=== PATIENT | male | born 1970 | race Two or more races ===

== ENCOUNTER 2021-06-06 09:06 | Outpatient (REF) | payer MEDICARE, MEDICAID, SELFPAY ==
--- NOTE | 2021-06-06 | PFT_ITS ---
Forced vital capacity 78%, FEV1 81%, VYN24-92 81%, and MVV is 90%. Post bronchodilator therapy, there is slight improvement in QUL18-04. Total lung capacity 88%. Residual volume 108%. Diffusion capacity 84%. CONCLUSION: This study is normal and there is no evidence of any restrictive or obstructive airway disorder. Clinical correlation is recommended. Ze Cruz MD MSB/MODL / [id number]
--- NOTE | 2021-06-06 09:01 | CA_ITS ---
Transthoracic Echocardiogram Patient (Last, First, Middle): Jeremy Haynes, Gender: Male Date of : 1970 Age: 50 Procedure Date: 06/06/2021 Procedure Type: Transthoracic Echocardiogram Location: OP Height: 182.88 cm Weight: 113.4 kg BSA: 2.34 m2 Heart Rate: bpm BP: 120 / 78 mmHg Hyperbaric Technician: YR/TO Referring MD: Erika Harding MD Homicide Squad Sergeant: Nolan Morley MD Symptoms: I10 HTN J45.20 MILD INTERMITTENT ASTHMA Study Quality: Fair ECG Rhythm: Sinus Conclusions: - 1. Normal LV systolic function with grade 1 diastolic dysfunction 2. Normal cardiac valvular Doppler 3. Normal RV systolic pressure 4. No pericardial effusion Findings Procedure Information The patient declines contrast. Left Ventricle Normal left ventricular size, thickness, and systolic function. The visually estimated ejection fraction is between 55-60%. Spectral Doppler is indicative of an impaired relaxation filling pattern. E/E prime ratio is <8, consistent with normal filling pressures. Right Ventricle Normal right ventricular cavity size and systolic function. Atria The left atrium is normal in size. There is no evidence of interatrial shunt. The right atrium is normal in size. Aortic Valve Normal aortic valve structure and function. There is no aortic valve stenosis. There is no aortic valve regurgitation. Mitral Valve Normal mitral valve structure and function. There is trace mitral valve regurgitation. There is no mitral valve stenosis. Pulmonic Valve The pulmonic valve was not well visualized. Tricuspid Valve Likely normal tricuspid valve structure and function. There is trace tricuspid valve regurgitation. The right ventricular systolic pressure is normal. The right ventricular systolic pressure is 33 mmHg. Normal right atrial pressure. There is no evidence of pulmonary hypertension. Great Vessels All visible segments of the aorta are normal in size. The pulmonary artery was not well visualized. Venous The inferior vena cava is normal in size and collapses greater than 50% with inspiration. Pericardium/Pleural There is no evidence of pericardial effusion. Prior Study Comparison No prior study available for comparison. Measurements 2D Linear Measurements IVSd: 0.94 0.6-0.9/0.6-1.0 cm LVIDd: 4.64 3.9-5.3/4.2-5.9 cm LVIDd Index: 1.98 2.4-3.2/2.2-3.1 cm/m2 LVIDs: 2.89 2.0-3.6 cm LVPWd: 0.92 0.7-1.1 cm LA Diam: 4.10 2.7-3.8/3.0-4.0 cm LAIDs Index: 1.75 1.5-2.3 cm/m2 LV Mass: 181.32 67-162/88-224 g LV Mass Index: 77.49 43-95/49-115 g/m2 LVOT Diam: 2.20 3.0+(-)1.3 cm 2D Systolic Function EF 4C: 57.80 >55% EF 2C: 57.70 >55% EF BiP: 57.80 >55% Mitral Valve MV Pk E: 0.67 MV PK A: 0.74 MV Decel Time: 280.00 E/A: 0.90 E'Lateral: 10.90 E'Medial: 10.10 E/E' Med: 6.60 E/E' Lat: 6.10 PHT: 82.00 MVA PHT: 2.68 Decel Kaufman: 2.39 Aortic Valve AoV Pk Olman: 1.48 AoV Mn Olman: 0.98 AoV VTI: 0.31 AoV Pk Grad: 9.00 Aov Mn Grad: 4.00 DEMARCUS Cont.VTI: 2.63 LVOT LVOT Pk Olman: 0.98 LVOT Mn Olman: 0.72 LVOT VTI: 0.21 LVOT Pk Grad: 4.00 LVOT Mn Grad: 2.00 LVOT Diam: 2.20 LVOT Area: 3.80 Diastolic Function MV Pk E: 0.67 MV Pk A: 0.74 E/A: 0.90 E'Medial: 10.10 E/E' Med: 6.60 E' Laterial: 10.90 E/E' Lat: 6.10 Right Ventricle TAPSE (mm): 20.70 TVS' Olman: 13.70 Tricuspid Valve TR Pk Olman: 2.48 TR Pk Grad: 25.00 RA Press: 8.00 RVSP: 33.00 Great Vessels Aorta Sinus of Valsalva: 3.11 2.0-3.[address] Ridge: 2.71 1.7-3.4 cm Ao Asc: 3.60 2.1-3.4 cm Updated in Other Vendor System with Status of Final Nolan Morley MD electronically signed on 06/07/2021 3:31:26 PM with status of Final
== END 2021-06-06 09:07 | disposition home or self-care (01) ==
LOC: HO.RESP 09:06
PROVIDERS: PCP Internal Medicine; Visit Provider Internal Medicine
DX: J45.20 Mild intermittent asthma, uncomplicated (principal); I10 Essential (primary) hypertension
CPT/HCPCS: 93306; 94060; 94727; 94729

== ENCOUNTER 2023-06-22 16:21 | Outpatient (REF) | payer MEDICAID, SELFPAY ==
--- NOTE | ~2023-06-22 | US_ITS ---
EXAMINATION: US RETROPERITONEAL LIMITED (RENAL ONLY) CLINICAL INFORMATION: Right-sided low back pain, hematuria, rule out kidney stone. COMPARISON: None available. TECHNIQUE: Ultrasound images of the bilateral kidneys. Limited visualization due to bowel gas. FINDINGS: RIGHT KIDNEY: 1.7 x 5.4 x 6.5 cm (SAG x AP x TRV). No hydronephrosis. No renal calculi. Renal cortical thickness is normal. Limited visualization. 1.0 cm upper pole and 0.9 cm lower pole cysts with benign features. There is no indication for follow-up imaging. LEFT KIDNEY: 11.4 x 6.5 x 5.7 cm (SAG x AP x TRV). No hydronephrosis. No renal calculi. Renal cortical thickness is normal. Limited visualization. 1.1 cm lower pole and 1.1 cm midpole cysts with benign features. There is no indication for follow-up imaging. US/US renal BI IMPRESSION: No hydronephrosis. No renal calculi. Limited visualization. CT scan could be considered for better visualization based on the clinical assessment.
== END 2023-06-22 16:22 | disposition home or self-care (01) ==
LOC: HO.US 16:21
PROVIDERS: PCP Internal Medicine; Visit Provider Internal Medicine
DX: M54.50 Low back pain, unspecified (principal); R31.29 Other microscopic hematuria; G89.29 Other chronic pain
CPT/HCPCS: 76775

== ENCOUNTER 2023-10-26 15:43 | Outpatient (REF) | payer MEDICAID, SELFPAY ==
--- NOTE | ~2023-10-26 | US_ITS ---
EXAMINATION: US SOFT TISSUE HEAD/NECK CLINICAL INFORMATION: Left parotid gland swelling. COMPARISON: Renal ultrasound 06/22/2023. TECHNIQUE: Linear transducer grayscale and color Doppler examination of the left parotid gland with right parotid gland for comparison. FINDINGS: Within the midportion of the left parotid gland are multiple complex hypoechoic foci the largest measuring 2.4 x 1.4 x 1.8 cm potentially representing parotid masses versus abnormal-appearing lymph nodes abutting the left parotid gland. The right parotid gland appears within normal limits. US/US soft tiss head and/or neck IMPRESSION: Within the midportion of the left parotid gland are multiple complex hypoechoic foci the largest measuring 2.4 x 1.4 x 1.8 cm potentially representing parotid masses versus abnormal-appearing lymph nodes abutting the left parotid gland. Further evaluation with contrast-enhanced CT or MRI of the neck can be considered. Electronically signed by: Yue Mccracken MD 10/31/2023 07:13 PM EDT
== END 2023-10-26 15:44 | disposition home or self-care (01) ==
LOC: HO.US 15:43
PROVIDERS: PCP Internal Medicine; Visit Provider Nurse Practitioner
DX: R22.9 Localized swelling, mass and lump, unspecified (principal)
CPT/HCPCS: 76536

== ENCOUNTER 2024-04-08 09:39 | Outpatient (REF) | payer MEDICAID, SELFPAY ==
--- OUTSIDE RECORDS SUMMARY | 2024-04-08 10:13 | XMS_ITS | Encounter Summary ---
Author Organization [employer] Address [address] [facility] [address] [place] [address] Care Team Providers Care Vocal Music Teacher Name Role Phone Erika Harding MD Primary Care Provider + Reason for Visit * Reason Comments Med Refill Encounter Details Date Type Department Care Team (Late st Contact Info) Description 01/04/2024 Refill [facility] [address] [place], [place] [phone] Erika Harding MD [address] [place], [place] [phone] Social History Tobacco Use Types Packs/Day Years Used Date Smoking Tobacco: Every Day Cigarettes 0.5 40 Cigars Passive Smoke Exposure: Current Smokeless Tobacco: Never Comments:Smokes a few cigars a day Alcohol Use Standard Drinks/Week Comments Never 0 (1 standard drink = 0.6 oz pur e alcohol) Housing Stability Answer Date Recorded What is your housing situation today? I have geno corey 04/17/[address] you li ve. Do you have problems with any of the following? None of the above 04/17/2023 Food Insecurity Answer Date Recorded Within the past 12 months, y ou worried that your food would run out before you got money to buy more: Never True 04/17/2023 Within the past 12 months,th e food you bought just didn't last and you didn't have enough money to get more: Never True 02/2023 Transportation Answer Date Recorded In the past 12 months, has l ack of transportation kept you from medical appts, meetings, work or from getting things needed for daily living? No 04/17/2023 Utilities Answer Date Recorded In the past 12 months, has t he electric, gas, oil or water company threatened to shut off services in your home? No 04/17/2023 Depression Answer Date Recorded Patient Health Questionnaire-2 Score 0 04/17/2023 Sex and Gender Information Value Date Recorded Sex Assigned at Male 12/16/2021 10:19 AM EDT Legal Sex Male 10:19 AM EDT Gender Identity Male 12/16/2021 10:19 AM EDT Sexual Orientation Choose not to disclose 2021 10:19 AM EDT documented as of this encounter Plan of Treatment Upcoming Encounters Date Type Department Care Team (Late st Contact Info) Description 04/14/2024 10:15 AM EST Office Visit [address] [address] Erika Harding MD [address] [place] [phone] 04/20/2024 2:00 PM EST Clinical Support [address] [address] Padma Mujica, REMBERTO documented as of this encounter Visit Diagnoses Not on filedocumented in this encounter Care Teams Vocal Music Teacher Relationship Specialty Start Date End Date Erika Harding MD [address] [place] [phone] PCP - General Family Medicine 11/28/15 documented as of this encounter
--- OUTSIDE RECORDS SUMMARY | 2024-04-08 10:13 | XMS_ITS | Encounter Summary ---
Author Organization [employer] Address [address] [facility] [address]t [place] [address] Care Team Providers Care Fish Straightener Name Role Phone Erika Harding MD Primary Care Provider + Reason for Visit * Reason Comments Med Change Request Encounter Details Date Type Department Care Team ([facility] st Contact Info) Description 03/02/2024 Refill [facility] [address] [place], [place] [phone] Erika Harding MD [address] [place], [place] [phone] Social History Tobacco Use Types Packs/Day Years [...] Description 04/14/2024 10:15 AM EST Office Visit [address] [address] Erika Harding MD [address] [place] [address] 04/20/2024 2:00 PM EST Clinical Support [address] [address] Padma Mujica, REMBERTO documented as of this encounter Visit Diagnoses Not on filedocumented in this encounter Care Teams Fish Straightener Relationship Specialty Start Date End Date Erika Harding MD [address] [place] [phone] PCP - General Family Medicine 11/28/15 documented as of this encounter
--- OUTSIDE RECORDS SUMMARY | 2024-04-08 10:13 | XMS_ITS | Encounter Summary ---
Author Organization [employer] Address [address] [facility] [address] [place] [address] Care Team Providers Care Skiving Machine Operator Name Role Phone Erika Harding MD Primary Care Provider + Reason for Visit * Reason Onset Date Comments Med Refill 03/29/2024 Encounter Details Date Type Department Care Team ([facility] st Contact Info) Description 03/29/2024 Refill [facility] [address] [place], [place] [phone] rEika Harding MD [address] [place] [address] Chronic bilateral low back pain with right-sided sciatica Social History Tobacco Use Types Packs/Day Years Used Date Smoking Tobacco: Every Day Cigarettes 0.5 40 Cigars Passive Smoke Exposure: Current Smokeless Tobacco: Never Comments:Smokes a few cigars a day Alcohol Use Standard Drinks/Week Comments Never 0 (1 standard drink = 0.6 oz pur e alcohol) Housing Stability Answer Date Recorded What is your housing situation today? I have geno nicole 04/17/[address] you li [...] AM EDT documented as of this encounter Miscellaneous Notes * Telephone Encounter - Tonia Tobin - 03/29/2024 8:34 AM EST TC from pt requesting medication refill. Medications needing refill : oxyCODONE (Roxicodone) 5 MG immediate release tablet To be sent to: [facility]/pharmacy #[id number] [place], [place] - [address] documented in this encounter Plan of Treatment Upcoming Encounters Date Type Department Care Team (Late st Contact Info) Description 04/14/2024 10:15 AM EST Office Visit [address] [address] Erika Harding MD [address] [place] [phone] 04/20/2024 2:00 PM EST Clinical Support [facility] [address] [place] [phone] Padma Mujica, REMBERTO documented as of this encounter Visit Diagnoses Diagnosis Chronic bilateral low back pain with right-sided sciatica documented in this encounter Care Teams Skiving Machine Operator Relationship Specialty Start Date End Date Erika Harding MD [address] [place] [phone] PCP - General Family Medicine 11/28/15 documented as of this encounter
--- OUTSIDE RECORDS SUMMARY | 2024-04-08 10:13 | XMS_ITS | Encounter Summary ---
Author Organization [employer] Address [address] [facility] [address] [place] [address] Care Team Providers Care Plant Clerk Name Role Phone Erika Harding MD Primary Care Provider + Reason for Visit * Reason Comments Pre-visit Planning SDOH screening negat omid and tobacco screening negative Encounter Details Date Type Department Care Team ([facility] st Contact Info) Description 03/31/2024 Patient Outreach [facility] [address] [place], [place] [phone] Erika Harding MD [address] [place] [address] Pre-visit Planning (SDOH screening negative and tobacco screening negative) Social History Tobacco Use Types Packs/Day Years [...] Recorded Patient Health Questionnaire-2 Score 0 04/17/2023 Internet Access Answer Date Recorded Internet Access Q1 Yes 03/31/2024 Internet Access Q2 Not on file 03/31/2024 Sex and Gender Information Value Date Recorded Sex Assigned at Male 12/16/2021 10:19 AM EDT Legal Sex Male 10:19 AM EDT Gender Identity Male 12/16/2021 10:19 AM EDT Sexual Orientation Choose not to disclose 2021 10:19 AM EDT documented as of this encounter Progress Notes * Karla Wade - 03/31/2024 10:43 AM EST CC Karla placed successful outbound call to patient for pre-visit planning. Patient name and confirmed. Patient confirms appointment date and time, and has transportation arrangements. Biggest concern for appointment at this time is none Appropriate screenings completed in anticipation of appointment. documented in this encounter Plan of Treatment Upcoming Encounters Date Type Department Care Team (Late st Contact Info) Description 04/14/2024 10:15 AM EST Office Visit [address] [address] Erika Harding MD [address] [place] [address] 04/20/2024 2:00 PM EST Clinical Support [address] [address] Padma Mujica RN documented as of this encounter Visit Diagnoses Not on filedocumented in this encounter Care Teams Plant Clerk Relationship Specialty Start Date End Date Erika Harding MD [address] [place] [phone] PCP - General Family Medicine 11/28/15 documented as of this encounter
--- OUTSIDE RECORDS SUMMARY | 2024-04-08 10:13 | XMS_ITS | Encounter Summary ---
Author Organization [employer] Address [address] [facility] 7t [place] [address] Care Team Providers Care Brass Sorter Name Role Phone Erika Harding MD Primary Care Provider + Reason for Visit * Reason Onset Date Comments Med Refill 02/26/2022 Encounter Details Date Type Department Care Team ([facility] st Contact Info) Description 02/26/2022 Telephone [facility] [address] [place], [place] [phone] Erika Harding MD [address] [place], [place] [phone] Med Refill Social History Tobacco Use Types Packs/Day Years Used Date Smoking Tobacco: Every Day Cigarettes 0.3 40 Smokeless Tobacco: Never Alcohol Use Standard Drinks/Week Comments Never 0 (1 standard drink = 0.6 oz pur e alcohol) Sex and Gender Information Value Date Recorded Sex Assigned at Male 12/16/2021 10:19 AM EDT Legal Sex Male 10:19 AM EDT Gender Identity Male 12/16/2021 10:19 AM EDT Sexual Orientation Choose not to disclose 2021 10:19 AM EDT COVID-19 Exposure Response Date Recorded In the last 10 days, have yo u been in contact with someone who was confirmed or suspected to have Coronavirus/COVID-19? No / Unsure 02/19/2022 10:40 AM EST documented as of this encounter Miscellaneous Notes * Telephone Encounter - Yessi Wayne LPN - 02/26/2022 1:56 PM EST Both medications were sent to [facility] # [id number] * Telephone Encounter - Lew Dawn - 02/26/2022 1:44 PM EST Tc from pt requesting med refill Lisinopril 10 mg ) ( metoprolol xl 100 mg ) documented in this encounter Plan of Treatment Upcoming Encounters Date Type Department Care Team (Late st Contact Info) Description 04/14/2024 10:15 AM EST Office Visit [address] [address] Erika Harding MD [address] [place] [phone] 04/20/2024 2:00 PM EST Clinical Support [address] [address] Padma Mujica RN documented as of this encounter Visit Diagnoses Not on filedocumented in this encounter Care Teams Brass Sorter Relationship Specialty Start Date End Date Erika Harding MD [address] [place] [phone] PCP - General Family Medicine 11/28/15 documented as of this encounter
--- OUTSIDE RECORDS SUMMARY | 2024-04-08 10:14 | XMS_ITS | Encounter Summary ---
Author Organization [facility] Address [address] [place] [address] Care Team Providers Care Record Librarian Name Role Phone Giovani Tinoco MD Primary Care Provider [phone] Reason for Visit * Reason Comments Obesity Encounter Details Date Type Department Care Team (Late st Contact Info) Description 03/25/2024 9:00 AM EST Nutrition Bariatric Surgery - [place] [address] [phone] Judy Garner [address] [phone] Class 2 obesity with body mass index (BMI) of 37.0 to 37.9 in adult, unspecified obesity type, unspecified whether serious comorbidity present (Primary Dx) Social History Tobacco Use Types Packs/Day Years Used Date Smoking Tobacco: Every Day Cigarettes Smokeless Tobacco: Never Alcohol Use Standard Drinks/Week Comments No 0 (1 standard drink = 0.6 oz pur e alcohol) Sex and Gender Information Value Date Recorded Sex Assigned at Not on file Legal Sex Male 4:33 AM EST Gender Identity Not on file Sexual Orientation Not on file documented as of this encounter Last Filed Vital Signs Vital Sign Reading Time Taken Comments Blood Pressure - - Pulse - - Temperature - - Respiratory Rate - - Oxygen Saturation - - Inhaled Oxygen Concentration - - Weight 123 kg (271 lb) 03/25/2024 8:59 AM EST Height - - Body Mass Index 37.8 02/19/2024 8:26 AM EST documented in this encounter Progress Notes * Judy Garner RD - 03/25/2024 9:00 AM EST ??Fue un placer conocerte! Estos son los requisitos del programa en los que puede trabajar a ybarra propio ritmo: Laboratorios: Ybarra trabajo de laboratorio bee sido ordenado y est?? en la computadora. Puede ir a [facility] en [address], [address], cuando est?? listo. Abren a las 7:30 am. Tambi??n puede ir a otro laboratorio de [facility] que puede estar m??s convenientemente ubicado. No se permite comida/bebida despu??s de la medianoche, por favor, estos son laboratorios en ayunas. ??NADA DE CHICLES, CARAMELOS, MENTA, TUMS O AGUA PURVI ZO HORA ANTES! Evaluaci??n psicol??gica: Tienes dos opciones para tu evaluaci??n psicol??delaney Pino. Shania Cameron [phone] [facility], [facility] [phone] Ambos est??n haciendo visitas remotas. Llame a cualquiera de ellos y h??orion saber que est?? en elPrograma [facility]??[facility]rico de [facility] y necesita zo evaluaci??n psicol??gica. Aseg??rese de proporcionar ybarra nombre, n??bud y fecha de nacimiento. Examen f??sico: debe realizarse un examen f??sico con ybarra m??dico de atenci??n primaria en el ??ltimo a??o. Si no bee tenido sony, llame para programar un examen f??sico. Si no est?? seguro, llame al consultorio de ybarra m??dico para preguntar. Si ybarra oficina de atenci??n primaria *no* est?? dentro de Giving Assistant, p??dales que env??en por fax ybarra nota de la oficina al [phone]. Lawrence de apoyo (cuestionario): complete el cuestionario adjunto y devu??lvalo (se incluyen instrucciones). Metas creadas por el paciente: Objetivo de prote??mookie: 60-80 g al d??a La primera prioridad es la prote??na, seguida de las verduras sin almid??n y luego los carbohidratos de aileen calidad, oniel frutas y cereales integrales. Evite saltarse comidas, coma cada 3-5 horas Prepare las comidas con anticipaci??n Objetivo de l??quidos: 64 onzas diarias, sorber lentamente purvi todo el d??a Omitir refrescos Batidos de prote??mookie: pueden reemplazar zo comida o un refrigerio; busque entre 20 y 30 g de prote??na y menos de 5 g de az??car agregada (premeir, asegurar m??xima prote??na, fairlife) Prote??na en polvo sin sabor: se puede mezclar con cualquier cosa que coma o jane y no cambiar?? elsabor (orgain, isopure, unjury) Puede comenzar con un multivitam??luis fernando general Cirug??as comunes realizadas: manga g??strica, bypass g??strico * Judy Garner RD - 03/25/2024 9:00 AM EST NUTRITION FOLLOW-UP NOTE: Patient Name: Jeremy Haynes Date of : 1970 Date of Service: 03/25/2024 SURGEON: Dr. Fiona Shea DESIRED SURGERY: undecided- reviewed options today Pt presents with who translated CHIEF COMPLAINT: Obesity HISTORY: Jeremy Haynes is a 53 y.o. male who presents for nutrition visit for preop bariatric surgery. This is their 2 visit. Ht Readings from Last 1 Encounters: 02/19/24 1.803 m (71 ) Wt Readings from Last 3 Encounters: 03/25/24 123 kg (271 lb) 02/23/24 121 kg (267 lb) 02/19/24 122 kg (268 lb) Body mass index is 37.8 kg/m??. Wt at initial: 268 Wt change since initial: +3 EBW = current - wt at BMI of 25: 271-180=91 Challenges: still smoking- anxiety and eating from trying to quit Changes since last visit: reduced portions, minimize rice, more water, less soda EATING HABITS/DIET RECALL: Breakfast: skips or weekend with eggs with veggies ham cheese Lunch: baked potatoes or skips Dinner: cabbage soup with beef carrots, seafood salad or lentil soup Snacks: pashto yogurt and fruit Beverages: less soda, more water 64 ounces daily, crystal light, zero sugar juice Dines out: out for lunch sometimes Exercise: back pain, recent knee surgery- told to take it easy from PCP ALLERGIES: Allergies Allergen Reactions Aspirin Swelling Ibuprofen Swelling Nutrition diagnosis: Class II obesity related to Undesirable food choices and skipped mealsas evidenced by BMI of 37.8 Patient-created Goals: Protein goal: 60-80g daily First priority protein followed by non starchy vegetables then high quality carbohydrates such as fruits and whole grains Avoid skipping meals, eat every 3-5 hours Prepare meals ahead of time Fluid goal: 64 ounces daily, slowly sip all day long Omit soda Protein shakes- can replace a meal or snack look for 20-30g of protein and less than 5g of added sugar (premeir, ensure max protein, fairlife) Unflavored protein powder- can mix into anything your eating or drinking will not change the taste (orgain, isopure, unjury) Can start general multivitamin Common surgeries performed: gastric sleeve, gastric bypass Literature Provided: Pt centered goals and RD contact information Interventions: Discuss importance of eating at least 3 meals per day and the impact on metabolism, Discussed the need to have protein with each meal and snack, Discussed the plate method and balancedmeals, Discussed carbohydrate foods and the impact on blood sugar levels, Discussed the importance of drinking enough water, and Discussed the importance of multivitamin supplementation Nutrition assessment: Pt is 53 y.o. male with h/o has a past medical history of Allergic rhinitis (07/07/2012), Asthma, and Hand fracture (2010). Class II obesity Stage of change/Barriers to understanding: Pt is motivated to make changes to diet and lifestyle, translated Concerns regarding considerations for bariatric surgery: Patient voiced none and RD has none at this time Monitoring/Evaluation: monitor weight, monitor progress toward nutrition goals, and monitor compliance with program overall Patient nutritionally ready for surgery: no pt needs to improve dietary habits, complete labs, physical, support group and psych clearance. RD to see patient for follow-up nutrition visit in 1 months Visit Time: The total time of this visit was 30 minutes of which we spent 30 minutes (>50% of the time spent) in direct [id number] consultation for counseling, reviewing medical record and/or coordinating the plan as described above. Judy Garner RD NUTRITION SERVICES Cosigned by Jennifer Bañuelos MD at 03/25/2024 10:35 AM EST documented in this encounter Plan of Treatment Upcoming Encounters Date Type Department Care Team (Late st Contact Info) Description 04/14/2024 8:00 AM EST Appointment [facility] Xray [address] [place] [address] 04/22/2024 9:00 AM EST Nutrition Bariatric Surgery - [place] 175 [facility] [address] [place] [phone] Judy Garner, RD [address] [address] documented as of this encounter Visit Diagnoses Diagnosis Class 2 obesity with body mass index (BMI) of 37.0 to 37.9 in adult, unspecified obesity type, unspecified whether serious comorbidity present- Primary documented in this encounter Care Teams Record Librarian Relationship Specialty Start Date End Date Giovani Tinoco MD [address] [place] [phone] PCP - General Internal Medicine 12/28/23 documented as of this encounter
--- OUTSIDE RECORDS SUMMARY | 2024-04-08 10:14 | XMS_ITS | Encounter Summary ---
Author Organization [employer] Address [address] [facility] 7t [place] [address] Care Team Providers Care Pottery Decoration Designer Name Role Phone Erika Harding MD Primary Care Provider + Encounter Details Date Type Department Care Team (Late Contact Info) Description 04/18/2022 Abstract [facility] ADULT DENTAL [address] [place] [address] Heladio Alberts, SANYA [address] [place], [place] [phone] Social History Tobacco Use Types Packs/Day Years Used Date Smoking Tobacco: Every Day Cigarettes 0.3 40 Passive Smoke Exposure: Never Smokeless Tobacco: Never Alcohol Use Standard Drinks/Week Comments Never 0 (1 standard drink = 0.6 oz pur e alcohol) Depression Answer Date Recorded Patient Health Questionnaire-2 Score 0 04/09/2022 Sex and Gender Information Value Date Recorded [...] suspected to have Coronavirus/COVID-19? No / Unsure 04/09/2022 8:55 AM EST documented as of this encounter Plan of Treatment Upcoming Encounters Date Type Department Care Team (Late Contact Info) Description 04/14/2024 10:15 AM EST Office Visit [facility] MEDICINE [address] [place] [address] Erika Harding MD [address] [place] [phone] 04/20/2024 2:00 PM EST Clinical Support [facility] MEDICINE [address] [place] [address] [phone] Padma Mujica RN documented as of this encounter Visit Diagnoses Not on filedocumented in this encounter Care Teams Pottery Decoration Designer Relationship Specialty Start Date End Date Erika Harding MD [address] [place] [address] PCP - General Family Medicine 11/28/15 documented as of this encounter
--- OUTSIDE RECORDS SUMMARY | 2024-04-08 10:14 | XMS_ITS | Encounter Summary ---
Author Organization [employer] Address [address] [facility] 7t [place] [address] Care Team Providers Care Accountant Budget Name Role Phone Erika Harding MD Primary Care Provider + Encounter Details Date Type Department Care Team (Late Contact Info) Description 03/27/2022 Abstract [facility] ADULT DENTAL [address] [place], [place] [phone] Jeremy Morse DDS [address] [place], [place] [phone] Social History Tobacco Use Types Packs/Day Years [...] suspected to have Coronavirus/COVID-19? No / Unsure 03/27/2022 1:41 PM EST documented as of this encounter Plan of Treatment Upcoming Encounters Date Type Department Care Team (Late Contact Info) Description 04/14/2024 10:15 AM EST Office Visit [facility] MEDICINE [address] [place] [address] Erika Harding MD 230 [place], [place] [phone] 04/20/2024 2:00 PM EST Clinical Support [facility] MEDICINE [address] [place], [place] [phone] Padma Mujica, RN documented as of this encounter Visit Diagnoses Not on filedocumented in this encounter Care Teams Accountant Budget Relationship Specialty Start Date End Date Erika Harding MD 230 [place] [address] PCP - General Family Medicine 11/28/15 documented as of this encounter
--- OUTSIDE RECORDS SUMMARY | 2024-04-08 10:14 | XMS_ITS | Encounter Summary ---
Author Organization [employer] Address [address] [facility] 7t [place] [address] Care Team Providers Care Forest Nursery Worker Name Role Phone Erika Harding MD Primary Care Provider + Encounter Details Date Type Department Care Team ([facility] st Contact Info) Description 06/25/2023 Orders Only [facility] [address] [place], [place] [phone] Erika Harding MD [address] [place] [address] Social History Tobacco Use Types Packs/Day Years [...] Description 04/14/2024 10:15 AM EST Office Visit [address] [phone] Erika Harding MD [address] [place] [phone] 04/20/2024 2:00 PM EST Clinical Support [address] [phone] Padma Mujica, REMBERTO documented as of this encounter Procedures Procedure Name Priority Date/Time Associated Diagnosis Comments PULMONARY FUNCTION TESTING Routine 06/07/2023 2:09 PM EDT documented in this encounter Results * Pulmonary function testing (06/07/2023 2:09 PM EDT) Erika Harding MD PFT ORDERABLES Final Re sult documented in this encounter Visit Diagnoses Not on filedocumented in this encounter Care Teams Forest Nursery Worker Relationship Specialty Start Date End Date Erika Harding MD [address] [place] [phone] PCP - General Family Medicine 11/28/15 documented as of this encounter
--- OUTSIDE RECORDS SUMMARY | 2024-04-08 10:14 | XMS_ITS | Clinical Summary ---
Author Organization [address] [facility] Address 175 [place] [address] Phone Care Team Providers Care Animal Care Specialist Name Role Phone Giovani Tinoco MD Primary Care Provider [phone] Allergies Active Allergy Reactions Criticality Noted Date Comments Aspirin Swelling 07/07/2012 Ibuprofen Swelling 07/07/2012 Medications lisinopriL (PRINIVIL,ZESTR IL) 20 mg tablet Take 1 tablet (20 mg total) by mouth 1 (one) time each day. 3 Active metoprolol succinate (TOPROL-XL) 100 mg 24 hr tablet Take 1 tablet (100 mg total) by mouth 1 (one) time each day. 3 Active FOLIC ACID ORAL by Not Applicable route 1 (one) time each day. Active CYANOCOBALAMIN, VITAMIN B-12, ORAL Take by mouth 1 (one) time each day. Active albuterol HFA (PROAIR HFA ; PROVENTIL HFA ; VENTOLIN HFA) 90 mcg/actuation inhaler Inhale 2 Puffs into the lungs every 4 hours as needed for Wheezing. 3 Active Active Problems Problem Noted Date Diagnosed Date Class 2 obesity with body ma ss index (BMI) of 37.0 to 37.9 in adult 02/23/2024 Cocaine abuse 03/09/2013 Overview (01/06/2024): See uds 02/2013 Degeneration of cervical intervertebral disc Degenerative lumbar disc 07/07/2012 Allergic rhinitis 07/07/2012 HTN (hypertension) 05/12/2012 Hypothyroidism 05/12/2012 Overview (01/06/2024): ? diagnosis correct Asthma 05/12/2012 Encounters Date Type Department Care Team Description 03/25/2024 9:00 AM EST Nutrition Bariatric Surgery [address] [phone] Class 2 obesity with body mass index (BMI) of 37.0 to 37.9 in adult, unspecified obesity type, unspecified whether serious comorbidity present (Primary Dx) 02/24/2024 Telephone Bariatric Surgery [address] [phone] Jennifer Bañuelos MD 02/23/2024 8:30 AM EST Nutrition Bariatric Surgery [address] [phone] Class 2 obesity with body mass index (BMI) of 37.0 to 37.9 in adult, unspecified obesity type, unspecified whether serious comorbidity present (Primary Dx) 02/19/2024 8:30 AM EST Office Visit Bariatric Surgery [address] [phone] Fiona Shea MD Obesity (BMI 30-39.9) (Primary Dx); Gastroesophageal reflux disease, unspecified whether esophagitis present; Sleep apnea, unspecified type from Last 3 Months Surgical History Surgery Date Site/Laterality Comments APPENDECTOMY -1989 PROCEDURE: DC APPENDEC INDICATED PURPOSE OTH MAJOR PX NOT SPX UMBILICAL HERNIA REPAIR -2003 PROCEDURE: LAP UMBILICAL HERNIA REPAIR Medical History Medical History Date Comments Hand fracture 2010 DX:Hand fracture ; COMMENT: right metcarpal - casted Asthma DX:Asthma Allergic rhinitis 07/07/2012 DX:Allergic rh initis Family History Relation Name Status Comments Brother 1 Alive Brother 2 Alive Father Mother Alive Social History Tobacco Use Types Packs/Day Years Used Date Smoking Tobacco: Every Day Cigarettes Smokeless Tobacco: Never Alcohol Use Standard Drinks/Week Comments No 0 (1 standard drink = 0.6 oz pur e alcohol) Sex and Gender Information Value Date Recorded Sex Assigned at Not on file Legal Sex Male 4:33 AM EST Gender Identity Not on file Sexual Orientation Not on file Obstetrics History Last Filed Vital Signs Vital Sign Reading Time Taken Comments Blood Pressure 129/76 02/19/2024 8:26 AM EST Pulse 66 02/19/2024 8:26 AM EST Temperature 36.9 ??C (98.5 ??F) 02/19/2024 8:26 AM ES T Respiratory Rate - - Oxygen Saturation - - Inhaled Oxygen Concentration - - Weight 123 kg (271 lb) 03/25/2024 8:59 AM EST Height 180.3 cm (5' 11 ) 02/19/2024 8:26 AM EST Body Mass Index 37.8 02/19/2024 8:26 AM EST Plan of Treatment Upcoming Encounters Date Type Department Care Team (Late st Contact Info) Description 04/14/2024 8:00 AM EST Appointment [facility] Xray [address] [place] [phone] 04/22/2024 9:00 AM EST Nutrition Bariatric Surgery - [place] [address] [phone] Judy Garner, RFEDY [address] [phone] Health Maintenance Due Date Last Done Comments DTaP,Tdap,and Td Vaccines (1 - Tdap) 1989 Hepatitis A Vaccines (1 of 2 - Risk 2-dose series) 1989 Hepatitis B Vaccines (1 of 3 - 19+ 3-dose series) 1989 Pneumococcal Vaccine: 50+ Ye ars (1 of 2 - PCV) 1989 Pneumococcal Vaccine: Pediat rics (0 to 5 Years) and At-Risk Patients (6 to 64 Years) (1 of 2 - PCV) 1989 Zoster Vaccines (1 of 2) 2020 Cholesterol Screening (Lipid Panel) 01/19/2022 Colorectal Cancer Screening: Colonoscopy 01/19/2022 Depression Screening 01/19/2022 HIV Screening 01/19/2022 Hepatitis C Screening 01/19/2022 Lung Cancer Screening (Low Dose CT) 01/19/2022 Social Influencers of Health Screening 01/19/2022 Hypertension/CHF/CAD Annual BMP Blood Test 02/01/2022 COVID-19 Vaccine ( - 2023-2 5 season) 2023 Influenza Vaccine (#1) 2023 HIB Vaccines Aged Out No longer eligi ble based on patient's age to complete this topic HPV Vaccines Aged Out No longer eligi ble based on patient's age to complete this topic IPV Vaccines Aged Out No longer eligi ble based on patient's age to complete this topic MMR Vaccines Aged Out No longer eligi ble based on patient's age to complete this topic Meningococcal ACWY Vaccine Aged Out N o longer eligible based on patient's age to complete this topic Meningococcal B Vacine Aged Out No lo nger eligible based on patient's age to complete this topic RSV Immunization Patients Un felicitas 20 months Aged Out No longer eligible b ased on patient's age to complete this topic Varicella Vaccines Aged Out No longer eligible based on patient's age to complete this topic Insurance MEDICARE MEDICAID - [place] Care Teams Animal Care Specialist Relationship Specialty Start Date End Date Giovani Tinoco MD [address] [place] [phone] PCP - General Internal Medicine 12/28/23
--- OUTSIDE RECORDS SUMMARY | 2024-04-08 10:14 | XMS_ITS | Encounter Summary ---
Author Organization [employer] Address [address] [facility] 7t [place] [address] Care Team Providers Care Environmental Science Instructor Name Role Phone Erika Harding MD Primary Care Provider + Reason for Visit * Reason Onset Date Comments Call Back Request 12/18/2022 Encounter Details Date Type Department Care Team ([facility] Contact Info) Description 12/18/2022 Telephone [facility] MEDICINE 230 [place], [place] [phone] Erika Harding MD 230 [place], [place] [phone] Call Back Request Social History Tobacco Use Types Packs/Day Years Used Date Smoking Tobacco: Every Day Cigarettes 0.3 40 Cigars Passive Smoke Exposure: Current Smokeless Tobacco: Never Tobacco Cessation:Ready to Q uit: No; Counseling Given: Yes Comments:Smokes a few cigars a day Alcohol Use Standard Drinks/Week Comments Never 0 (1 standard drink = 0.6 oz pur e alcohol) Housing Stability Answer Date Recorded What is your housing situation today? I have geno nicole 12/12/[address] you li ve. Do you have problems with any of the following? None of the above 12/12/2022 Food Insecurity Answer Date Recorded Within the past 12 months, y ou worried that your food would run out before you got money to buy more: Never True 12/12/2022 Within the past 12 months,th e food you bought just didn't last and you didn't have enough money to get more: Never True Transportation Answer Date Recorded In the past 12 months, has l ack of transportation kept you from medical appts, meetings, work or from getting things needed for daily living? No 12/12/2022 Utilities Answer Date Recorded In the past 12 months, has t he electric, gas, oil or water company threatened to shut off services in your home? No 12/12/2022 Depression Answer Date Recorded Patient Health Questionnaire-2 Score 0 04/09/2022 Sex and Gender Information Value Date Recorded Sex Assigned at Male 12/16/2021 10:19 AM EDT Legal Sex Male 10:19 AM EDT Gender Identity Male 12/16/2021 10:19 AM EDT Sexual Orientation Choose not to disclose 2021 10:19 AM EDT documented as of this encounter Last Filed Vital Signs Vital Sign Reading Time Taken Comments Blood Pressure 117/67 12/18/2022 10:21 AM EDT Pulse 90 12/18/2022 10:21 AM EDT Temperature 36.8 ??C (98.2 ??F) 12/18/2022 10:21 AM E DT Respiratory Rate - - Oxygen Saturation 97% 12/18/2022 10:21 AM EDT Inhaled Oxygen Concentration - - Weight - - Height - - Body Mass Index - - documented in this encounter Miscellaneous Notes * Telephone Encounter - Chiqui Cantor - 12/18/2022 8:55 AM EDT Tc from pt returning your call :) documented in this encounter Plan of Treatment Upcoming Encounters Date Type Department Care Team (Late st Contact Info) Description 04/14/2024 10:15 AM EST Office Visit [address] [address] Erika Harding MD [address] [place] [phone] 04/20/2024 2:00 PM EST Clinical Support [address] [address] Padma Mujica RN documented as of this encounter Visit Diagnoses Not on filedocumented in this encounter Care Teams Environmental Science Instructor Relationship Specialty Start Date End Date Erika Harding MD 230 [place] [address] PCP - General Family Medicine 11/28/15 documented as of this encounter
--- OUTSIDE RECORDS SUMMARY | 2024-04-08 10:14 | XMS_ITS | Encounter Summary ---
Author Organization [employer] Address 75 [facility] 7t [place] [address] Care Team Providers Care Client Technical Support Associate Name Role Phone Eirka Harding MD Primary Care Provider + Reason for Visit * Reason Onset Date Comments Lab Orders 04/08/2024 Encounter Details Date Type Department Care Team ([facility] st Contact Info) Description 04/08/2024 Telephone [facility] MEDICINE 230 [place], [place] [phone] Erika Harding MD [address] [place], [place] [phone] Lab Orders Social History Tobacco Use Types Packs/Day Years [...] encounter Miscellaneous Notes * Telephone Encounter - Marie Gandhi RN - 04/08/2024 9:36 AM EST TC placed to patient [phone] in regards to below message. Patients answered however RN obtained permission from patient to speak to . informed BW orders have been faxed to [place] [phone], confirmation page results. verbalized understanding. to f/u PRN. * Telephone Encounter - Dioni Kulkarni - 04/08/2024 9:03 AM EST Tc from pt spouse requesting that lab orders that were recently requested on last PCP appt be sent to [facility] because pt states that the lab from [facility] is more covinent to him. Spouse Contact: documented in this encounter Plan of Treatment Upcoming Encounters Date Type Department Care Team (Late st Contact Info) Description 04/14/2024 10:15 AM EST Office Visit [facility] MEDICINE [address] [place] [phone] Erika Harding MD [address] [place] [address] 04/20/2024 2:00 PM EST Clinical Support [facility] MEDICINE 230 [place] [address] Padma Mujica, RN documented as of this encounter Visit Diagnoses Not on filedocumented in this encounter Care Teams Client Technical Support Associate Relationship Specialty Start Date End Date Erika Harding MD [address] [place] [address] PCP - General Family Medicine 11/28/15 documented as of this encounter
--- OUTSIDE RECORDS SUMMARY | 2024-04-08 10:14 | XMS_ITS | Clinical Summary ---
Author Organization [employer] Address [address] [facility] [address] [place] [address] Care Team Providers Care Criminal Research Specialist Name Role Phone Erika Harding MD Primary Care Provider + Allergies Active Allergy Reactions Criticality Noted Date Comments Aspirin Swelling 04/18/2016 Swelling eyes, face. Ibuprofen Swelling 03/12/2022 Eyes, face swelling. Tramadol Swelling 03/12/2022 Swelling eyes, face. Medications loratadine (Claritin) 10 MG tabletIndications :Allergic conjunctivitis of both eyes TAKE 1 TABLET BY MOUTH EVERY DAY IN THE MORNING 90 tablet 023 Active acetaminophen (Tylenol) 500 MG tabletIndications :Chronic bilateral low back pain with right-sided sciatica Take 2 tablets (1,000 mg) by mouth every 6 (six) hours if needed for moderate pain or fever for up to 25 doses. 50 tablet 024 Active loteprednol (Lotemax) 0.5 % ophthalmic suspension 024 Active nicotine polacrilex (Commit) 4 MG lozenge Take 1 tablet by mouth every 2 (two) hours. 022 Active pregabalin (Lyrica) 50 MG capsule TAKE 1 CAPSULE BY MOUTH 3 TIMES DAILY. 90 capsule 024 Active naloxone (Narcan) 4 mg/0.1 mL nasal sprayIndications: Chronic bilateral low back pain with right-sided sciatica Administer 1 spray (4 mg) into affected nostril(s) if needed for opioid reversal. May repeat every 2-3 minutes if needed, alternating nostrils, until medical assistance becomes available. 2 each 3 024 2024 Active tamsulosin (Flomax) 0.4 MG 24 hr capsule Take 1 capsule (0.4 mg) by mouth Once per day. 90 capsule Active dexAMETHasone (Decadron) 4 MG tablet Take 1 tablet (4 mg) by mouth with breakfast and with evening meal for 6 days. 12 tablet Active hydrOXYzine HCl (Atarax) 25 MG tabletIndications :Localized superficial swelling of skin Take 1 tablet (25 mg) by mouth if needed each day for anxiety (for labs) for up to 10 doses. 10 tablet Active metoprolol succinate XL (Toprol-XL) 100 MG 24 hr tabletIndications :HTN (hypertension), benign TAKE 1 TABLET BY MOUTH EVERY DAY IN THE MORNING 90 tablet 1 Active lisinopril-hydroC HLOROthiazide 20-25 MG tablet TAKE 1 TABLET BY MOUTH EVERY DAY 90 tablet 1 Active lisinopril 10 MG tabletIndications :Essential hypertension TAKE 1 TABLET BY MOUTH EVERY DAY (along with lisinopril/hyd rochlorothiazi de) 90 tablet 1 Active lisinopril-hydroC HLOROthiazide 20-25 MG tablet Take 1 tablet by mouth Once per day. 1 tab po/d (along with lisinopril 10mg) 90 tablet 1 Active Menthol, Topical Analgesic, (Icy Hot) 5 % patch Use 1 patch /d to affected area prn pain 30 patch Active nicotine (Nicoderm CQ) 14 MG/24HR patch Place 1 patch on the skin 1 (one) time each day at the same time. 42 patch Active lidocaine (Lidoderm) 5 % patchIndications: Spinal stenosis of lumbar region without neurogenic claudication Apply 1 patch topically Once per day. Remove & discard patch within 12 hours or as directed by MD. 90 patch 3 024 2024 Active albuterol 108 (90 Base) MCG/ACT inhaler INHALE 2 PUFFS EVERY 4 HOURS IF NEEDED FOR WHEEZING. 18 g 5 Active Arnuity Ellipta 100 MCG/ACT inhalerIndication s:Moderate persistent asthma without complication INHALE 1 PUFF IN THE MORNING. RINSE MOUTH WITH WATER AFTER USE TO REDUCE AFTERTASTE AND INCIDENCE OF CANDIDIASIS. DO NOT SWALLOW. 30 each 11 025 Active oxyCODONE (Roxicodone) 5 MG immediate release tabletIndications :Chronic bilateral low back pain with right-sided sciatica Take 1 tablet (5 mg) by mouth every 12 (twelve) hours if needed for severe pain for up to 28 days. Do not start before March 30, 2024. 56 tablet 025 2024 Active oxyCODONE (Roxicodone) 5 MG immediate release tabletIndications :Chronic bilateral low back pain with right-sided sciatica Take 1 tablet (5 mg) by mouth every 12 (twelve) hours if needed for severe pain for up to 28 days. Do not start before March 02, 2024. 56 tablet 025 2024 Discontinued(R eorder (will not trigger notification to Pharmacy)) cromolyn (Opticrom) 4 % ophthalmic solution ADMINISTER 1 DROP INTO THE RIGHT EYE 4 TIMES DAILY FOR 15 DAYS. 10 mL 025 2024 Active Problems Problem Noted Date Diagnosed Date Obesity, morbid 12/04/2023 Assessment & Plan (12/04/2023 1:16 PM EDT): Discussed re weight reduction options including exercise, life style modifications, diet and referral to explosive specialist. Recommended to decrease soda and sugary beverage consumption, increase protein intake with meals (at least 1 portion of protein with each meal) to assist with satiety, increase dietary fiber Recommended at least 150 min/week of moderate intensity exercise. Severe needle phobia 12/04/2023 Assessment & Plan (12/04/2023 1:49 PM EDT): Pt has been unable to get labs done despite being prescribed Lorazepam in the past for procedures. Patient says he has the medication and will take it prior to next BW, patient has otherwise been able to deal with anxiety issues pretty well so far. Nodule of parotid gland 12/04/2023 Assessment & Plan (12/04/2023 1:17 PM EDT): CT scan of the neck scheduled for next month. Information given to patient. Spinal stenosis of lumbar region 07/17/2023 Assessment & Plan (12/04/2023 9:41 AM EDT): MRI 06/2023. Will discuss with Pt importance of daily stretches, weight reduction, and strengthening paravertebral muscles. He declines referral to injections due to needle phobia, will refer to pain clinic to consider TENS unit or spinal simulator. Continue Percocet BID, use after work and follow up with PSYCHIATRIST clinic. Advised to use Tylenol Q6hrs in daytime, heat patch or Lidocaine patch prn. Use donut type pillow to sit on long hours of work. We have done [employer] education re opiate side effects including dizziness, somnolence, constipation, urinary retention, dependance, etc. Patient is aware of the importance of avoiding any activity that requires vigilance while taking these meds including driving. We have discussed re avoiding diversion of medication, including giving pills to relatives. Patient is to keep medications in a safe place and is aware that rx will not be replaced if lost or stolen. Other microscopic hematuria 06/17/2023 Assessment & Plan (06/17/2023 10:08 AM EDT): - associated to lower back pain, most likely urolithiasis - recommended increased water and decreased soda intake, take Oxycodone 3-4x per day max PRN for pain for the next week, he should return to his usual Oxycodone dose BID - start Flomax and f/u in 2 weeks tele-visit Acute exacerbation of chronic low back pain 02/18 Assessment & Plan (06/17/2023 10:08 AM EDT): - most likely related to kidney stone, no significant muscle spasm or radiculopathy symptoms at this time - recommended weight reduction, gave information about weight reduction program Assessment & Plan (03/17/2023 3:31 PM EST): Patient has known lumbar radiculopathy, previously on opiate rx for many years. We discussed about short and roasterman options, he's aware that opiates may not be the ideal or best option in the long run. I will start lower dose of oxycodone with tylenol for 1w (2.5-5mg bid) and see if he can start doing stretches on his own. He needs to come for walk in accupuncture rx No change on other meds. He's cautioned against driving or performing activities that require vigilance (he's out of work now) and should avoid using other meds not prescribed for her or that impair cognition or breathing. I will fu with him in 2-3w and order Xrays to ro an acute lesion/fracture? Diarrhea 07/18/2022 Assessment & Plan (07/18/2022 9:15 AM EDT): unclear if related to gabapentin which is a sideeffect. r/o viral gastroenteritis recommended increased PO fluids, hold on solid foods and move onto BRAT diet over the weekend as tolerated. Use immmodium PRN max of 2 days Cut down on gabapentin to 300mg BID until diarrhea is resolved and then increase back to 600 mg BID and observe and he will call me back PRN diarrhea, otherwise will FU in 2 months. Chronically on opiate therapy 05/14/2022 Overview (07/18/2022): DC on 2022 Assessment & Plan (05/14/2022 1:12 PM EDT): off narcotics for 3 weeks, self detoxed today's utox is negative there is no contraindiciation to drive at this time, will right a letter for work Allergic conjunctivitis of both eyes 05/14/2022 Assessment & Plan (05/14/2022 1:12 PM EDT): Use ketotifen eye dfrops and loratidine FU with costume shop manager. Moderate persistent asthma without complication 04/09/2022 Assessment & Plan (12/04/2023 1:16 PM EDT): Doing well, continue on Albuterol prn only. Counseled to quit smoking, start nicotine patch. Decline influenza immunization. Assessment & Plan (01/28/2023 12:04 PM EST): Significantly improved with Fluticasone BID Non-smoking patient Continue with Fluticasone BID Assessment & Plan (01/06/2023 9:53 AM EST): Uncontrolled Start Fluticasone 100 mg BID Counseled to quit smoking, prescription for nicotine patch sent to pharmacy Pt decline flu and Covid IZ Assessment & Plan (07/07/2022 4:48 PM EDT): most likely related to smoking relapse increase flovent to 220 BID and use ProAir BID for now, fu with me in 1 month Assessment & Plan (04/09/2022 9:39 AM EST): Worsening probably after Covid. Congratulated him for quitting smoking Use albuterol PRN. Order PFTs and start using Flovent 110 BID after that. FU with PFTs SOB (shortness of breath) 04/09/2022 Assessment & Plan (04/09/2022 9:39 AM EST): Most likely related to worsening of asthma as above. R/o CHF Order BNP Counseled regarding weight reduction COVID-19 04/04/2022 Grief 04/04/2022 Nicotine dependence 04/04/2022 Assessment & Plan (12/04/2023 1:16 PM EDT): Agreed to start nicotine patch 14 mg. Pain, joint, knee, right 04/04/2022 Palpitations 04/04/2022 Skin lesion 04/04/2022 Periodontal disease 03/27/2022 Viral upper respiratory tract infection 03/09/19 18 Primary hypertension 12/06/2015 Assessment & Plan (12/04/2023 9:42 AM EDT): Controlled. Labs not done, stressed importance of good follow up of GFR and electrolytes to monitor medication side effects and organ damage. Continue lisinopril/hctz Counseled re low salt diet/increase moderate physical activity. Check home BP BIW and prn CP/PRETTY/SCHWAB Non smoking patient. Pt declined influenza immunization today. Assessment & Plan (04/17/2023 12:21 PM EST): Controlled. Compliant w/meds Continue lisinopril/HCTZ + lisinopril 10 mg Counseled re low salt diet/increase moderate physical activity. Check home BP BIW and prn CP/PRETTY/SCHWAB Non smoking patient. Needs to order labs, fu 2 m Assessment & Plan (01/06/2023 9:46 AM EST): Controlled. Compliant w/meds Continue lisinopril/hctz + lisinopril 10mg Counseled re low salt diet/increase moderate physical activity. Check home BP BIW and prn CP/PRETTY/SCHWAB Counseled to quit smoking. Assessment & Plan (05/14/2022 12:33 PM EDT): BP is at goal. Continue lisinopril Counseled re low salt diet/increase moderate physical activity. Check home BP BIW and prn CP/PRETTY/SCHWAB Non smoking patient. FU in 1 month with labs Assessment & Plan (04/09/2022 9:41 AM EST): Borderline controlled. Continue lisnopril/hctz 20/25 + lisionpril 10 + metoporlol XL 100mg per day Order labs Check BP at home TIW Counseled re low salt diet/increase moderate physical activity. Check home BP BIW and prn CP/PRETTY/SCHWAB Non smoking patient. Congratulated him for quitting smoking. FU in 4 weeks with labs. Chronic low back pain 12/06/2015 Overview (07/17/2023): Lumbar spine/foraminal stenosis: MRI L-spine on 07/01/23 at [facility] Assessment & Plan (07/01/2023 11:50 AM EDT): - seems to be related to radiculopathy, he will need an MRI - had lengthy discussion about treatment options he has declined in the past and he agreed to be referred to pain clinic at this time - pt has declined acupuncture and in house chronic pain clinic as he does not feel comfortable in group settings - pt declined PT ad prefers to do home based exercises - will start Dexamethasone 6 mg BID x one week - Take Oxycodone back down to 5 mg BID, will send new referral to pharmacy if needed - f/u with me in 6 weeks Assessment & Plan (04/17/2023 1:52 PM EST): Pt seems to be doing well and tolerates oxycontin BID, I will write a Rx for 1 m and restart him on an opioid contract I discussed about avoid driving or other activities that don't require vigilance U-Tox and he will fu with PSYCHIATRIST nurse for new intake He has been referred to chronic pain management program and will make an appointment for trigger point injection Assessment & Plan (01/28/2023 12:08 PM EST): Currently on NSADs + methocarbamol pt pending, recommend avoiding lifting heavy objects Avoid heavy duty work Patient is not taking narcotics at this time Assessment & Plan (01/06/2023 9:52 AM EST): Has lumbar radiculopathy with chronic pain disease. Has failed epidural injections in the past DC Tizanidine and start Methocarbamol Recommended to come into acupuncture clinic, I will find FMLA so he can come at least twice per week. Will consider referral to pain clinic if Sx are not significantly improved Pt declined to go back to using oxycontin or methadone for pain management at this time FU 3 m Assessment & Plan (07/18/2022 9:11 AM EDT): Mild to moderate improvement on Gabapentin 600mg bid, has residual paresthesias on right leg. Seems to tolerate fairly well otherwsie Counseled to cut down to 300 mg qam/600mg at bedtime due to diarrhea, return to 600 mg po bid in 2w Continue lidocaine patch + tylenol + exercises. FU in 2m. Assessment & Plan (07/07/2022 4:49 PM EDT): secondary to known DJD of the spine, now off narcotics due to work requirements, unable to drive while taking controlled substances taper down to off unsuccessfully no withdrawal symptoms at this time. increase gabapentin up to 600mg BID, hold for somnolence and fu with me in 4 weeks. use lidocaine patch and tylenol PRN recommended daily stretching exercises and weight reduction. 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 He has minimal withdrawal symptoms at this time, symptoms are mostly related to underlying pain condition Recommended weight reduction to come for acupuncture once per week at least Continue daily stretching exercies and to be able to do stretches every 2 hours Start 100mg gabapentin BID and titrate up to 200mg qhs as tolerated FU with me in 2 weeks Can take tylenol up to 2 g per day, he is allergic to nsaids Mild intermittent asthma 12/06/2015 Encounters Date Type Department Care Team Description 04/08/2024 Telephone [facility] MED[facility]INE [address] [place] [address] Erika Harding MD Lab Orders 03/31/2024 Patient Outreach [facility] [address] [place] [address] Erika Harding MD Pre-visit Planning (SDOH screening negative and tobacco screening negative) 03/29/2024 Refill [facility] [address] [place] [address] Erika Harding MD Chronic bilateral low back pain with right-sided sciatica 03/02/2024 Refill [facility] [address] [place] [address] Erika Harding MD 03/01/2024 Refill [facility] [address] [place] [address] Erika Harding MD Moderate persistent asthma without complication 02/29/2024 Telephone [facility] MED[facility]INE [address] [place] [address] Erika Harding MD Med Refill 02/29/2024 Refill [facility] [address] [place] [address] Erika Harding MD Chronic bilateral low back pain with right-sided sciatica 02/18/2024 Telephone [facility] MED[facility]INE [address] [place] [address] Erika Harding MD April recall 02/02/2024 Refill [facility] MED[facility] [address] [place] [address] Erika Harding MD Chronic bilateral low back pain with right-sided sciatica 01/27/2024 2:00 PM EST Clinical Support [address] [address] Padma Mujica RN Chronic bilateral low back pain with right-sided sciatica (Primary Dx) 01/27/[address] [address] Padma Mujica, REMBERTO Oxycodone count 01/27/2024 Travel 01/27/2024 Telephone [facility] [address] [place] [address] Padma Mujica, REMBERTO Recommend PSYCHIATRIST Tier 2 from Last 3 Months Social History Tobacco Use Types Packs/Day Years Used Date Smoking Tobacco: Every Day Cigarettes 0.5 40 Cigars Passive Smoke Exposure: Current Smokeless Tobacco: Never Tobacco Cessation:Ready to Q uit: Not Asked; Counseling Given: Not Answered Comments:Smokes a few cigars a day Alcohol [...] not to disclose 2021 10:19 AM EDT Last Filed Vital Signs Vital Sign Reading Time Taken Comments Blood Pressure 135/81 12/04/2023 8:58 AM EDT Pulse 75 12/04/2023 8:58 AM EDT Temperature 36.6 ??C (97.9 ??F) 12/04/2023 8:58 AM ED T Respiratory Rate 12 12/04/2023 8:58 AM EDT Oxygen Saturation 97% 12/04/2023 8:58 AM EDT Inhaled Oxygen Concentration - - Weight 121 kg (266 lb 4 oz) 12/04/2023 8:58 AM E DT Height 182.9 cm (6') 12/04/2023 8:58 AM EDT Body Mass Index 36.11 12/04/2023 8:58 AM EDT Plan of Treatment Upcoming Encounters Date Type Department Care Team (Late st Contact Info) Description 04/14/2024 10:15 AM EST Office Visit [address] [address] Erika Harding MD [address] [place] [phone] 04/20/2024 2:00 PM EST Clinical Support [address] [address] Padma Mujica, REMBERTO Health Maintenance Due Date Last Done Comments CT Colonography 1970 Colonoscopy 1970 Colorectal Cancer Screening 1970 Dental Prophylaxis 1970 FIT DNA/Cologuard 1970 FIT 1970 FOBT 1970 HIV Screening 1970 Lipid Panel 1970 Sigmoidoscopy 1970 Alcohol/Substance Use Screening 1982 Hepatitis C Screening 1988 DTaP/Tdap/Td Vaccines (1 - Tdap) 1989 Hepatitis A Vaccines (1 of 2 - Risk 2-dose series) 1989 Hepatitis B Vaccines (1 of 3 - 19+ 3-dose series) 1989 Pneumococcal Vaccine: 50+ Years (1 of 2 - PCV) 1989 Lung Cancer Screening 2020 Zoster Vaccines (1 of 2) 2020 Dental Oral Exam 09/10/2022 03/12/2022 Dental X-Ray: Bitewings 03/13/2023 03/12/19 23, 02/19/2022 COVID-19 Vaccine (1 - 2023-2 5 season) 2023 Influenza Vaccine (#1) 2023 Depression Screening 04/16/2024 04/17/2023, 04/17/2023 Tobacco Screening 12/03/2024 12/04/2023 Dental X-Ray: Full Mouth 03/13/2025 03/12/2022 SDOH Screening 03/31/2025 03/31/2024 RSV Patients and Patients Aged 60 years or older (1 - 1-dose 75+ series) 2045 HIB Vaccines Aged Out No longer eligi ble based on patient's age to complete this topic HPV Vaccines Aged Out No longer eligi ble based on patient's age to complete this topic IPV Vaccines Aged Out No longer eligi ble based on patient's age to complete this topic Meningococcal Vaccine Aged Out No kwame mihai eligible based on patient's age to complete this topic RSV under 20 months Aged Out No longe r eligible based on patient's age to complete this topic Rotavirus Vaccines Aged Out No longer eligible based on patient's age to complete this topic Procedures Procedure Name Priority Date/Time Associated Diagnosis Comments POCT MANUEL-14 URINE DRUG SCREEN Routine 01/27/2024 1:54 PM EST Chronic bilateral low back pain with right-sided sciatica INTRAORAL - COMPLETE SERIES OF RADIOGRAPHIC IMAGES Routine 03/12/2022 9:30 AM EST Periodontal disease COMPREHENSIVE ORAL EVALUATION - NEW OR ESTABLISHED PATIENT Routine 03/12/2022 9:30 AM EST Periodontal disease from Last 3 Months or Most Recently Relevant to Health Maintenance Results * POCT MANUEL-14 Urine Drug Screen (01/27/2024 1:54 PM EST) Oxycodone Screen, Urine Positive Urine Urine specimen obtained by clean catch procedure / Unknown 01/27/2024 1:54 PM EST Blu Sil Padma, RN - 01/27/2024 1:54 PM EST UTOX cup Lot#[id number] Exp. 11/10/25 Internal Pass Control Erika Harding MD POINT OF CARE TEST ENTER /EDIT ORDERABLES Final Result from Last 3 Months Insurance MEDICARE [facility] Care Teams Criminal Research Specialist Relationship Specialty Start Date End Date Erika Harding MD [address] [place] [id number] PCP - General Family Medicine 11/28/15
--- OUTSIDE RECORDS SUMMARY | 2024-04-08 10:14 | XMS_ITS | Encounter Summary ---
Author Organization [employer] Address [address] [facility] [address] [place] [address] Care Team Providers Care Health Program Manager Name Role Phone Erika Harding MD Primary Care Provider + Encounter Details Date Type Department Care Team (Late Contact Info) Description 06/13/2022 Orders Only [facility]ED[facility] [address] [place], [place] [phone] Yessi Wayne LPN Social History Tobacco Use Types Packs/Day Years [...] suspected to have Coronavirus/COVID-19? No / Unsure 05/14/2022 10:17 AM EDT documented as of this encounter Plan of Treatment Upcoming Encounters Date Type Department Care Team (Late Contact Info) Description 04/14/2024 10:15 AM EST Office Visit [facility] MED[facility]INE [address] [place], [place] [phone] Erika Harding MD [address] [place], [place] [phone] 04/20/2024 2:00 PM EST Clinical Support [facility] MED[facility] [address] [place] [address] Padma Mujica RN documented as of this encounter Visit Diagnoses Not on filedocumented in this encounter Care Teams Health Program Manager Relationship Specialty Start Date End Date Erika Harding MD [address] [place] [address] PCP - General Family Medicine 11/28/15 documented as of this encounter
[2024-04-08 11:11] LABS: Anion Gap 11 (12-20); Blood Urea Nitrogen 21 mg/dL (9-16); Calcium 9.1 mg/dL (8.4-10.2); Carbon Dioxide 28 mmol/L (22-29); Chloride 104 mmol/L (96-108); Cholesterol 151 mg/dL (<200); Estimated Glomerular Filt Rate > 60; Glucose Random 95 mg/dL (60-115); HDL Cholesterol 29 mg/dL (>40); LDL Cholesterol Calculated 97 mg/dL (<100); Potassium 3.9 mmol/L (3.3-5.1); Sodium 139 mmol/L (135-145); Triglycerides 125 mg/dL (<150)
[2024-04-08 11:27] LABS: TSH reflex Free T4 2.19 uIU/mL (0.32-4.0)
[2024-04-08 11:36] LABS: Reflex LDLD? No
== END 2024-04-08 09:40 | disposition home or self-care (01) ==
LOC: HO.LAB 09:39
PROVIDERS: Absent Provider Nurse Practitioner; PCP Internal Medicine; Visit Provider Internal Medicine
DX: I10 Essential (primary) hypertension (principal)
CPT/HCPCS: 36415; 80048; 80061; 84443

== ENCOUNTER 2024-04-20 16:27 | Outpatient (REF) | payer MEDICAID, SELFPAY ==
[2024-04-20 18:37] LABS: Oxycodone Screen Urine Not Detected (Not Detect)
--- OUTSIDE RECORDS SUMMARY | 2024-04-20 19:21 | XMS_ITS | Encounter Summary ---
Author Organization [employer] Address [address] [facility] [address] [place] [address] Care Team Providers Care Manager Council Name Role Phone Erika Harding MD Primary Care Provider + Reason for Visit * Reason Onset Date Comments Med Refill 03/29/2024 Encounter Details Date Type Department Care Team ([facility] st Contact Info) Description 03/29/2024 Refill [facility] MEDICINE [address] [place], [place] [phone] Erika Harding MD [address] [place] [address] Chronic bilateral low back pain with right-sided [...] immediate release tablet To be sent to: [facility]/pharmacy #[id number] [place], [place] - [address] documented in this encounter Plan of Treatment Upcoming Encounters Date Type Department Care Team (Late st Contact Info) Description 07/06/2024 9:00 AM EDT Clinical Support [facility] MED[facility]INE [address] [place] [id number] Padma Mujica RN documented as of this encounter Visit Diagnoses Diagnosis Chronic bilateral low back pain with right-sided sciatica documented in this encounter Care Teams Manager Council Relationship Specialty Start Date End Date Erika Harding MD [address] [place] [phone] PCP - General Family Medicine 11/28/15 documented as of this encounter
--- OUTSIDE RECORDS SUMMARY | 2024-04-20 19:21 | XMS_ITS | Encounter Summary ---
Author Organization [employer] Address [address] [facility] 7t [place] [address] Care Team Providers Care Electrical Technician Name Role Phone Erika Harding MD Primary Care Provider + Encounter Details Date Type Department Care Team (Latest Contact Info) Description 04/20/2024 Travel Social History Tobacco Use Types Packs/Day Years Used Date Smoking Tobacco: Former Cigarettes 0.5 40 Q uit: 03/28/2024 Cigars Passive Smoke Exposure: Current Smokeless Tobacco: Never Comments:Smokes a few cigars a day. Smoked 15 cig/d x 39y and 1.5cig x 1y, quit circa 02/2024 Alcohol Use Standard Drinks/Week Comments Never 0 (1 standard drink = 0.6 oz pur e alcohol) Depression Answer Date Recorded Patient Health Questionnaire-9 Score 0 04/14/2024 Patient Health Questionnaire-9 Score 0 04/14/2024 Last PHQ-9: Questionnaire Data Not on file 0 04/14/2024 Housing Stability Answer Date Recorded What is [...] Date Recorded Patient Health Questionnaire-2 Score 0 04/14/2024 Internet Access Answer Date Recorded Internet Access [...] Description 07/06/2024 9:00 AM EDT Clinical Support [facility] [address] [place] [phone] Padma Mujica RN documented as of this encounter Visit Diagnoses Not on filedocumented in this encounter Additional Health Concerns Assessment Noted Time PHQ-9 Depression Total Score: 0 04/14/19 25 9:45 AM EST documented as of this encounter Care Teams Electrical Technician Relationship Specialty Start Date End Date Erika Harding MD [address] [place] [id number] PCP - General Family Medicine 11/28/15 documented as of this encounter
--- OUTSIDE RECORDS SUMMARY | 2024-04-20 19:21 | XMS_ITS | Encounter Summary ---
Author Organization [employer] Address [address] [facility] 7t [place] [address] Care Team Providers Care Director Motion Picture Name Role Phone Erika Harding MD Primary Care Provider + Encounter Details Date Type Department Care Team (Latest Contact Info) Description 04/14/2024 Travel Social History Tobacco Use Types Packs/Day [...] is your housing situation today? I have gneo nicole 04/17/[address] you [...] Description 07/06/2024 9:00 AM EDT Clinical Support [facility] [address] [place] [phone] Padma Mujica RN documented as of this encounter Visit Diagnoses Not on filedocumented in this encounter Additional Health Concerns Assessment Noted Time PHQ-9 Depression Total Score: 0 04/14/19 25 9:45 AM EST documented as of this encounter Care Teams Director Motion Picture Relationship Specialty Start Date End Date Erika Harding MD [address] [place] [phone] PCP - General Family Medicine 11/28/15 documented as of this encounter
--- OUTSIDE RECORDS SUMMARY | 2024-04-20 19:21 | XMS_ITS | Encounter Summary ---
Author Organization [employer] Address [address] [facility] 7t [place] [address] Care Team Providers Care Regulatory Affairs Consultant Name Role Phone Erika Harding MD Primary Care Provider + Reason for Visit * Reason Onset Date Comments Lab Orders 04/08/2024 Encounter Details Date Type Department Care Team ([facility] st Contact Info) Description 04/08/2024 Telephone [facility] [address] [place], [place] [phone] Erika Harding MD [address] [place], [place] [phone] Lab Orders Social History Tobacco Use Types [...] 9:36 AM EST TC placed to patient [phone] in regards to below message. Patients answered however RN obtained permission from patient to speak to . informed BW orders have been faxed to [facility] [phone], confirmation page results. verbalized understanding. to f/u PRN. * Telephone Encounter - Dioni Kulkarni - 04/08/2024 9:03 AM EST Tc from pt spouse requesting that lab orders that were recently requested on last PCP appt be sent to [facility] because pt states that the lab from [facility] is more covinent to him. Spouse Contact: documented in this encounter Plan of Treatment Upcoming Encounters Date Type Department Care Team (Late st Contact Info) Description 07/06/2024 9:00 AM EDT Clinical Support [facility] [address] [place] [address] Padma Mujica RN documented as of this encounter Visit Diagnoses Not on filedocumented in this encounter Care Teams Regulatory Affairs Consultant Relationship Specialty Start Date End Date Erika Harding MD [address] [place] [address] PCP - General Family Medicine 11/28/15 documented as of this encounter
--- OUTSIDE RECORDS SUMMARY | 2024-04-20 19:21 | XMS_ITS | Encounter Summary ---
Author Organization [employer] Address [address] [facility] 7t [place] [address] Care Team Providers Care Auto Mechanics Instructor Name Role Phone Erika Harding MD Primary Care Provider + Encounter Details Date Type Department Care Team ([facility] st Contact Info) Description 06/25/2023 Orders Only [facility] [address] [place], [place] [phone] Erika Harding MD [address] [place] [address] Social History Tobacco Use Types Packs/Day Years [...] Description 07/06/2024 9:00 AM EDT Clinical Support [facility] [address] [place] [address] Padma Mujica RN documented as of this encounter Procedures Procedure Name Priority Date/Time Associated Diagnosis Comments PULMONARY FUNCTION TESTING Routine 06/07/2023 2:09 PM EDT documented in this encounter Results * Pulmonary function testing (06/07/2023 2:09 PM EDT) us Erika Harding MD PFT ORDERABLES Final Re sult documented in this encounter Visit Diagnoses Not on filedocumented in this encounter Care Teams Auto Mechanics Instructor Relationship Specialty Start Date End Date Erika Harding MD [address] [place] [address] PCP - General Family Medicine 11/28/15 documented as of this encounter
--- OUTSIDE RECORDS SUMMARY | 2024-04-20 19:21 | XMS_ITS | Encounter Summary ---
Author Organization [employer] Address [address] [facility] 7t [place] [address] Care Team Providers Care Telecommunications Support Name Role Phone Erika Harding MD Primary Care Provider + Reason for Visit * Reason Comments Med Refill Encounter Details Date Type Department Care Team (Late st Contact Info) Description 01/04/2024 Refill [facility] [address] [place], [place] [phone] Erika Harding MD [address] [place], [place] [phone] Social History Tobacco Use Types Packs/Day Years [...] Description 07/06/2024 9:00 AM EDT Clinical Support [facility] [address] [place] [address] Padma Mujica RN documented as of this encounter Visit Diagnoses Not on filedocumented in this encounter Care Teams Telecommunications Support Relationship Specialty Start Date End Date Erika Harding MD [address] [place] [address] PCP - General Family Medicine 11/28/15 documented as of this encounter
--- OUTSIDE RECORDS SUMMARY | 2024-04-20 19:21 | XMS_ITS | Encounter Summary ---
Author Organization [employer] Address [address] [place] [address] 7t [place] [address] Care Team Providers Care Hardware Manager Name Role Phone Erika Harding MD Primary Care Provider + Reason for Referral * Consultation (Routine) - Authorized Specialty Diagnoses / Procedures Referred By Arlet ibanez Referred To Contact Gastroenterology Diagnoses Screening for colorectal cancer Erika Harding MD [address] [place] [phone] Phone: tel: fax: [facility] [address] [place] [address] Phone: tel: fax: Referral ID Status Reason Start Date Expiration Date Visits Requested Visits Authorized [id number] Authorized Specialty Services Required 04/14/2024 04/14/2025 1 1 Encounter Details Date Type Department Care Team (Late st Contact Info) Description 04/14/2024 10:15 AM EST Office Visit [facility] [address] [place] [address] [phone] Erika Harding MD [address] [place] [phone] Primary hypertension (Primary Dx); Obesity, morbid (CMS/HCC); Cigarette nicotine dependence without complication; Screening for colorectal cancer; Screening for lung cancer; Class 2 severe obesity due to excess calories with serious comorbidity and body mass index (BMI) of 37.0 to 37.9 in adult (CMS/HCC); Dietary counseling; Exercise counseling Social History Tobacco Use Types Packs/Day Years Used Date Smoking Tobacco: Former Cigarettes 0.5 40 Q uit: 03/28/2024 Cigars Passive Smoke Exposure: Current Smokeless Tobacco: Never Tobacco Cessation:Counseling Given: Yes Comments:Smokes a few cigars a day. Smoked [...] Sign Reading Time Taken Comments Blood Pressure 130/80 04/14/2024 9:43 AM EST Pulse 65 04/14/2024 9:43 AM EST Temperature 35.9 ??C (96.6 ??F) 04/14/2024 9:43 AM ES T Respiratory Rate 21 04/14/2024 9:43 AM EST Oxygen Saturation 97% 04/14/2024 9:43 AM EST Inhaled Oxygen Concentration - - Weight 125 kg (276 lb) 04/14/2024 9:43 AM EST Height 182.9 cm (6') 04/14/2024 9:43 AM EST Body Mass Index 37.43 04/14/2024 9:43 AM EST documented in this encounter Progress Notes * Erika Harding MD - 04/14/2024 10:15 AM EST bSUBJECTIVE: Jeremy Melton is a 53 y.o. year old male who presents for follow up. Denies recent illness, injury, or hospitalization. Pt comes in for a fu on LBP. Labs on 04/08/24 showed normal lipids, BMP and TSH. Pt has reportedly quit smoking for about a month and a half, and has been using nicotine patches, but does not remember how many he uses a day. He has Albuterol and Arnuity inhaler and has been usingit. He has not made an appointment with pain clinic for back pain, as he says they never called him to make appointment. He has not been using Lyrica for about a month. He has not scheduled an appointment for colonoscopy yet. Acute Concerns: Pt had been having recent episode of cough, fever, and chills last week, but now has only residual cough. 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 Review of Systems Constitutional: Negative for fever. HENT: Negative for congestion, ear pain, rhinorrhea and sore throat. Eyes: Negative for pain and discharge. Respiratory: Positive for cough. Negative for shortness of breath. Cardiovascular: Negative for chest pain. Gastrointestinal: Negative for abdominal pain, constipation, diarrhea and nausea. Endocrine: Negative for polydipsia. Genitourinary: Negative for dysuria and frequency. Musculoskeletal: Positive for back pain. Negative for arthralgias and neck pain. Neurological: Negative for dizziness, numbness and headaches. Psychiatric/Behavioral: Negative for agitation. OBJECTIVE: Vitals: 04/14/24 0943 BP: 130/80 Pulse: 65 Resp: 21 Temp: 96.6 ??F (35.9 ??C) SpO2: 97% Physical Exam Constitutional: Appearance: Normal appearance. HENT: Right Ear: Tympanic membrane and ear canal normal. Left Ear: Tympanic membrane and ear canal normal. Mouth/Throat: Mouth: Mucous membranes are moist. Pharynx: No oropharyngeal exudate or posterior oropharyngeal erythema. Eyes: Pupils: Pupils are equal, round, and reactive to light. Cardiovascular: Rate and Rhythm: Normal rate and regular rhythm. Heart sounds: No murmur heard. Pulmonary: Breath sounds: Normal breath sounds. No wheezing. Abdominal: General: Bowel sounds are normal. Palpations: Abdomen is soft. Tenderness: There is no abdominal tenderness. Musculoskeletal: General: Normal range of motion. Cervical back: Normal range of motion. No tenderness. Lumbar back: Tenderness present. Skin: General: Skin is warm. Neurological: General: No focal deficit present. Mental Status: He is alert and oriented to person, place, and time. Psychiatric: Mood and Affect: Mood normal. Problem List Items Addressed This Visit Primary hypertension - Primary Controlled. Compliant w/meds Continue Lisinopril 30 mg + HCTZ 25 mg + Metoprolol. Counseled re low salt diet/increase moderate physical activity. Check home BP BIW and prn CP/PRETTY/SCHWAB Pt smokes. Obesity, morbid (CMS/HCC) Pt is undergoing evaluation for bariatric surgery. His medical conditions seem to be optimally controlled at this time, he will continue with all of his medications for now, especially HTN medications until they are adjusted once he starts losing weight. He can continue with all of his medications until day of surgery including inhalers and Oxycodone. He may need opioid management during post-op to avoid withdrawal (will continue Oxycodone 5 mg BID for now). Pt to fu with bariatric surgery. Nicotine dependence I congratulated him for quitting smoking, I gave him prescription for nicotine patch 7 mg x 1 month, then continue with nicotine gum prn. Screening for colorectal cancer Will refer for colonoscopy. Relevant Orders Referral to Gastroenterology Screening for lung cancer Smoke around 30 pack years , I will refer for low density chest CT scan. Class 2 severe obesity due to excess calories with serious comorbidity and body mass index (BMI) of37.0 to 37.9 in adult ([facility]) Undergoing evaluation for bariatric surgery Other Visit Diagnoses Dietary counseling Exercise counseling Follow Up: Current Outpatient Medications on File Prior to Visit Medication Sig Dispense Refill acetaminophen (Tylenol) 500 MG tablet Take 2 tablets (1,000 mg) by mouth every 6 (six) hours if needed for moderate pain or fever for up to 25 doses. 50 tablet 0 albuterol 108 (90 Base) MCG/ACT inhaler INHALE 2 PUFFS EVERY 4 HOURS IF NEEDED FOR WHEEZING. 18 g 5 Arnuity Ellipta 100 MCG/ACT inhaler INHALE 1 PUFF IN THE MORNING. RINSE MOUTH WITH WATER AFTER USE TO REDUCE AFTERTASTE AND INCIDENCE OF CANDIDIASIS. DO NOT SWALLOW. 30 each 11 hydrOXYzine HCl (Atarax) 25 MG tablet Take 1 tablet (25 mg) by mouth if needed each day for anxiety(for labs) for up to 10 doses. 10 tablet 0 lidocaine (Lidoderm) 5 % patch Apply 1 patch topically Once per day. Remove & discard patch within 12 hours or as directed by MD. 90 patch 3 lisinopril 10 MG tablet TAKE 1 TABLET BY MOUTH EVERY DAY (along with lisinopril/hydrochlorothiazide) 90 tablet 1 lisinopril-hydroCHLOROthiazide 20-25 MG tablet TAKE 1 TABLET BY MOUTH EVERY DAY 90 tablet 1 loratadine (Claritin) 10 MG tablet TAKE 1 TABLET BY MOUTH EVERY DAY IN THE MORNING 90 tablet 0 loteprednol (Lotemax) 0.5 % ophthalmic suspension Menthol, Topical Analgesic, (Icy Hot) 5 % patch Use 1 patch /d to affected area prn pain 30 patch 0 metoprolol succinate XL (Toprol-XL) 100 MG 24 hr tablet TAKE 1 TABLET BY MOUTH EVERY DAY IN THE MORNING 90 tablet 1 naloxone (Narcan) 4 mg/0.1 mL nasal spray Administer 1 spray (4 mg) into affected nostril(s) if needed for opioid reversal. May repeat every 2-3 minutes if needed, alternating nostrils, until medicalassistance becomes available. 2 each 3 nicotine polacrilex (Commit) 4 MG lozenge Take 1 tablet by mouth every 2 (two) hours. oxyCODONE (Roxicodone) 5 MG immediate release tablet Take 1 tablet (5 mg) by mouth every 12 (twelve) hours if needed for severe pain for up to 28 days. Do not start before March 30, 2024. 56 tablet 0 pregabalin (Lyrica) 50 MG capsule TAKE 1 CAPSULE BY MOUTH 3 TIMES DAILY. 90 capsule 0 tamsulosin (Flomax) 0.4 MG 24 hr capsule Take 1 capsule (0.4 mg) by mouth Once per day. 90 capsule 0 [DISCONTINUED] dexAMETHasone (Decadron) 4 MG tablet Take 1 tablet (4 mg) by mouth with breakfast and with evening meal for 6 days. 12 tablet 0 [DISCONTINUED] lisinopril-hydroCHLOROthiazide 20-25 MG tablet Take 1 tablet by mouth Once per day. 1 tab po/d (along with lisinopril 10mg) 90 tablet 1 [DISCONTINUED] nicotine (Nicoderm CQ) 14 MG/24HR patch Place 1 patch on the skin 1 (one) time each day at the same time. 42 patch 0 No current facility-administered medications on file prior to visit. IHelen, am serving as a scribe to document services personally performed by Dr. Erika Harding, based on the patient's response to questions by provider and provider's statements to me. documented in this encounter Miscellaneous Notes * Assessment & Plan Note - Erika Harding MD - 04/14/2024 2:37 PM EST Associated Problem(s): Class 2 severe obesity due to excess calories with serious comorbidity and body mass index (BMI) of 37.0 to 37.9 in adult ([facility]) Undergoing evaluation for bariatric surgery * Assessment & Plan Note - Helen Philippe - 04/14/2024 1:06 PM ESTAssociated Problem(s): Screening for lung cancer Smoke around 30 pack years , I will refer for low density chest CT scan. * Assessment & Plan Note - Helen Philippe - 04/14/2024 1:06 PM ESTAssociated Problem(s): Screening for colorectal cancer Will refer for colonoscopy. * Assessment & Plan Note - Helen Philippe - 04/14/2024 1:06 PM ESTAssociated Problem(s): Nicotine dependence I congratulated him for quitting smoking, I gave him prescription for nicotine patch 7 mg x 1 month, then continue with nicotine gum prn. * Assessment & Plan Note - Helen Philippe - 04/14/2024 1:05 PM ESTAssociated Problem(s): Obesity, morbid (CMS/HCC) Pt is undergoing evaluation for bariatric surgery. His medical conditions seem to be optimally controlled at this time, he will continue with all of his medications for now, especially HTN medications until they are adjusted once he starts losing weight. He can continue with all of his medications until day of surgery including inhalers and Oxycodone. He may need opioid management during post-op to avoid withdrawal (will continue Oxycodone 5 mg BID for now). Pt to fu with bariatric surgery. * Assessment & Plan Note - Helen Philippe - 04/14/2024 10:27 AM ESTAssociated Problem(s): Primary hypertension Controlled. Compliant w/meds Continue Lisinopril 30 mg + HCTZ 25 mg + Metoprolol. Counseled re low salt diet/increase moderate physical activity. Check home BP BIW and prn CP/PRETTY/SCHWAB Pt smokes. documented in this encounter Plan of Treatment Upcoming Encounters Date Type Department Care Team (Late st Contact Info) Description 07/06/2024 9:00 AM EDT Clinical Support [facility] [address] [place] [address] Padma Mujica RN Scheduled Referrals Name Type Priority Associated Diagnoses Order Schedule Referral to Gastroenterology Outpatient Referral Routine Screening for colorectal cancer Expected: 04/14/2024 (Approximate), Expires: 04/14/2025 documented as of this encounter Visit Diagnoses Diagnosis Primary hypertension- Primary Unspecified essential hypertension Obesity, morbid (CMS/HCC) Morbid obesity Cigarette nicotine dependence without complication Screening for colorectal cancer Screening for lung cancer Class 2 severe obesity due to excess calories with serious comorbidity and body mass index (BMI) of 37.0 to 37.9 in adult (CMS/HCC) Dietary counseling Dietary surveillance and counseling Exercise counseling documented in this encounter Additional Health Concerns Assessment Noted Time PHQ-9 Depression Total Score: 0 04/14/19 25 9:45 AM EST documented as of this encounter Care Teams Hardware Manager Relationship Specialty Start Date End Date Erika Harding MD [address] [place] [id number] PCP - General Family Medicine 11/28/15 documented as of this encounter
--- OUTSIDE RECORDS SUMMARY | 2024-04-20 19:21 | XMS_ITS | Clinical Summary ---
Author Organization [employer] Address [address] [facility] 7t [place] [address] Care Team Providers Care Developmental Training Counselor Name Role Phone Erika Harding MD Primary [...] by mouth Once per day. 90 capsule 024 Active hydrOXYzine HCl (Atarax) 25 MG tabletIndications :Localized superficial swelling of skin Take 1 tablet (25 mg) by mouth if needed each day for anxiety (for labs) for up to 10 doses. 10 tablet 024 Active metoprolol succinate XL (Toprol-XL) 100 MG 24 hr tabletIndications :HTN (hypertension), benign TAKE 1 TABLET BY MOUTH EVERY DAY IN THE MORNING 90 tablet 1 024 Active lisinopril-hydroC HLOROthiazide 20-25 MG tablet TAKE 1 TABLET BY MOUTH EVERY DAY 90 tablet 1 024 Active lisinopril 10 MG tabletIndications :Essential hypertension TAKE 1 TABLET BY MOUTH EVERY DAY (along with lisinopril/hyd rochlorothiazi de) 90 tablet 1 024 Active Menthol, Topical Analgesic, (Icy Hot) 5 % patch Use 1 patch /d to affected area prn pain 30 patch 024 Active lidocaine (Lidoderm) 5 % patchIndications: Spinal stenosis of lumbar region without neurogenic claudication Apply 1 patch topically Once per day. Remove & discard patch within 12 hours or as directed by MD. 90 patch 3 024 2024 Active albuterol 108 (90 Base) MCG/ACT inhaler INHALE 2 PUFFS EVERY 4 HOURS IF NEEDED FOR WHEEZING. 18 g 5 024 Active Arnuity Ellipta 100 MCG/ACT inhalerIndication s:Moderate [...] 30, 2024. 56 tablet 025 2024 Active nicotine (Nicoderm CQ) 7 MG/24HR patch Place 1 patch on the skin 1 (one) time each day at the same time. 30 patch 025 2024 Active dexAMETHasone (Decadron) 4 MG tablet Take 1 tablet (4 mg) by mouth with breakfast and with evening meal for 6 days. 12 tablet 024 2024 Discontinued(T herapy completed) lisinopril-hydroC HLOROthiazide 20-25 MG tablet Take 1 tablet by mouth Once per day. 1 tab po/d (along with lisinopril 10mg) 90 tablet 1 024 2024 Discontinued(D uplicate order (will not trigger notification to Pharmacy)) nicotine (Nicoderm CQ) 14 MG/24HR patch Place 1 patch on the skin 1 (one) time each day at the same time. 42 patch 024 2024 Discontinued(T herapy completed) oxyCODONE (Roxicodone) 5 MG immediate release tabletIndications :Chronic bilateral low back pain with right-sided sciatica Take 1 tablet (5 mg) by mouth every 12 (twelve) hours if needed for severe pain for up to 28 days. Do not start before March 02, 2024. 56 tablet 025 2024 Discontinued(R eorder (will not trigger notification to Pharmacy)) Active Problems Problem Noted Date Diagnosed Date Screening for colorectal cancer 04/14/2024 Assessment & Plan (04/14/2024 1:06 PM EST): Will refer for colonoscopy. Screening for lung cancer 04/14/2024 Assessment & Plan (04/14/2024 2:58 PM EST): Smoke around 30 pack years , I will refer for low density chest CT scan. Class 2 severe obesity due t o excess calories with serious comorbidity and body mass index (BMI) of 37.0 to 37.9 in adult 04/14/2024 Assessment & Plan (04/14/2024 2:37 PM EST): Undergoing evaluation for bariatric surgery Obesity, morbid 12/04/2023 Assessment & Plan (04/14/2024 1:05 PM EST): Pt is undergoing evaluation for bariatric surgery. [...] now). Pt to fu with bariatric surgery. Assessment & Plan (12/04/2023 1:16 PM EDT): Discussed re weight reduction options including exercise, life style modifications, diet and referral to drug and alcohol treatment specialist. Recommended to decrease soda and sugary [...] use after work and follow up with GIS MAPPING TECHNICIAN clinic. Advised to use Tylenol Q6hrs in [...] many years. We discussed about short and senior living options, he's aware that opiates may not [...] ketotifen eye dfrops and loratidine FU with research professor. Moderate persistent asthma without complication 04/09/2022 Assessment [...] 04/04/2022 Nicotine dependence 04/04/2022 Assessment & Plan (04/14/2024 1:06 PM EST): I congratulated him for quitting smoking, I gave him prescription for nicotine patch 7 mg x 1 month, then continue with nicotine gum prn. Assessment & Plan (12/04/2023 1:16 PM EDT): Agreed to start nicotine patch 14 mg. Pain, joint, knee, right 04/04/2022 Palpitations 04/04/2022 Skin lesion 04/04/2022 Periodontal disease 03/27/2022 Viral upper respiratory tract infection 03/09/19 18 Primary hypertension 12/06/2015 Assessment & Plan (04/14/2024 10:27 AM EST): Controlled. Compliant w/meds Continue Lisinopril 30 mg + HCTZ 25 mg + Metoprolol. Counseled re low salt diet/increase moderate physical activity. Check home BP BIW and prn CP/PRETTY/SCHWAB Pt smokes. Assessment & Plan (12/04/2023 9:42 AM EDT): [...] spine/foraminal stenosis: MRI L-spine on 07/01/23 at [facility] Assessment & Plan (07/01/2023 11:50 AM EDT): [...] vigilance U-Tox and he will fu with GIS MAPPING TECHNICIAN nurse for new intake He has been [...] Encounters Date Type Department Care Team Description 04/20/2024 2:00 PM EST Clinical Support [address] [address] Padma Mujica RN Chronic bilateral low back pain with right-sided sciatica (Primary Dx); Long-term current use of opiate analgesic 04/20/[address] [address] Padma Mujica RN GIS MAPPING TECHNICIAN Renewal today; Oxycodone Count discrepancy; UTOX Neg OXY 04/20/2024 Travel 04/14/2024 10:15 AM EST Office Visit [address] [address] Erika Harding MD Primary hypertension (Primary Dx); Obesity, morbid (CMS/HCC); Cigarette nicotine dependence without complication; Screening for colorectal cancer; Screening for lung cancer; Class 2 severe obesity due to excess calories with serious comorbidity and body mass index (BMI) of 37.0 to 37.9 in adult (CMS/HCC); Dietary counseling; Exercise counseling 04/14/2024 Travel 04/11/[address] [address] Erika Harding MD Chart prep 04/11/[address] [address] Erika Harding MD stable lab letter 04/08/[address] [address] Erika Harding MD Lab Orders 03/31/2024 Patient Outreach [facility] [address] [place] [address] Erika Harding MD Pre-visit Planning (SDOH screening negative and tobacco screening negative) 03/29/2024 Refill [facility] [address] [place] [address] Erika Harding MD Chronic bilateral low back pain with right-sided sciatica 03/02/2024 Refill [facility] [address] [place] [address] Erika Harding MD 03/01/2024 Refill [facility] [address] [place] [address] Erika Harding MD Moderate persistent asthma without complication 02/29/2024 Telephone [facility] [address] [place] [phone] Erika Harding MD Med Refill 02/29/2024 Refill [facility] [address] [place] [address] Erika Harding MD Chronic bilateral low back pain with right-sided sciatica 02/18/2024 Telephone [facility] [address] [place] [address] Erika Harding MD April02/02/2024 Refill [facility] [address] [place] [phone] Erika Harding MD Chronic bilateral low back pain with right-sided sciatica 01/27/2024 2:00 PM EST Clinical Support [facility] [address] [place] [phone] Padma Mujica, patient attendant bilateral low back pain with right-sided sciatica (Primary Dx) 01/27/2024 Telephone [facility] [address] [place] [phone] Padma Mujica, RN Oxycodone count 01/27/2024 Travel 01/27/2024 Telephone [facility] [address] [place] [phone] Padma Mujica, REMBERTO Recommend GIS MAPPING TECHNICIAN Tier 2 from Last 3 Months Social [...] Mass Index 37.43 04/14/2024 9:43 AM EST Plan of Treatment Upcoming Encounters Date Type Department Care Team (Late st Contact Info) Description 07/06/2024 9:00 AM EDT Clinical Support [address] [address] Padma Mujica, RN Health Maintenance Due Date Last Done Comments CT Colonography 1970 Colonoscopy 1970 Colorectal Cancer Screening 1970 Dental Prophylaxis 1970 FIT DNA/Cologuard 1970 FIT 1970 FOBT 1970 HIV Screening 1970 Sigmoidoscopy 1970 Hepatitis C Screening 1988 DTaP/Tdap/Td Vaccines (1 [...] 5 season) 2023 Influenza Vaccine (#1) 2023 Dental X-Ray: Full Mouth 03/13/2025 03/12/2022 SDOH Screening 03/31/2025 03/31/2024 Alcohol/Substance Use Screening 04/14/2025 04/14/2024 Depression Screening 04/14/2025 04/14/2024, 04/14/2024 Tobacco Screening 04/14/2025 04/14/2024 Lipid Panel 04/08/2029 04/08/2024 RSV Patients and Patients Aged 60 years [...] Comments POCT MANUEL-14 URINE DRUG SCREEN Routine 04/20/2024 2:03 PM EST Chronic bilateral low back pain with right-sided sciatica OXYCODONE SCREEN, URINE Routine 04/20/2024 1:45 PM EST Chronic bilateral low back pain with right-sided sciatica TSH W/REFLEX TO FT4 Routine 04/08/2024 9 :55 AM EST Essential hypertension LIPID PANEL WITH REFLEX TO DIRECT LDL Routine 04/08/2024 9:55 AM EST Essential hypertension BASIC METABOLIC PANEL Routine 04/08/2024 9:55 AM EST Essential hypertension POCT MANUEL-14 URINE DRUG SCREEN Routine 01/27/2024 1:54 PM EST Chronic bilateral low back pain with right-sided sciatica INTRAORAL - COMPLETE SERIES OF RADIOGRAPHIC IMAGES Routine 03/12/2022 9:30 AM EST Periodontal disease COMPREHENSIVE ORAL EVALUATION - NEW OR ESTABLISHED PATIENT Routine 03/12/2022 9:30 AM EST Periodontal disease from Last 3 Months or Most Recently Relevant to Health Maintenance Results * (ABNORMAL) POCT MANUEL-14 Urine Drug Screen (04/20/2024 2:03 PM EST) Only the most recent of2 resultswithin the time period is included. Oxycodone Screen, Urine Negative Urine Urine specimen obtained by clean catch procedure / Unknown 04/20/2024 2:03 PM EST Narrative Padma Mujica RN - 04/20/2024 2:03 PM EST UTOX cup Lot#[id number] Exp. 10/05/25 Internal Pass Control UTOX Negative for all substances. Erika Harding MD POINT OF CARE TEST ENTER /EDIT ORDERABLES Final Result * Oxycodone Screen, Urine (04/20/2024 1:45 PM EST) Pathologist [facility] Oxycodone Urine Screen Not Detected Not Detect ng/mL [facility] Comment:Oxycodone cut-off is 100 ng/mL.Positive results are unconfirmed and should not be used fornon-medical purposes. Urine 04/20/2024 1:45 PM EST 04/20/2024 4:28 PM EST Erika Harding MD LAB URINE ORDERABLES Fin al Result Performing Organization Address City/[facility]/ZIP Co de Phone Number [facility] [address] [place] [phone] * TSH with Reflex to Free T4 (04/08/2024 9:55 AM EST) TSH reflex Free T4 2.19 0.32 - 4.0 uIU/mL [facility] Blood 04/08/2024 9:55 AM EST 04/08/2024 9:55 AM EST Erika Harding MD LAB BLOOD ORDERABLES Fin al Result Performing Organization Address City/[facility] Co de Phone Number [facility] [address] [place] [phone] * (ABNORMAL) Lipid Panel with Reflex to Direct LDL (04/08/2024 9:55 AM EST) Triglycerides 125 <150 mg/dL [facility] Comment:Desirable Triglyceri de: less than 150 mg/dLBorderline High Triglyceride 150-199 mg/dLHigh Triglyceride: 200-499 mg/dLVery High Triglyceride: greater than or equal to 5OO mg/dL Cholesterol 151 <200 mg/dL [facility] Comment:Desirable Cholestero l: less than 200 mg/dLBorderline High Cholesterol: 200-239 mg/dLHigh Cholesterol: greater than 239 mg/dL LDL Cholesterol Calculated 97 <100 mg/dL [facility] Comment:Desirable LDL: less than 100 mg/dLNear Optimal/Above Optimal LDL: 110- 129 mg/dLBorderline High LDL: 130-159 mg/dLHigh LDL: 160-189 mg/dLVery High LDL: greater than or equal to 190 mg/dL HDL Cholesterol 29(L) >40 mg/dL [facility] Comment:Desirable HDL: great er than 40 mg/dL Note: This HDL assay may give artificially low results in patients with liver disease. Blood 04/08/2024 9:55 AM EST 04/08/2024 9:55 AM EST us Erika Harding MD LAB BLOOD ORDERABLES Fin al Result [facility] [address] [place] [address] [phone] * (ABNORMAL) Basic Metabolic Panel (04/08/2024 9:55 AM EST) Sodium 139 135 - 145 mmol/L [facility] Potassium 3.9 3.3 - 5.1 mmol/L [facility] Chloride 104 96 - 108 mmol/L [facility] Carbon Dioxide 28 22 - 29 mmol/L [facility] Anion Gap 11(L) 12 - 20 [facility] Urea Nitrogen (BUN) 21(H) 9 - 16 mg/dL [facility] Creatinine, Serum 0.74 0.5 - 1.4 mg/dL [facility] Estimated Glomerular Filt Rate >60 [facility] Comment:Chronic Kidney Disea se: Estimated GFR < 60 mL/min/[id number] Kidney Disease: Estimated GFR < 15 mL/min/1.73m2 Glucose 95 60 - 115 mg/dL [facility] Calcium 9.1 8.4 - 10.2 mg/dL [facility] Blood Venous blood specimen / Unknown 04/08/2024 9:55 AM EST 04/08/2024 9:55 AM EST us Erika Harding MD LAB BLOOD ORDERABLES Fin al Result Performing Organization Address City/State/[facility] Co de Phone Number [facility] [address] [place] [phone] [phone] from Last [address] [place] [address] [place] [phone] [facility] Care Teams Developmental Training Counselor Relationship Specialty Start Date End Date Erika Harding MD [address] [place] [phone] PCP - General Family Medicine 11/28/15
--- OUTSIDE RECORDS SUMMARY | 2024-04-20 19:21 | XMS_ITS | Encounter Summary ---
Author Organization [employer] Address [address] [facility] 7t [place] [address] Care Team Providers Care Clinical Quality Manager Name Role Phone Erika Harding MD Primary Care Provider + Reason for Visit * Reason Comments SHOWROOM CONSULTANT Renewal SHOWROOM CONSULTANT Renewal Encounter Details Date Type Department Care Team (Latest Contact Info) Description 04/20/2024 2:00 PM EST Clinical Support [facility] [address] [place] [address] Padma Mujica RN Chronic bilateral low back pain with right-sided sciatica (Primary Dx); Long-term current use of opiate analgesic Social History Tobacco Use Types Packs/Day Years [...] as of this encounter Progress Notes * Padma Mujica RN - 04/20/2024 2:00 PM EST S: Pt here for SHOWROOM CONSULTANT Renewal Visit. Prescribed Oxycodone 5mg Q12hr PRN. States he has been taking 2-3doses a day, last dose taken was this morning. States he quit smoking cigarettes over a month ago, his daughter was his motivation to stop. CONGRATULATED!! Denies ETOH use, Illicit drug use and marijuana use. Currently rates his pain a 7 and states medication is 75% effective at alleviating his pain. Current pain sites are his lower back and down his right leg. He said he will be starting to go to [facility]. Pt is being evaluated for bariatric surgery as well. O: SHOWROOM CONSULTANT Tier 2. Pt currently prescribed Oxycodone 5mg Q12hr PRN. MANAGEMENT TRAINER verified today. Rx last filled on 03/31/24. Pill count performed. Pt has 5 pills at this time, 15 at least expected. Reviewed his Oxycodone order. Reminded patient he is only supposed to take 1 pill every 12 hours. Advised him to speak with his PCP prior to taking his medication differently. Pt stated he has taken an extra dose a few times when his pain is bad. Pt aware his oxycodone count is off by 10 pills. UTOX completed. Negative for all substances: AMP, BAR, BUP, BZO, VENTURA, FTY, MDMA, MET, MOP, MTD, OXY, PCP, TCA, THC. UTOX not as expected. Reviewed results with patient. Explained I would send urine out for OXY confirmation and I would call him if his results are abnormal. Pt stated he understood. BPI updated, see scanned documents from this date. Pain severity score of 8.3, activity interference score of 7.3. Previous BPI completed 11/26/23 with pain severity score of 6.3, activity interference score of 5.6. Narcan medication reviewed, how it's administered and when it's used. Pt stated he understood and has it available. Will update PCP with BPI scoring, oxycodone count and UTOX results. Last PCP visit was 04/14/24. A: SHOWROOM CONSULTANT Contract Renewal Visit: Chronic Opioid use related to pain. P: SHOWROOM CONSULTANT contract reviewed and signed, Pt provided copy. Pt to continue taking medication only as prescribed; Next SHOWROOM CONSULTANT RV appointment scheduled for 07/06/24 @ 9am F/U sooner PRN. Appointment reminder given. Pt verbalized understanding and agreed to plan. documented in this encounter Plan of Treatment Upcoming Encounters Date Type Department Care Team (Late st Contact Info) Description 07/06/2024 9:00 AM EDT Clinical Support [address] [address] Padma Mujica, RN documented as of this encounter Procedures Procedure Name Priority Date/Time Associated Diagnosis Comments POCT MANUEL-14 URINE DRUG SCREEN Routine 04/20/2024 2:03 PM EST Chronic bilateral low back pain with right-sided sciatica OXYCODONE SCREEN, URINE Routine 04/20/2024 1:45 PM EST Chronic bilateral low back pain with right-sided sciatica documented in this encounter Results * (ABNORMAL) POCT MANUEL-14 Urine Drug Screen (04/20/2024 2:03 PM EST) Oxycodone Screen, Urine Negative Urine Urine specimen obtained by clean catch procedure / Unknown 04/20/2024 2:03 PM EST Narrative Padma Mujica RN - 04/20/2024 2:03 PM EST UTOX cup Lot#[id number] Exp. 10/05/25 Internal Pass Control UTOX Negative for all substances. Erika Harding MD POINT OF CARE TEST ENTER /EDIT ORDERABLES Final Result * Oxycodone Screen, Urine (04/20/2024 1:45 PM EST) Oxycodone Urine Screen Not Detected Not Detect ng/mL [facility] Comment:Oxycodone cut-off is 100 ng/mL.Positive results are unconfirmed and should not be used fornon-medical purposes. Urine 04/20/2024 1:45 PM EST 04/20/2024 4:28 PM EST us Erika Harding MD LAB URINE ORDERABLES Fin al Result Performing Organization Address City/State/[facility] Co de Phone Number [facility] [address] [place] [phone] documented in this encounter Visit Diagnoses Diagnosis Chronic bilateral low back pain with right-sided sciatica- Primary Long-term current use of opiate analgesic Encounter for long-term (current) use of other medications documented in this encounter Additional Health Concerns Assessment Noted Time PHQ-9 Depression Total Score: 0 04/14/19 25 9:45 AM EST documented as of this encounter Care Teams Clinical Quality Manager Relationship Specialty Start Date End Date Erika Harding MD [address] [place] [phone] PCP - General Family Medicine 11/28/15 documented as of this encounter
--- OUTSIDE RECORDS SUMMARY | 2024-04-20 19:21 | XMS_ITS | Encounter Summary ---
Author Organization [employer] Address [address] [facility] 7t [place] [address] Care Team Providers Care Corn Crop Supervisor Name Role Phone Erika Harding MD Primary Care Provider + Reason for Visit * Reason Onset Date Comments stable lab letter 04/11/2024 Encounter Details Date Type Department Care Team ([facility] st Contact Info) Description 04/11/2024 Telephone [facility] [address] [place], [place] [phone] Erika Harding MD [address] [place], [place] [phone] stable lab letter Social History Tobacco Use Types Packs/Day Years [...] encounter Miscellaneous Notes * Telephone Encounter - Ladonna Gaylees - 04/11/2024 9:57 AM EST Mailed stable lab letter. documented in this encounter Plan of Treatment Upcoming Encounters Date Type Department Care Team (Late st Contact Info) Description 07/06/2024 9:00 AM EDT Clinical Support [facility] [address] [place] [address] Padma Mujica RN documented as of this encounter Visit Diagnoses Not on filedocumented in this encounter Care Teams Corn Crop Supervisor Relationship Specialty Start Date End Date Erika Harding MD [address] [place] [address] PCP - General Family Medicine 11/28/15 documented as of this encounter
--- OUTSIDE RECORDS SUMMARY | 2024-04-20 19:21 | XMS_ITS | Encounter Summary ---
Author Organization [email or web address] Address [address] [facility] [address] [place] [address] Care Team Providers Care Student Support Services Director Name Role Phone Erika Harding MD Primary Care Provider + Reason for Visit * Reason Onset Date Comments Chart prep 04/11/2024 Encounter Details Date Type Department Care Team ([facility] st Contact Info) Description 04/11/2024 Telephone [facility] [address] [place], [place] [phone] Erika Harding MD [address] [place], [place] [phone] Chart prep Social History Tobacco Use Types Packs/Day Years [...] encounter Miscellaneous Notes * Telephone Encounter - Rina Escoto [place] - 04/11/2024 10:04 AM EST Chart Prep Labs: done Images: not done Vaccines due: yes Referrals: pending appt Screenings: colonoscopy Overdue care gaps: PHQ-9 documented in this encounter Plan of Treatment Upcoming Encounters Date Type Department Care Team (Late st Contact Info) Description 07/06/2024 9:00 AM EDT Clinical Support [facility] [address] [place] [address] Padma Mujica, REMBERTO documented as of this encounter Visit Diagnoses Not on filedocumented in this encounter Care Teams Student Support Services Director Relationship Specialty Start Date End Date Erika Harding MD [address] [place] [address] PCP - General Family Medicine 11/28/15 documented as of this encounter
--- OUTSIDE RECORDS SUMMARY | 2024-04-20 19:21 | XMS_ITS | Encounter Summary ---
Author Organization [employer] Address [address] [facility] 7t [place] [address] Care Team Providers Care Superintendent Local Name Role Phone Erika Harding MD Primary Care Provider + Reason for Visit * Reason Onset Date Comments Call Back Request 12/18/2022 Encounter Details Date Type Department Care Team ([facility] Contact Info) Description 12/18/2022 Telephone [facility] [address] [place], [place] [phone] Erika Harding MD [address] [place], [place] [phone] Call Back Request Social History Tobacco Use [...] Description 07/06/2024 9:00 AM EDT Clinical Support [facility] [address] [place] [address] Padma Mujica, REMBERTO documented as of this encounter Visit Diagnoses Not on filedocumented in this encounter Care Teams Superintendent Local Relationship Specialty Start Date End Date Erika Harding MD [address] [place] [address] PCP - General Family Medicine 11/28/15 documented as of this encounter
--- OUTSIDE RECORDS SUMMARY | 2024-04-20 19:21 | XMS_ITS | Encounter Summary ---
Author Organization [employer] Address [address] [facility] 7t [place] [address] Care Team Providers Care Sales Representative Education Courses Name Role Phone Erika Harding MD Primary Care Provider + Encounter Details Date Type Department Care Team (Late Contact Info) Description 03/27/2022 Abstract [facility] [address] [place], [place] [phone] Jeremy Morse DDS [address] [place], [place] [phone] Social History Tobacco Use Types Packs/Day Years [...] Department Care Team (Late Contact Info) Description 07/06/2024 9:00 AM EDT Clinical Support [facility] [address] [place] [address] Padma Mujica RN documented as of this encounter Visit Diagnoses Not on filedocumented in this encounter Care Teams Sales Representative Education Courses Relationship Specialty Start Date End Date Erika Harding MD [address] [place] [address] PCP - General Family Medicine 11/28/15 documented as of this encounter
--- OUTSIDE RECORDS SUMMARY | 2024-04-20 19:21 | XMS_ITS | Encounter Summary ---
Author Organization [email or web address] Address [address] [facility] 7t [place] [address] Care Team Providers Care Marking Clerk Name Role Phone Erika Harding MD Primary Care Provider + Encounter Details Date Type Department Care Team ([facility] Contact Info) Description 06/13/2022 Orders Only [facility] CHC MED & PEDS [address] [place] [address] Yessi Wayne LPN Social History Tobacco Use [...] 07/06/2024 9:00 AM EDT Clinical Support [facility] MEDICINE [address] [place] [address] Padma Mujica RN documented as of this encounter Visit Diagnoses Not on filedocumented in this encounter Care Teams Marking Clerk Relationship Specialty Start Date End Date Erika Harding MD 230 [place] [address] PCP - General Family Medicine 11/28/15 documented as of this encounter
--- OUTSIDE RECORDS SUMMARY | 2024-04-20 19:21 | XMS_ITS | Encounter Summary ---
Author Organization [employer] Address 75 [facility] 7t [place] [address] Care Team Providers Care Inpatient Care Manager Rn Name Role Phone Erika Harding MD Primary Care Provider + Reason for Visit * Reason Onset Date Comments Med Refill 02/26/2022 Encounter Details Date Type Department Care Team ([facility] st Contact Info) Description 02/26/2022 Telephone [facility] MEDICINE [address] [place], [place] [phone] Erika Harding MD 230 [place], [place] [phone] Med Refill Social History Tobacco Use Types [...] PM EST Both medications were sent to [facility] # [id number] * Telephone Encounter - Lew Dawn - 02/26/2022 1:44 PM EST Tc from pt requesting med refill Lisinopril 10 mg ) ( metoprolol xl 100 mg ) documented in this encounter Plan of Treatment Upcoming Encounters Date Type Department Care Team (Late st Contact Info) Description 07/06/2024 9:00 AM EDT Clinical Support [facility] MEDICINE [address] [place] [address] Padma Mujica, REMBERTO documented as of this encounter Visit Diagnoses Not on filedocumented in this encounter Care Teams Inpatient Care Manager Rn Relationship Specialty Start Date End Date Erika Harding MD [address] [place] [address] PCP - General Family Medicine 11/28/15 documented as of this encounter
--- OUTSIDE RECORDS SUMMARY | 2024-04-20 19:21 | XMS_ITS | Encounter Summary ---
Author Organization [facility] Address [address] [place] [address] Care Team Providers Care Bird Sitter Name Role Phone Giovani Tinoco MD Primary Care Provider [phone] Reason for Visit * Reason Comments Obesity Encounter Details Date Type Department Care Team ([facility] st Contact Info) Description 03/25/2024 9:00 AM EST Nutrition Bariatric Surgery - [place] [address] [phone] [address] [address] Class 2 obesity with body mass index [...] computadora. Puede ir a [facility] en [address], [address], cuando est?? listo. Abren a las 7:30 am. Tambi??n puede ir a otro laboratorio de ralali/Supai que puede estar m??s convenientemente ubicado. No se permite comida/bebida despu??s de la medianoche, por favor, estos son laboratorios en ayunas. ??NADA DE CHICLES, CARAMELOS, MENTA, TUMS O AGUA PURVI ZO HORA ANTES! Evaluaci??n psicol??gica: Tienes dos opciones para tu evaluaci??n psicol??delaney Jauregui Cameron [phone] [facility] [phone] Ambos est??n haciendo visitas remotas. Llame a [...] de atenci??n primaria *no* est?? dentro de ralali, p??dales que env??en por fax ybarra nota de la oficina al [phone]. Lawrence de apoyo (cuestionario): complete el cuestionario [...] carrots, seafood salad or lentil soup Snacks: belarusian yogurt and fruit Beverages: less soda, more [...] (>50% of the time spent) in direct sstw-hp-bzie consultation for counseling, reviewing medical record and/or coordinating the plan as described above. Judy Garner RD NUTRITION SERVICES Cosigned by Jennifer Bañuelos MD at 03/25/2024 10:35 AM EST documented in this encounter Plan of Treatment Upcoming Encounters Date Type Department Care Team (Late st Contact Info) Description 04/22/2024 9:00 AM EST Nutrition Bariatric Surgery - [place] [address] [phone] 175 [facility] [address] [place] [address] documented as of this encounter Visit Diagnoses Diagnosis Class 2 obesity with body mass index (BMI) of 37.0 to 37.9 in adult, unspecified obesity type, unspecified whether serious comorbidity present- Primary documented in this encounter Care Teams Bird Sitter Relationship Specialty Start Date End Date Giovani Tinoco MD [address] [place] [address] PCP - General Internal Medicine 12/28/23 documented as of this encounter
--- OUTSIDE RECORDS SUMMARY | 2024-04-20 19:21 | XMS_ITS | Encounter Summary ---
Author Organization [employer] Address 75 [facility] 7t [place] [address] Care Team Providers Care Circular Knitter Name Role Phone Erika Harding MD Primary Care Provider + Encounter Details Date Type Department Care Team (Late Contact Info) Description 04/18/2022 Abstract [facility] ADULT DENTAL [address] [place], [place] [phone] Heladio Alberts, SANYA [address] [place], [place] [phone] Social History Tobacco Use Types Packs/Day Years [...] Description 07/06/2024 9:00 AM EDT Clinical Support [facility] MEDICINE [address] [place] [address] Sil, Padma, RN documented as of this encounter Visit Diagnoses Not on filedocumented in this encounter Care Teams Circular Knitter Relationship Specialty Start Date End Date Erika Harding MD [address] [place] [address] PCP - General Family Medicine 11/28/15 documented as of this encounter
--- OUTSIDE RECORDS SUMMARY | 2024-04-20 19:21 | XMS_ITS | Clinical Summary ---
Author Organization 175 [facility] Address 175 [place] [address] Phone Care Team Providers Care Call Taker Name Role Phone Giovani Tinoco MD Primary Care Provider [phone] Allergies Active Allergy Reactions Criticality Noted Date [...] 03/25/2024 9:00 AM EST Nutrition Bariatric Surgery [address] [phone] Class 2 obesity with body mass index (BMI) of 37.0 to 37.9 in adult, unspecified obesity type, unspecified whether serious comorbidity present (Primary Dx) 02/24/2024 Telephone Bariatric Surgery [address] [phone] Jennifer Bañuelos MD 02/23/2024 8:30 AM EST Nutrition Bariatric Surgery [address] [phone] Class 2 obesity with body mass index (BMI) of 37.0 to 37.9 in adult, unspecified obesity type, unspecified whether serious comorbidity present (Primary Dx) 02/19/2024 8:30 AM EST Office Visit Bariatric Surgery [address] [phone] Fiona Shea MD Obesity (BMI 30-39.9) (Primary Dx); Gastroesophageal reflux disease, unspecified whether esophagitis present; Sleep apnea, unspecified type from Last 3 Months Surgical History Surgery Date Site/Laterality Comments APPENDECTOMY -1989 PROCEDURE: [place] APPENDEC INDICATED PURPOSE OTH MAJOR PX NOT [...] 9:00 AM EST Nutrition Bariatric Surgery - [place] [address] [phone] Judy Garner, RD 175 [facility] 120 [place], [place] [phone] Health Maintenance Due Date Last Done Comments [...] Insurance MEDICARE MEDICAID - [place] Care Teams Call Taker Relationship Specialty Start Date End Date Giovani Tinoco MD [address] [place] [address] PCP - General Internal Medicine 12/28/23
--- OUTSIDE RECORDS SUMMARY | 2024-04-20 19:21 | XMS_ITS | Encounter Summary ---
Author Organization [employer] Address 75 [facility] 7t [place] [address] Care Team Providers Care Agricultural Equipment Operator Name Role Phone Erika Harding MD Primary Care Provider + Reason for Visit * Reason Onset Date Comments MACHINE MILKER Renewal today 04/20/2024 Oxycodone Count discrepancy 04/20/2024 UTOX Neg OXY 04/20/2024 Encounter Details Date Type Department Care Team (Late st Contact Info) Description 04/20/2024 Telephone [facility] MEDICINE 230 [place] [address] Padma Mujica, RN MACHINE MILKER Renewal today; Oxycodone Count discrepancy; UTOX Neg OXY Social History Tobacco Use Types Packs/Day Years [...] encounter Miscellaneous Notes * Telephone Encounter - Padma Mujica RN - 04/20/2024 2:12 PM EST Pt had MACHINE MILKER Renewal appt today UTOX was negative OXY, sent out for confirmation. Pt had 5 oxycodone pills remaining, anticipated he wouls have 15. States he has been taking a 3rd dose when needed. Previous count 01/27/24 he had 6 pills, anticipated 9. BPI updated Pain severity score of 8.3, activity interference score of 7.3. Previous BPI completed 11/26/23 with pain severity score of 6.3, activity interference score of 5.6. documented in this encounter Plan of Treatment Upcoming Encounters Date Type Department Care Team (Late st Contact Info) Description 07/06/2024 9:00 AM EDT Clinical Support [facility] MEDICINE [address] [place] [address] Padma Mujica, RN documented as of this encounter Visit Diagnoses Not on filedocumented in this encounter Additional Health Concerns Assessment Noted Time PHQ-9 Depression Total Score: 0 04/14/19 25 9:45 AM EST documented as of this encounter Care Teams Agricultural Equipment Operator Relationship Specialty Start Date End Date Erika Harding MD [address] [place] [address] PCP - General Family Medicine 11/28/15 documented as of this encounter
--- OUTSIDE RECORDS SUMMARY | 2024-04-20 19:21 | XMS_ITS | Encounter Summary ---
Author Organization [employer] Address [address] [facility] 7t [place] [address] Care Team Providers Care Records And Information Manager Name Role Phone Erika Harding MD Primary Care Provider + Reason for Visit * Reason Comments Pre-visit Planning SDOH screening negat omid and tobacco screening negative Encounter Details Date Type Department Care Team ([facility] st Contact Info) Description 03/31/2024 Patient Outreach [facility] MEDICINE 230 [place], [place] [phone] Erika Harding MD [address] [place] [address] Pre-visit Planning (SDOH screening negative and tobacco [...] Description 07/06/2024 9:00 AM EDT Clinical Support [facility] MEDICINE [address] [place] [address] Padma Mujica RN documented as of this encounter Visit Diagnoses Not on filedocumented in this encounter Care Teams Records And Information Manager Relationship Specialty Start Date End Date Erika Harding MD [address] [place] [address] PCP - General Family Medicine 11/28/15 documented as of this encounter
--- OUTSIDE RECORDS SUMMARY | 2024-04-20 19:21 | XMS_ITS | Encounter Summary ---
Author Organization [employer] Address 75 [facility] 7t [place] [address] Care Team Providers Care Drum Sealer Name Role Phone Erika Harding MD Primary Care Provider + Reason for Visit * Reason Comments Med Change Request Encounter Details Date Type Department Care Team ([facility] st Contact Info) Description 03/02/2024 Refill [facility] MEDICINE [address] [place], [place] [phone] Erika Harding MD [address] [place], [place] [phone] Social History Tobacco Use Types Packs/Day Years [...] 07/06/2024 9:00 AM EDT Clinical Support [facility] MEDICINE [address] [place] [address] Padma Mujica RN documented as of this encounter Visit Diagnoses Not on filedocumented in this encounter Care Teams Drum Sealer Relationship Specialty Start Date End Date Erika Harding MD [address] [place] [address] PCP - General Family Medicine 11/28/15 documented as of this encounter
== END 2024-04-20 16:28 | disposition home or self-care (01) ==
LOC: HO.HHCLNP 16:27
PROVIDERS: Visit Provider Internal Medicine
DX: M54.41 Lumbago with sciatica, right side (principal); G89.29 Other chronic pain
CPT/HCPCS: 80307

== ENCOUNTER 2024-06-03 09:13 | Outpatient (AMB) | payer MEDICARE, MEDICAID, SELFPAY ==
--- NOTE | 2024-06-03 08:07 | MHC.OFFVIS ---
Intake Visit Reasons: LDCT Allergies aspirin [ASA] Allergy (Unknown, Unverified 03/19/23 08:41) SWELLING HPI HPI LDCT: Details: Initial visit for this 53yo former smoker with a 27PYH. Patient started smoking at age 16 for 37 years at 1/2-1ppd. He recently quit 4 months ago 01/2024. . Denies marijuana use. Denies second hand smoke exposure. Denies exposure to chemicals or substances like asbestos. . Denies known family history of lung cancer. Denies personal history of cancers. Denies chest CT in last year. . Denies recent travel outside the [place]. Denies recent respiratory illness or recent hospitalization for respiratory issues. . Denies fever, chills, new/worsening cough, hemoptysis, hoarseness or dysphagia. Denies significant chest pain, significant dyspnea or unintentional weight loss. Patient Lung Cancer Screening Questionnaire reviewed with patient by provider. . Shared Decision Making Completed. Patient meets criteria. Discussed in detail with patient, the risk vs benefit of LDCT screening. Patient consents to proceed with scan. Discussed and encouraged continued smoking cessation. [facility] History (Updated 06/03/24 @ 09:24 by Jennifer Marcum PA-C) Hypertension Personal history of nicotine dependence Obesity Surgical History History of right knee surgery History of appendectomy Social History (Updated 06/03/24 @ 09:24 by Jennifer Marcum PA-C) Patient Tobacco Use Status: Former Tobacco user Years Smoked: (onset 16yo, 1/2-1ppd x 37yrs, 27pyh - quit 01/2024) Assessment & Plan Assessment & Plan (1) Personal history of nicotine dependence: Comment: (onset 16yo, 1/2-1ppd x 37yrs, 27pyh - quit 01/2024) Code(s): Z87.891 - Personal history of nicotine dependence Category: Medical Plan: - SDM visit completed today in office. - Patient meets criteria for LDCT for lung cancer screening purposes and is asymptomatic. - Smoking cessation counseling offered. Patients can always call [phone]. - Will arrange for a LDCT scan of the chest for screening purposes at [facility]. - Risks, benefits, and alternatives were discussed in detail and the patient agrees to proceed. - Risks discussed include but are not limited to: radiation exposure, anxiety during testing and while awaiting results, false negatives, false positives and possibility of additional intervention such as further imaging or surgical procedures for benign disease. - Benefits are obviously detection of lung cancer at an early stage which can lead to improved outcomes. - Discussed the importance of screening program compliance with adherence to yearly LDCT scan as scheduled - or sooner interval scans for personalized screening regimen. - Discussed follow up plan. Our office will send a letter discussing results and if needed set up phone call and office visit based on CT findings. - Patient educated on results categorization and the management decisions for suspicious findings potentially found on the screening LDCT scan. Any patient with a Lung RADS score of 3 or 4 will be reviewed by a multidisciplinary team at [facility] to form a plan of action in regards to scan findings. - If further work up is warranted for a suspicious lung finding this will be followed by the Lung Cancer Screening program in conjunction with the Thoracic Surgery Department at [facility]. - A copy of the office note and LDCT will be sent to the patient's PCP - as well as documentation on any associated further plans of care. - Incidental findings on LDCT are the PCP's responsibility. These findings are indicated with an S finding on the LDCT Assessment. A note discussing the findings will be sent to the PCP who is then responsible for further management. - All questions answered.? Coding Level of Care Code Lung Cancer Screening G0296 Diagnoses Personal history of nicotine dependence Z87.891
--- OUTSIDE RECORDS SUMMARY | 2024-06-03 09:41 | XMS_ITS | Encounter Summary ---
Author Organization [employer] Address 75 [facility] 7t [place] [address] Care Team Providers Care Alarm Service Technician Name Role Phone Erika Harding MD Primary Care Provider + Reason for Visit * Reason Comments Med Refill Encounter Details Date Type Department Care Team (Late st Contact Info) Description 01/04/2024 Refill [facility] 230 [place], [place] [phone] Erika Harding MD 230 [place], [place] [phone] Social History Tobacco Use Types Packs/Day Years [...] Description 07/06/2024 9:00 AM EDT Clinical Support [facility] [address] [place] [address] Padma Mujica RN documented as of this encounter Visit Diagnoses Not on filedocumented in this encounter Care Teams Alarm Service Technician Relationship Specialty Start Date End Date Erika Harding MD 230 [place] [address] PCP - General Family Medicine 11/28/15 documented as of this encounter
--- OUTSIDE RECORDS SUMMARY | 2024-06-03 09:41 | XMS_ITS | Encounter Summary ---
Author Organization [employer] Address 75 [facility] 7t [place] [address] Care Team Providers Care Sustainable Agriculture Specialist Name Role Phone Erika Harding MD Primary Care Provider + Reason for Visit * Reason Onset Date Comments Call Back Request 12/18/2022 Encounter Details Date Type Department Care Team ([facility] Contact Info) Description 12/18/2022 Telephone [facility] MEDICINE 230 [place], [place] [phone] Erika Harding MD 230 [place], [place] [phone] Call Back Request Social History Tobacco Use [...] Description 07/06/2024 9:00 AM EDT Clinical Support [facility] MEDICINE [address] [place] [address] Padma Mujica, REMBERTO documented as of this encounter Visit Diagnoses Not on filedocumented in this encounter Care Teams Sustainable Agriculture Specialist Relationship Specialty Start Date End Date Erika Harding MD [address] [place] [address] PCP - General Family Medicine 11/28/15 documented as of this encounter
--- OUTSIDE RECORDS SUMMARY | 2024-06-03 09:41 | XMS_ITS | Encounter Summary ---
Author Organization [employer] Address 75 [facility] 7t [place] [address] Care Team Providers Care Lining Printer Name Role Phone Erika Harding MD Primary Care Provider + Encounter Details Date Type Department Care Team ([facility] st Contact Info) Description 06/25/2023 Orders Only [facility] 230 [place], [place] [phone] Erika Harding MD [address] [place] [address] Social History Tobacco Use Types Packs/Day Years [...] Description 07/06/2024 9:00 AM EDT Clinical Support [facility] MEDICINE [address] [place] [address] Padma Mujica RN documented as of this encounter Procedures Procedure Name Priority Date/Time Associated Diagnosis Comments PULMONARY FUNCTION TESTING Routine 06/07/2023 2:09 PM EDT documented in this encounter Results * Pulmonary function testing (06/07/2023 2:09 PM EDT) us Erika Harding MD PFT ORDERABLES Final Re sult documented in this encounter Visit Diagnoses Not on filedocumented in this encounter Care Teams Lining Printer Relationship Specialty Start Date End Date Erika Harding MD [address] [place] [address] PCP - General Family Medicine 11/28/15 documented as of this encounter
--- OUTSIDE RECORDS SUMMARY | 2024-06-03 09:41 | XMS_ITS | Encounter Summary ---
Author Organization [employer] Address 75 [facility] 7t [place] [address] Care Team Providers Care Unit Control Worker Name Role Phone Erika Harding MD Primary Care Provider + Reason for Visit * Reason Comments Med Change Request Encounter Details Date Type Department Care Team ([facility] st Contact Info) Description 03/02/2024 Refill [facility] MEDICINE 230 [place], [place] [phone] Erika Harding MD [address] [place], [place] [phone] Social History Tobacco Use Types Packs/Day Years [...] Description 07/06/2024 9:00 AM EDT Clinical Support [facility] MEDICINE [address] [place] [address] Padma Mujica RN documented as of this encounter Visit Diagnoses Not on filedocumented in this encounter Care Teams Unit Control Worker Relationship Specialty Start Date End Date Erika Harding MD [address] [place] [address] PCP - General Family Medicine 11/28/15 documented as of this encounter
--- OUTSIDE RECORDS SUMMARY | 2024-06-03 09:41 | XMS_ITS | Encounter Summary ---
Author Organization [employer] Address 75 [facility] 7t [place] [address] Care Team Providers Care Door To Door Salesman Name Role Phone Erika Harding MD Primary Care Provider + Reason for Visit * Reason Onset Date Comments Med Refill 02/26/2022 Encounter Details Date Type Department Care Team ([facility] [place] st Contact Info) Description 02/26/[address] [facility] MEDICINE [address] [place], [place] [phone] Erika Harding MD 230 [place], [place] [phone] Med Refill Social History Tobacco Use Types [...] PM EST Both medications were sent to [facility] # [id number] * Telephone Encounter - Lew Dawn - 02/26/2022 1:44 PM EST Tc from pt requesting med refill Lisinopril 10 mg ) ( metoprolol xl 100 mg ) documented in this encounter Plan of Treatment Upcoming Encounters Date Type Department Care Team (Late st Contact Info) Description 07/06/2024 9:00 AM EDT Clinical Support [facility] MEDICINE [address] [place] [address] Padma Mujica, REMBERTO documented as of this encounter Visit Diagnoses Not on filedocumented in this encounter Care Teams Door To Door Salesman Relationship Specialty Start Date End Date Erika Harding MD [address] [place] [address] PCP - General Family Medicine 11/28/15 documented as of this encounter
--- OUTSIDE RECORDS SUMMARY | 2024-06-03 09:41 | XMS_ITS | Encounter Summary ---
Author Organization [employer] Address 75 [facility] 7t [place] [address] Care Team Providers Care Lab Scientist Name Role Phone Erika Harding MD Primary Care Provider + Encounter Details Date Type Department Care Team (Late Contact Info) Description 03/27/2022 Abstract [facility] ADULT DENTAL 230 [place], [place] [phone] Jeremy Morse DDS 230 [place], [place] [phone] Social History Tobacco Use Types Packs/Day Years [...] Description 07/06/2024 9:00 AM EDT Clinical Support [facility] MEDICINE 230 [place] [address] Padma Mujica RN documented as of this encounter Visit Diagnoses Not on filedocumented in this encounter Care Teams Lab Scientist Relationship Specialty Start Date End Date Erika Harding MD 230 [place] [address] PCP - General Family Medicine 11/28/15 documented as of this encounter
--- OUTSIDE RECORDS SUMMARY | 2024-06-03 09:41 | XMS_ITS | Clinical Summary ---
Author Organization [employer] Address 75 [facility] 7t [place] [address] Care Team Providers Care Cloth Winder Machine Operator Name Role Phone Erika Harding MD Primary Care Provider + Allergies Active Allergy Reactions Criticality Noted Date Comments Aspirin Swelling 04/18/2016 Swelling eyes, face. Ibuprofen Swelling 03/12/2022 Eyes, face swelling. Tramadol Swelling 03/12/2022 Swelling eyes, face. Medications loratadine (Claritin) 10 MG tabletIndications :Allergic conjunctivitis of both eyes TAKE 1 TABLET BY MOUTH EVERY DAY IN THE MORNING 90 tablet 023 Active loteprednol (Lotemax) 0.5 % ophthalmic suspension 024 Active nicotine polacrilex (Commit) 4 MG lozenge Take 1 tablet by mouth every 2 (two) hours. 022 Active naloxone (Narcan) 4 mg/0.1 mL nasal [...] to 10 doses. 10 tablet 024 Active lisinopril 10 MG tabletIndications :Essential [...] NOT SWALLOW. 30 each 11 025 Active pregabalin (Lyrica) 75 MG capsule Take 1 capsule (75 mg) by mouth 2 times daily. 60 capsule 1 Active acetaminophen (Tylenol Extra Strength) 500 MG tablet Take 1 tablet (500 mg) by mouth every 6 (six) hours if needed for mild pain. 120 tablet 025 2024 Active acetaminophen (Tylenol) 500 MG tabletIndications :Chronic bilateral low back pain with right-sided sciatica Take 2 tablets (1,000 mg) by mouth every 6 (six) hours if needed for moderate pain or fever for up to 25 doses. 50 tablet 025 Active nicotine (Nicoderm CQ) 7 MG/24HR patch Place 1 patch on the skin 1 (one) time each day at the same time. 30 patch 025 Active oxyCODONE (Roxicodone) 5 MG immediate release tabletIndications :Chronic bilateral low back pain with right-sided sciatica Take 1 tablet (5 mg) by mouth every 12 (twelve) hours if needed for severe pain for up to 28 days. 56 tablet 025 2024 Active metoprolol succinate XL (Toprol-XL) 100 MG 24 hr tabletIndications :HTN (hypertension), benign TAKE 1 TABLET BY MOUTH EVERY DAY IN THE MORNING 90 tablet 1 025 Active lisinopril-hydroC HLOROthiazide 20-25 MG tablet TAKE 1 TABLET BY MOUTH ONCE PER DAY. (ALONG WITH LISINOPRIL 10MG) 90 tablet 1 025 Active metoprolol succinate XL (Toprol-XL) 100 MG 24 hr tabletIndications :HTN (hypertension), benign TAKE 1 TABLET BY MOUTH EVERY DAY IN THE MORNING 90 tablet 1 024 2024 Discontinued lisinopril-hydroC HLOROthiazide 20-25 MG tablet TAKE 1 TABLET BY MOUTH EVERY DAY 90 tablet 1 024 2024 Discontinued oxyCODONE (Roxicodone) 5 MG immediate release tabletIndications :Chronic bilateral low back pain with right-sided sciatica Take 1 tablet (5 mg) by mouth every 12 (twelve) hours if needed for severe pain for up to 28 days. 56 tablet 025 2024 Discontinued(R eorder (will [...] life style modifications, diet and referral to clinical informatics specialist. Recommended to decrease soda and sugary [...] use after work and follow up with IMPLANT COORDINATOR clinic. Advised to use Tylenol Q6hrs in [...] many years. We discussed about [place] and [place] [facility] options, he's aware that opiates may not [...] ketotifen eye dfrops and loratidine FU with alley cleaner. Moderate persistent asthma without complication 04/09/2022 Assessment [...] 03/27/2022 Viral upper respiratory tract infection 03/09/19 Primary hypertension 12/06/2015 Assessment & Plan (04/14/2024 [...] spine/foraminal stenosis: MRI L-spine on 07/01/23 at [facility] Assessment & Plan (05/04/2024 1:11 PM EDT): Discussed with patient proper use of Opioid medication BID only. He will take Tylenol with Lyrica for low back pain exacerbation especially with radiculopathy. He can also take Cyclobenzaprine PRN for pain exacerbation when Oxycodone is not due. Counseled about quitting smoking, he has prescription of nicotine patches at pharmacy. He has 46 pills and was expected to have 44. Continue to FU with IMPLANT COORDINATOR nurse. Assessment & Plan (07/01/2023 11:50 AM EDT): [...] vigilance U-Tox and he will fu with IMPLANT COORDINATOR nurse for new intake He has been [...] Encounters Date Type Department Care Team Description 05/27/2024 Refill [facility] [address] [place] [address] Erika Harding MD HTN (hypertension), benign 05/25/2024 Refill [facility] [address] [place] [address] Erika Harding MD Chronic bilateral low back pain with right-sided sciatica 05/04/2024 11:00 AM EDT Office Visit [facility] [address] [place] [address] Erika Harding MD Chronic bilateral low back pain with right-sided sciatica (Primary Dx) 05/04/2024 Travel 04/28/2024 Telephone [facility] [address] [place] [address] Erika Harding MD Appointment Request 04/28/2024 Refill [facility] [address] [place] [address] Erika Harding MD Chronic bilateral low back pain with right-sided sciatica 04/25/2024 Telephone [facility] [address] [place] [address] Erika Harding MD Referral 04/25/[address] [address] Padma Mujica, RN UTOX confirmation Neg OXY 04/20/2024 2:00 PM EST Clinical Support [address] [address] Padma Mujica, stock feeder bilateral low back pain with right-sided sciatica (Primary Dx); Long-term current use of opiate analgesic 04/20/[address] [address] Padma Mujica, RN IMPLANT COORDINATOR Renewal today; Oxycodone Count discrepancy; UTOX Neg OXY 04/20/2024 Travel 04/14/2024 10:15 AM EST Office Visit [address] [address] Erika Harding MD Primary hypertension (Primary Dx); Obesity, morbid (CMS/HCC); Cigarette nicotine dependence without complication; Screening for colorectal cancer; Screening for lung cancer; Class 2 severe obesity due to excess calories with serious comorbidity and body mass index (BMI) of 37.0 to 37.9 in adult (CMS/HCC); Dietary counseling; Exercise counseling 04/14/2024 Travel 04/11/[address] [address] Erika Harding MD Chart prep 04/11/[address] [address] Erika Harding MD stable lab letter 04/08/[address] [address] Erika Harding MD Lab Orders 03/31/2024 Patient Outreach [address] [address] Erika Harding MD Pre-visit Planning (SDOH screening negative and tobacco screening negative) 03/29/[address] [address] Erika Harding MD Chronic bilateral low back pain with right-sided sciatica from Last 3 Months Social History Tobacco Use Types Packs/Day Years Used Date Smoking Tobacco: Former Cigarettes 0.5 40 Q uit: 03/28/2024 Cigars Passive Smoke Exposure: Current Smokeless Tobacco: Never Tobacco Cessation:Counseling Given: Not Answered Comments:Smokes a few cigars a day. Smoked [...] Sign Reading Time Taken Comments Blood Pressure 139/93 05/04/2024 10:04 AM EDT Pulse 69 05/04/2024 10:04 AM EDT Temperature 35.8 ??C (96.4 ??F) 05/04/2024 10:04 AM E DT Respiratory Rate 21 04/14/2024 9:43 AM EST Oxygen Saturation 97% 05/04/2024 10:04 AM EDT Inhaled Oxygen Concentration - - Weight 127 kg (279 lb 6 oz) 05/04/2024 10:04 AM EDT Height 182.9 cm (6') 05/04/2024 10:04 AM EDT Body Mass Index 37.89 05/04/2024 10:04 AM EDT Plan of Treatment Upcoming Encounters Date Type Department Care Team (Late st Contact Info) Description 07/06/2024 9:00 AM EDT Clinical Support [facility] [address] [place] [phone] Padma Mujica, RN Health Maintenance Due Date Last Done Comments CT Colonography 1970 Colonoscopy 1970 Colorectal Cancer Screening 1970 Dental Prophylaxis 1970 FIT DNA/Cologuard 1970 FIT 1970 FOBT 1970 HIV Screening 1970 Sigmoidoscopy 1970 Hepatitis C Screening 1988 DTaP/Tdap/Td Vaccines (1 - Tdap) 1989 Hepatitis B Vaccines (1 of 3 [...] Depression Screening 04/14/2025 04/14/2024, 04/14/2024 Tobacco Screening 05/04/2025 05/04/2024 Lipid Panel 04/08/2029 04/08/2024 RSV Patients and Patients Aged 60 years or older (1 - 1-dose 75+ series) 2045 HIB Vaccines Aged Out No longer eligi ble based on patient's age to complete this topic HPV Vaccines Aged Out No longer eligi ble based on patient's age to complete this topic Hepatitis A Vaccines Aged Out No long er eligible based on patient's age to complete [...] Name Priority Date/Time Associated Diagnosis Comments POCT MANULE-14 URINE DRUG SCREEN Routine 04/20/2024 2:03 PM [...] Routine 04/08/2024 9:55 AM EST Essential hypertension INTRAORAL - COMPLETE SERIES OF RADIOGRAPHIC IMAGES [...] - 04/20/2024 2:03 PM EST UTOX cup Lot#[id number] Exp. 10/05/25 Internal Pass Control UTOX Negative for all substances. Erika Harding MD POINT OF CARE TEST ENTER /EDIT ORDERABLES Final Result * Oxycodone Screen, Urine (04/20/2024 1:45 PM EST) Oxycodone Urine Screen Not Detected Not Detect ng/mL [facility] Comment:Oxycodone cut-off is 100 ng/mL.Positive results are unconfirmed and should not be used fornon-medical purposes. Urine 04/20/2024 1:4 5 PM EST 04/20/2024 4:28 PM EST Erika Harding MD LAB URINE ORDERABLES Fin al Result Performing Organization Address City/[facility]/ZIP Co de Phone Number [facility] [address] [place] [phone] * TSH with Reflex to Free T4 (04/08/2024 9:55 AM EST) Pathologist [facility] TSH reflex Free T4 2.19 0.32 - 4.0 uIU/mL [facility] Blood 04/08/2024 9:55 AM EST 04/08/2024 9:55 AM EST Erika Harding MD LAB BLOOD ORDERABLES Fin al Result Performing Organization Address City/[facility]/ZIP Co de Phone Number [facility] [address] [place] [phone] * (ABNORMAL) Lipid Panel with Reflex to Direct LDL (04/08/2024 9:55 AM EST) Triglycerides 125 <150 mg/dL [facility] Comment:Desirable Triglyceri de: less than 150 mg/dLBorderline High Triglyceride 150-199 mg/dLHigh Triglyceride: 200-499 mg/dLVery High Triglyceride: greater than or equal to 5OO mg/dL Cholesterol 151 <200 mg/dL [facility] Comment:Desirable Cholestero l: less than 200 mg/dLBorderline High Cholesterol: 200-239 mg/dLHigh Cholesterol: greater than 239 mg/dL LDL Cholesterol Calculated 97 <100 mg/dL [facility] Comment:Desirable LDL: less than 100 mg/dLNear Optimal/Above Optimal LDL: 110- 129 mg/dLBorderline High LDL: 130-159 mg/dLHigh LDL: 160-189 mg/dLVery High LDL: greater than or equal to 190 mg/dL HDL Cholesterol 29(L) >40 mg/dL [facility] Comment:Desirable HDL: great er than 40 mg/dL Note: This HDL assay may give artificially low results in patients with liver disease. Blood 04/08/2024 9:55 AM EST 04/08/2024 9:55 AM EST us Erika Harding MD LAB BLOOD ORDERABLES Fin al Result [facility] [address] [place] [phone] [phone] * (ABNORMAL) Basic Metabolic Panel (04/08/2024 9:55 AM EST) Sodium 139 135 - 145 mmol/L [facility] Potassium 3.9 3.3 - 5.1 mmol/L [facility] Chloride 104 96 - 108 mmol/L [facility] Carbon Dioxide 28 22 - 29 mmol/L [facility] Anion Gap 11(L) 12 - 20 [facility] Urea Nitrogen (BUN) 21(H) 9 - 16 mg/dL [facility] Creatinine, Serum 0.74 0.5 - 1.4 mg/dL [facility] Estimated Glomerular Filt Rate >60 [facility] Comment:Chronic Kidney Disea se: Estimated GFR < 60 mL/min/1.95p2Ydyklm Kidney Disease: Estimated GFR < 15 mL/min/1.73m2 Glucose 95 60 - 115 mg/dL [facility] Calcium 9.1 8.4 - 10.2 mg/dL [facility] Blood Venous blood specimen / Unknown 04/08/2024 9:55 AM EST 04/08/2024 9:55 AM EST Erika Harding MD LAB BLOOD ORDERABLES Fin al Result [facility] [address] [place] [phone] from Last 3 Months Insurance MEDICARE [employer] Care Teams Cloth Winder Machine Operator Relationship Specialty Start Date End Date Erika Harding MD [address] [place] [phone] PCP - General Family Medicine 11/28/15
--- OUTSIDE RECORDS SUMMARY | 2024-06-03 09:42 | XMS_ITS | Encounter Summary ---
Author Organization [employer] Address 75 [facility] 7t [place] [address] Care Team Providers Care Building Coordinator Name Role Phone Erika Harding MD Primary Care Provider + Encounter Details Date Type Department Care Team ([facility] Contact Info) Description 06/13/2022 Orders Only [facility] [address] [place] [address] Yessi Wayne LPN Social History Tobacco Use [...] Support [facility] [address] [place] [address] Padma Mujica RN documented as of this encounter Visit Diagnoses Not on filedocumented in this encounter Care Teams Building Coordinator Relationship Specialty Start Date End Date Erika Harding MD [address] [place] [address] PCP - General Family Medicine 11/28/15 documented as of this encounter
--- OUTSIDE RECORDS SUMMARY | 2024-06-03 09:42 | XMS_ITS | Clinical Summary ---
Author Organization [address] [facility] Address [address] [place] [address] Phone Care Team Providers Care Lace Paper Machine Operator Name Role Phone Giovani Tinoco MD Primary Care Provider [phone] Allergies Active Allergy Reactions Criticality Noted Date [...] with body ma ss index (BMI) of 38.0 to 38.9 in adult 02/23/2024 Cocaine abuse ([facility] V24, [facility] V28) 014 Overview (01/06/2024): See uds 02/2013 Degeneration of cervical intervertebral disc Degenerative lumbar disc 07/07/2012 Allergic rhinitis 07/07/2012 HTN (hypertension) 05/12/2012 Hypothyroidism 05/12/2012 Overview (01/06/2024): ? diagnosis correct Asthma 05/12/2012 Encounters Date Type Department Care Team Description 04/22/2024 9:00 AM EST Nutrition [facility] [place] [address] [address] Class 2 obesity with body mass index (BMI) of 38.0 to 38.9 in adult, unspecified obesity type, unspecified whether serious comorbidity present (Primary Dx) 03/25/2024 9:00 AM EST [facility] [place] [address] [address] Class 2 obesity with body mass index (BMI) of 37.0 to 37.9 in adult, unspecified obesity type, unspecified whether serious comorbidity present (Primary Dx) from Last 3 Months Surgical History Surgery Date Site/Laterality Comments APPENDECTOMY -1989 PROCEDURE: TX APPENDEC INDICATED PURPOSE OTH MAJOR PX NOT [...] - Inhaled Oxygen Concentration - - Weight 124 kg (274 lb) 04/22/2024 9:05 AM EST Height 180.3 cm (5' 11 ) 02/19/2024 8:26 AM EST Body Mass Index 38.22 02/19/2024 8:26 AM EST Plan of Treatment Health Maintenance Due Date Last Done Comments DTaP,Tdap,and Td Vaccines (1 - Tdap) 1989 Hepatitis B [...] Panel) 01/19/2022 Colorectal Cancer Screening: Colonoscopy 01/19/2022 HIV Screening 01/19/2022 Hepatitis C Screening 01/19/2022 Lung Cancer Screening (Low D ose CT) 01/19/2022 Social Influencers of Health Screening 01/19/2022 COVID-19 Vaccine (2023-2 5 season) 2023 Influenza Vaccine (Season Ended) 2024 Hypertension/CHF/CAD Annual BMP Blood Test 04/08/2025 04/08/2024 Depression Screening 04/14/2025 04/14/2024 HIB Vaccines Aged Out No longer eligi [...] age to complete this topic Meningococcal B Vaccine Aged Out No l onger eligible based on patient's age to complete this topic RSV Immunization Patients Un felicitas 20 months Aged Out No longer eligible b ased on patient's age to complete this topic Varicella Vaccines Aged Out No longer eligible based on patient's age to complete this topic Insurance MEDICARE MEDICAID - [place] Care Teams Lace Paper Machine Operator Relationship Specialty Start Date End Date Giovani Tinoco MD [address] [place] [phone] PCP - General Internal Medicine 12/28/23
--- OUTSIDE RECORDS SUMMARY | 2024-06-03 09:42 | XMS_ITS | Encounter Summary ---
Author Organization [employer] Address 75 [facility] 7t [place] [address] Care Team Providers Care Gallery Or Museum Attendant Name Role Phone Erika Harding MD Primary Care Provider + Encounter Details Date Type Department Care Team (Late Contact Info) Description 04/18/2022 Abstract [facility] ADULT [facility]AL [address] [place], [place] [phone] Heladio Alberts, SANYA [address] [place], [place] [phone] Social History Tobacco Use Types Packs/Day Years [...] Description 07/06/2024 9:00 AM EDT Clinical Support [facility] [address] [place] [address] Sil, Padma, RN documented as of this encounter Visit Diagnoses Not on filedocumented in this encounter Care Teams Gallery Or Museum Attendant Relationship Specialty Start Date End Date Erika Harding MD [address] [place] [phone] PCP - General Family Medicine 11/28/15 documented as of this encounter
== END 2024-06-03 09:53 | disposition home or self-care (01) ==
LOC: HO.HPS 09:14
PROVIDERS: PCP Internal Medicine; Referring Provider Internal Medicine; Visit Provider Physician Assistant Medical
DX: Z87.891 Personal history of nicotine dependence (principal)
CPT/HCPCS: G0296

== ENCOUNTER 2024-06-03 09:24 | Outpatient (REF) | payer MEDICARE, MEDICAID, SELFPAY ==
--- NOTE | ~2024-06-03 | CT_ITS ---
CLINICAL HISTORY: Z87.891 - Personal history of nicotine dependence CT lung cancer screening (LDCT) Comparison: None Technique: Axial CT images of the chest using low-dose technique. Referring provider counseled the patient on shared decision-making for LDCT screening. Additional counseling was provided on smoking cessation. Effective radiation dose total: DLP 107.7 mGycm, CTDIvol 3.3 mGy. Findings: Lung: Trachea and central bronchi are patent. No dense consolidation, pleural effusion or pneumothorax. Noncalcified oval nodule in the inferior right upper lobe along the fissure measuring 6 mm, possibly an intrapulmonary lymph node. 1 mm right upper lobe pulmonary nodule on image 43 of series 4. Coronary artery calcifications: None appreciated Nonaneurysmal aorta. Mediastinal structures are unremarkable. No adenopathy. No chest wall lesions or thyroid nodules appreciated. Limited upper abdomen: Hepatic steatosis. Other: None Impression: Pulmonary nodules with a benign appearance or behavior. No acute cardiopulmonary disease. Lung rads category 2 Category 1: Normal; continue annual screening Category 2: Benign appearance or behavior, continue annual screening Category 3: Probably benign, [address] recommended Category 4A: Suspicious, [address] recommended; may consider PET/CT Category 4B: Suspicious, Additional diagnostics and/or tissue sampling recommended Category 4X: Suspicious, Additional diagnostics and/or tissue sampling recommended Category 0: Recalls (incomplete screen due to Incomplete coverage, Noise, Respiratory motion, Expiration, Obscured by acute abnormality) This document has been electronically signed by: Connie Gan MD on 06/04/2024 09:15:44
== END 2024-06-03 09:25 | disposition home or self-care (01) ==
LOC: HO.CT 09:24
PROVIDERS: PCP Internal Medicine; Visit Provider Physician Assistant Medical
DX: Z12.2 Encounter for screening for malignant neoplasm of respiratory organs (principal); Z87.891 Personal history of nicotine dependence
CPT/HCPCS: 71271

== ENCOUNTER → 2024-06-03 09:26 | Outpatient (BNV) | payer MEDICAID, SELFPAY | PROVIDERS: PCP Internal Medicine; Visit Provider Radiology Diagnostic Radiology | DX: Z12.2 Encounter for screening for malignant neoplasm of respiratory organs (principal); Z87.891 Personal history of nicotine dependence | CPT/HCPCS: 71271 ==

== ENCOUNTER 2024-08-24 08:43 | Outpatient (AMB) | payer MEDICARE, MEDICAID, SELFPAY ==
--- OUTSIDE RECORDS SUMMARY | 2024-08-24 08:55 | XMS_ITS | Encounter Summary ---
Author Organization [employer] Address 75 [facility] 7t [place] [address] Care Team Providers Care Inside Barrel Polisher Name Role Phone Erika Harding MD Primary Care Provider + Reason for Visit * Reason Onset Date Comments Call Back Request 12/18/2022 Encounter Details Date Type Department Care Team ([facility] Contact Info) Description 12/18/2022 Telephone [facility] [address] [place], [place] [phone] Erika Harding MD [address] [place], [place] [phone] Call Back Request Social History Tobacco Use [...] 90 12/18/2022 10:21 AM EDT Temperature 36.8 C (98.2 F) 12/18/2022 10:21 AM EDT Respiratory Rate - - Oxygen Saturation 97% [...] Care Team (Late st Contact Info) Description 10/06/2024 10:15 AM EDT Office Visit [facility] [address] [place] [phone] Erika Harding MD [address] [place] [phone] 10/18/2024 2:00 PM EDT Clinical Support [address] [address] Padma Mujica RN documented as of this encounter Visit Diagnoses Not on filedocumented in this encounter Care Teams Inside Barrel Polisher Relationship Specialty Start Date End Date Erika Harding MD [address] [place] [address] [place] [address] PCP - General Family Medicine 11/28/15 documented as of this encounter
--- NOTE | 2024-08-24 08:56 | A.OFFVIS_ITS ---
Vital Signs 08/24/24 09:01 Height 6 ft Weight 271 lb BMI 36.8 BP 136/78 Blood Pressure Location Rt brachial Position Sitting Pulse 62 Pulse Source Pulse Oximeter Pulse Oximetry (%) 98 Oxygen Delivery Method Room Air Intake Visit Reasons: Vanderwagen screening Intake Note: New pt for initial colo screening. CC; Pt denies any GI sx or concerns at this time. No pertinent FMHx. Director Of Assessment Required: No Accompanied by: Significant Other Allergies aspirin (ASA) Allergy (Unknown, Unverified 03/19/23 08:41) SWELLING HPI HPI Vanderwagen screening: Details: 53 year old? male here today for pre colonoscopy screening.? Patient was sent to us by his PCP.? This is his first colonoscopy screening.? Patient denies any gastrointestinal symptoms in the past or at present.? Denies any personal or family history of gastrointestinal disease, colon polyps, or CRC.? Denies history of difficulty with sedation or anesthesia in the past.? Negative for history of sleep apnea.? Denies any history of cardiac, renal, pulmonary, or hepatic disease.?? No history of infectious diseases like hepatitis A, B, C, HIV or tuberculosis.? Patient is not on any anticoagulation [facility] Medical History Hypertension Personal history of nicotine dependence Obesity Surgical History History of right knee surgery History of appendectomy Social History Patient Tobacco Use Status: Former Tobacco user Years Smoked: (onset 16yo, 1/2-1ppd x 37yrs, 27pyh - quit 01/2024) Review of Systems Const Denies weight gain and Denies weight loss ENT Reports no additional complaints, Denies dysphagia and Denies odynophagia Card Reports no additional complaints Resp Reports no additional complaints GI Denies abdominal pain, Denies belching, Denies melena, Denies bloating, Denies change in bowel habits, Denies dysphagia, Denies excessive flatus, Denies dyspepsia, Denies heartburn, Denies diarrhea, Denies loose stools, Denies nausea, Denies odynophagia and Denies vomiting Reports no additional complaints Musc Reports no additional complaints Neuro Reports no additional complaints Psych Reports no additional complaints Endo Reports no additional complaints Physical Exam Vital Signs: Last Vital Signs Pulse 62 08/24/24 09:01 BP 136/78 08/24/24 09:01 Pulse Ox 98 08/24/24 09:01 Oxygen Delivery Method Room Air 08/24/24 09:01 BMI result Body Mass Index 36.8 Const General: healthy appearing, no acute distress and well developed Nutritional Appearance: well nourished and obese Orientation/consciousness: patient oriented x3 Resp Effort & Inspection: normal respiratory effort, able to speak in complete sentences, no tracheal deviation and symmetric chest movement Auscultation: clear to auscultation bilaterally Cardio Rate: regular rate GI Inspection: Yes normal to inspection, No distended and Yes obesity Palpation (GI): Soft to palpation, not firm, nontender and No hepatosplenomegaly present Auscultation: normal bowel sounds General: Yes no CVA tenderness Back/Spine/Pelvis Back: no CVA tenderness Skin General skin exam: elasticity normal, turgor normal and dry skin Neuro General: patient oriented x3 Psych Appearance: grossly normal Mental Status: mental status grossly normal Assessment & Plan Assessment & Plan (1) Screen for colon cancer: Code(s): Z12.11 - Encounter for screening for malignant neoplasm of colon Plan Patient denies any GI, cardiac or respiratory symptoms.? Denies any issues with anesthesia in the past.? Denies any history of sleep apnea.? No history infectious diseases in the past or present.? Not on any anticoagulation therapy.? No family or personal history of colon cancer or polyps.? Patient denies melena, hematochezia, unintentional weight loss or ribbon like stools.? Discussed at length the pre-procedure,? prep, diet & medications as well as what to expect prior, during and after the procedure.?? Stressed the importance of good bowel prep.? Recommended the use of Vaseline or Calmoseptine OTC & baby wipes with bowel movements to promote comfort.? ?Patient verbalizes understand ing and agrees to plan of care.? He was given the opportunity to ask questions and all questions answered.? We will see him after the procedure.? Medications: New bisacodyl (Dulcolax (bisacodyl)) take 4 tabs at noon the day before your colonoscopy 20 mg (4 x 5 mg) PO ONCE 4 tabs 0RF constipation 1 day Z12.11 - Encounter for screening for malignant neoplasm of colon polyethylene glycol 3350 (Miralax) As directed by gastroenterology department at [facility] 238 grams PO ONCE 238 grams 0RF Z12.11 - Encounter for screening for malignant neoplasm of colon Coding Level of Care Code New Pt Level 3 (53784) Diagnoses Screen for colon cancer Z12.11 Time Spent (min) 40 Comment 30 minutes spent with patient and additional 10 minutes spent reviewing his records
--- OUTSIDE RECORDS SUMMARY | 2024-08-24 08:56 | XMS_ITS | Clinical Summary ---
Author Organization [facility] Address [address] [place] [address] Phone Care Team Providers Care Progressive Care Unit Registered Nurse Name Role Phone Giovani Tinoco MD Primary Care Provider [phone] Allergies Active Allergy Reactions Criticality Noted Date [...] to 38.9 in adult 02/23/2024 Cocaine abuse ([facility] V24, [facility] V28) 014 Overview (01/06/2024): See uds 02/2013 Degeneration of cervical intervertebral disc Degenerative lumbar disc 07/07/2012 Allergic rhinitis 07/07/2012 HTN (hypertension) 05/12/2012 Hypothyroidism 05/12/2012 Overview (01/06/2024): ? diagnosis correct Asthma 05/12/2012 Surgical History Surgery Date Site/Laterality Comments APPENDECTOMY -1989 PROCEDURE: WA APPENDEC INDICATED PURPOSE OTH MAJOR PX NOT [...] 66 02/19/2024 8:26 AM EST Temperature 36.9 C (98.5 F) 02/19/2024 8:26 AM EST Respiratory Rate - - Oxygen Saturation - [...] 5 Years) and At-Risk Patients (6 to 49 Years) (1 of 2 - PCV) 1989 Zoster Vaccines (1 of 2) 2020 Cholesterol Screening (Lipid Panel) 01/19/2022 Colorectal Cancer Screening: Colonoscopy 01/19/2022 HIV Screening 01/19/2022 Hepatitis C Screening 01/19/2022 Lung Cancer Screening (Low D ose CT) 01/19/2022 Social Influencers of Health Screening 01/19/2022 COVID-19 Vaccine (1 - 2023-2 5 season) 2023 Influenza Vaccine (#1) 2024 Hypertension/CHF/CAD Annual BMP Blood Test 04/08/2025 [...] Insurance MEDICARE MEDICAID - [place] Care Teams Progressive Care Unit Registered Nurse Relationship Specialty Start Date End Date Giovani Tinoco MD [address] [place] [phone] PCP - General Internal Medicine 12/28/23
[2024-08-24 09:01] VITALS: BP 136/78; PULSE 62; O2SAT 98; BMI 36.8
== END 2024-08-24 09:20 | disposition home or self-care (01) ==
PROVIDERS: PCP Internal Medicine; Visit Provider Nurse Practitioner Family
DX: Z12.11 Encounter for screening for malignant neoplasm of colon (principal)
CPT/HCPCS: 99024

== ENCOUNTER → 2024-08-24 08:43 | Outpatient (BNVA) | payer SELFPAY | PROVIDERS: PCP Internal Medicine; Visit Provider Nurse Practitioner Family | DX: Z12.11 Encounter for screening for malignant neoplasm of colon (principal) | CPT/HCPCS: 99212 ==

== ENCOUNTER 2024-11-25 09:38 | Outpatient (REF) | payer SELFPAY ==
--- OUTSIDE RECORDS SUMMARY | 2024-11-24 11:00 | XMS_ITS | Encounter Summary ---
Author Organization [employer] Address [address] [facility] 7t [place] [address] Care Team Providers Care Bulb Brander Name Role Phone Erika Harding MD Primary Care Provider + Reason for Visit * Reason Comments Follow-up Encounter Details Date Type Department Care Team ([facility] st Contact Info) Description 11/24/2024 11:00 AM EDT Office Visit [facility] MEDICINE [address] [place], [place] [phone] Rafat Liu MD [address] [place], [place] [phone] BRBPR (bright red blood per rectum) (Primary Dx) Social History Tobacco Use Types [...] Sign Reading Time Taken Comments Blood Pressure 116/82 11/24/2024 10:48 AM EDT Pulse 71 11/24/2024 10:48 AM EDT Temperature 35.9 C (96.6 F) 11/24/2024 10:48 AM EDT Respiratory Rate 20 11/24/2024 10:48 AM EDT Oxygen Saturation 95% 11/24/2024 10:48 AM EDT Inhaled Oxygen Concentration - - Weight 122 kg (268 lb 6.4 oz) 11/24/2024 10:48 A M EDT Height - - Body Mass Index 36.4 05/04/2024 10:04 AM EDT documented in this encounter Progress Notes * Rafat Mason MD - 11/24/2024 11:00 AM EDT SUBJECTIVE Jeremy Melton is a 54 y.o. male who presents for Follow-up (/). Jeremy Melton, 54 years Rectal Bleeding - Noticed significant bright red blood in the toilet last night and again this morning - No pain during bowel movements; unaware of bleeding until visualized - Reports similar episodes of rectal bleeding on two previous occasions, many years ago - Denies constipation; bowel movements are regular and soft - Denies family history of colon cancer - Previously scheduled for colonoscopy; received preparation instructions and medications but has not yet undergone the procedure HPI Review of Systems Constitutional: Negative for fever. HENT: Negative for sore throat. Respiratory: Negative for cough and shortness of breath. Cardiovascular: Negative for chest pain. Gastrointestinal: Negative for abdominal pain. Neurological: Negative for headaches. Allergies[1] OBJECTIVE Vitals: 11/24/24 1048 BP: 116/82 BP Location: Left arm Patient Position: Sitting BP Cuff Size: Adult Pulse: 71 Resp: 20 Temp: 96.6 ??F (35.9 ??C) TempSrc: Oral SpO2: 95% Weight: 268 lb 6.4 oz (122 kg) Physical Exam Genitourinary: Rectum: Tenderness present. No anal fissure or external hemorrhoid. Assessment/Plan Problem List Items Addressed This Visit BRBPR (bright red blood per rectum) - Primary Likely due to internal hemorrhoids. Most common cause of bright red blood per rectum when blood is not mixed with stool. No palpable masses or external hemorrhoids on rectal exam. Definitive diagnosis pending colonoscopy. - Prescribed hydrocortisone rectal cream (Proctosol) to be applied twice daily, ideally after sitz baths with Epsom salts. Ordered hemoglobin blood test to assess for significant blood loss. Recommended colonoscopy for further evaluation. Advised to perform sitz baths with warm water and Epsom salts. Follow-up with primary care physician scheduled for December 06, 2024. Relevant Medications hydrocortisone (Proctosol HC) 2.5 % rectal cream Other Relevant Orders CBC auto differential This note was drafted using Ambient (AI) technology. The patient/patient's guardian has been informed and has consented to the use of this technology: Yes Future Appointments Date Time Provider Department Center 12/06/2024 10:30 AM Erika Harding MD MEDICINE [facility] 01/17/2025 2:00 PM Padma Mujica RN MEDICINE [facility] [1] Allergies Allergen Reactions Aspirin Swelling Swelling eyes, face. Motrin [Ibuprofen] Swelling Eyes, face swelling. Tramadol Swelling Swelling eyes, face. documented in this encounter Miscellaneous Notes * Assessment & Plan Note - Rafat Mason MD - 11/24/2024 11:22 AM EDT Associated Problem(s): BRBPR (bright red blood per rectum) Likely due to internal hemorrhoids. Most common cause of bright red blood per rectum when blood is not mixed with stool. No palpable masses or external hemorrhoids on rectal exam. Definitive diagnosis pending colonoscopy. - Prescribed hydrocortisone rectal cream (Proctosol) to be applied twice daily, ideally after sitz baths with Epsom salts. Ordered hemoglobin blood test to assess for significant blood loss. Recommended colonoscopy for further evaluation. Advised to perform sitz baths with warm water and Epsom salts. Follow-up with primary care physician scheduled for December 06, 2024. documented in this encounter Plan of Treatment Upcoming Encounters Date Type Department Care Team (Late st Contact Info) Description 12/06/2024 10:30 AM EDT Office Visit [facility] MEDICINE [address] [place] [phone] Erika Harding MD [address] [place] [phone] 01/17/2025 2:00 PM EST Clinical Support [address] [address] Padma Mujica RN Scheduled Orders Name Type Priority Associated Diagnoses Orde r Schedule CBC auto differential Lab Routine BRBPR (bright red blood per rectum) Expected: 11/24/2024 (Approximate), Expires: 11/24/2025 documented as of this encounter Visit Diagnoses Diagnosis BRBPR (bright red blood per rectum)- Primary Hemorrhage of rectum and anus documented in this encounter Additional Health Concerns Assessment Noted Time PHQ-9 Depression Total Score: 0 04/14/19 25 9:45 AM EST documented as of this encounter Care Teams Bulb Brander Relationship Specialty Start Date End Date Erika Harding MD [address] [place] [phone] PCP - General Family Medicine 11/28/15 documented as of this encounter
--- OUTSIDE RECORDS SUMMARY | 2024-11-25 10:19 | XMS_ITS | Encounter Summary ---
Author Organization [employer] Address [address] [facility] 7t [place] [address] Care Team Providers Care Bowling Ball Assembler Name Role Phone Erika Harding MD Primary Care Provider + Reason for Visit * Reason Comments Med Change Request Encounter Details Date Type Department Care Team ([facility] st Contact Info) Description 03/02/2024 Refill [facility] MEDICINE [address] [place], [place] [phone] Erika Harding MD [address] [place], [place] [phone] Social History Tobacco Use Types Packs/Day Years [...] Description 12/06/2024 10:30 AM EDT Office Visit [facility] MEDICINE [address] [place] [phone] Erika Harding MD [address] [place] [address] 01/17/2025 2:00 PM EST Clinical Support [facility] MEDICINE [address] [place] [address] Pamda Mujica, REMBERTO documented as of this encounter Visit Diagnoses Not on filedocumented in this encounter Care Teams Bowling Ball Assembler Relationship Specialty Start Date End Date Erika Harding MD [address] [place] [phone] PCP - General Family Medicine 11/28/15 documented as of this encounter
--- OUTSIDE RECORDS SUMMARY | 2024-11-25 10:19 | XMS_ITS | Encounter Summary ---
Author Organization [employer] Address [address] [facility] 7t [place] [address] Care Team Providers Care Experimental Rocket Sled Mechanic Name Role Phone Erika Harding MD Primary Care Provider + Reason for Visit * Reason Onset Date Comments Nurse Triage 11/24/2024 Encounter Details Date Type Department Care Team ([facility] st Contact Info) Description 11/24/2024 Telephone [facility] MEDICINE [address] [place], [place] [phone] Erika Harding MD [address] [place], [place] [phone] Nurse Triage Social History Tobacco Use Types Packs/Day Years [...] encounter Miscellaneous Notes * Telephone Encounter - Yoanna Pinto RN - 11/24/2024 9:14 AM EDT TC returned to pt. Pt. Reports 3 episodes of heavy rectal bleeding, once Thursday, then last night and this morning. Pt. Describes blood as bright red in color and turning toilet water red as well ason toilet paper. Pt. Denies abdominal Pain or rectal pain, and denies dizziness, lightheadedness orfatigue. Pt. Reports he has not been constipated and has not been straining with bowel movements. Pt. Had GI appointment at [facility] in August for routine colonoscopy screening appointment prior to procedure but procedure has yet to be scheduled, pt. Reports he has called 3-4 times and has left messages with no call back. Pt. Will try once more this morning. Agrees to appointment at 11am today with Dr. Beth casillas. Protocol Used: Rectal Bleeding (Adult) Protocol-Based Disposition: See in Office or Video Visit Today Video visit offer not recorded Positive Triage Questions: * Moderate rectal bleeding (small blood clots, passing blood without stool, or toilet water turns red) * Age > 50 years * All higher-acuity triage questions were negative * Telephone Encounter - Sierra Sharma - 11/24/2024 8:03 AM EDT Symptom: Stools - Blood Mixed In Outcome: Talk to a nurse or provider within 15 minutes Reason: Large amount of blood The caller accepted this outcome. Contact pt at [phone] Need training and development director documented in this encounter Plan of Treatment Upcoming Encounters Date Type Department Care Team (Late st Contact Info) Description 12/06/2024 10:30 AM EDT Office Visit [facility] MEDICINE [address] [place] [phone] Erika Harding MD [address] [place] [address] 01/17/2025 2:00 PM EST Clinical Support [facility] MEDICINE [address] [place] [address] Padma Mujica, REMBERTO documented as of this encounter Visit Diagnoses Not on filedocumented in this encounter Additional Health Concerns Assessment Noted Time PHQ-9 Depression Total Score: 0 04/14/19 25 9:45 AM EST documented as of this encounter Care Teams Experimental Rocket Sled Mechanic Relationship Specialty Start Date End Date Erika Harding MD [address] [place] [phone] PCP - General Family Medicine 11/28/15 documented as of this encounter
--- OUTSIDE RECORDS SUMMARY | 2024-11-25 10:19 | XMS_ITS | Encounter Summary ---
Author Organization [employer] Address [address] [facility] 7t [place] [address] Care Team Providers Care K 9 Police Officer Name Role Phone Erika Harding MD Primary Care Provider + Reason for Visit * Reason Onset Date Comments Med Refill 02/26/2022 Encounter Details Date Type Department Care Team ([facility] st Contact Info) Description 02/26/2022 Telephone [facility] MEDICINE [address] [place], [place] [phone] Erika Harding MD [address] [place], [place] [phone] Med Refill Social History Tobacco Use Types [...] PM EST Both medications were sent to [id number] * Telephone Encounter - Lew Dawn - 02/26/2022 1:44 PM EST Tc from pt requesting med refill Lisinopril 10 mg ) ( metoprolol xl 100 mg ) documented in this encounter Plan of Treatment Upcoming Encounters Date Type Department Care Team (Late st Contact Info) Description 12/06/2024 10:30 AM EDT Office Visit [facility] MEDICINE [address] [place] [phone] Erika Harding MD [address] [place] [address] 01/17/2025 2:00 PM EST Clinical Support [address] [address] Padma Mujica RN documented as of this encounter Visit Diagnoses Not on filedocumented in this encounter Care Teams K 9 Police Officer Relationship Specialty Start Date End Date Erika Harding MD [address] [place] [phone] PCP - General Family Medicine 11/28/15 documented as of this encounter
--- OUTSIDE RECORDS SUMMARY | 2024-11-25 10:19 | XMS_ITS | Encounter Summary ---
Author Organization [employer] Address 75 [facility] 7t [place] [address] Care Team Providers Care Atomic Spectroscopist Name Role Phone Erika Harding MD Primary Care Provider + Encounter Details Date Type Department Care Team (Latest Contact Info) Description 11/24/2024 Travel Social History Tobacco Use Types Packs/Day [...] Description 12/06/2024 10:30 AM EDT Office Visit [facility] MEDICINE [address] [place] [phone] Erika Harding MD [address] [place] [address] 01/17/2025 2:00 PM EST Clinical Support [facility] MEDICINE [address] [place] [phone] Padma Mujica RN documented as of this encounter Visit Diagnoses Not on filedocumented in this encounter Additional Health Concerns Assessment Noted Time PHQ-9 Depression Total Score: 0 04/14/19 25 9:45 AM EST documented as of this encounter Care Teams Atomic Spectroscopist Relationship Specialty Start Date End Date Erika Harding MD [address] [place] [phone] PCP - General Family Medicine 11/28/15 documented as of this encounter
--- OUTSIDE RECORDS SUMMARY | 2024-11-25 10:19 | XMS_ITS | Encounter Summary ---
Author Organization [employer] Address [address] [facility] 7t [place] [address] Care Team Providers Care Turbine Operator Name Role Phone Erika Harding MD Primary Care Provider + Reason for Visit * Reason Comments Med Refill Encounter Details Date Type Department Care Team (Late st Contact Info) Description 01/04/2024 Refill [facility] MEDICINE [address] [place], [place] [phone] Erika Harding MD [address] [place], [place] [phone] Social History Tobacco Use Types Packs/Day Years [...] Description 12/06/2024 10:30 AM EDT Office Visit [facility] MEDICINE [address] [place] [phone] Erika Harding MD [address] [place] [phone] 01/17/2025 2:00 PM EST Clinical Support [facility] MEDICINE [address] [place] [phone] Padma Mujica, REMBERTO documented as of this encounter Visit Diagnoses Not on filedocumented in this encounter Care Teams Turbine Operator Relationship Specialty Start Date End Date Erika Harding MD [address] [place] [phone] PCP - General Family Medicine 11/28/15 documented as of this encounter
--- OUTSIDE RECORDS SUMMARY | 2024-11-25 10:19 | XMS_ITS | Encounter Summary ---
Author Organization [employer] Address 75 [facility] 7t [place] [address] Care Team Providers Care Integrity Director Name Role Phone Erika Harding MD Primary Care Provider + Reason for Visit * Reason Onset Date Comments Call Back Request 12/18/2022 Encounter Details Date Type Department Care Team ([facility] Contact Info) Description 12/18/2022 Telephone [facility] MEDICINE [address] [place], [place] [phone] Erika Harding MD [address] [place], [place] [phone] Call Back Request Social History Tobacco Use [...] Description 12/06/2024 10:30 AM EDT Office Visit [address] [address] Erika Harding MD [address] [place] [address] 01/17/2025 2:00 PM EST Clinical Support [address] [address] Padma Mujica RN documented as of this encounter Visit Diagnoses Not on filedocumented in this encounter Care Teams Integrity Director Relationship Specialty Start Date End Date Erika Harding MD [address] [place] [phone] PCP - General Family Medicine 11/28/15 documented as of this encounter
--- OUTSIDE RECORDS SUMMARY | 2024-11-25 10:19 | XMS_ITS | Encounter Summary ---
Author Organization [employer] Address [address] [facility] 7t [place] [address] Care Team Providers Care Finish Cleaner Name Role Phone Erika Harding MD Primary Care Provider + Encounter Details Date Type Department Care Team ([facility] st Contact Info) Description 06/25/2023 Orders Only [facility] [address] [place], [place] [phone] Erika Harding MD [address] [place] [address] Social History Tobacco Use Types Packs/Day Years Used Date Smoking Tobacco: Every Day Cigarettes 0.5 40 Cigars Passive Smoke Exposure: Current Smokeless Tobacco: Never Comments:Smokes a few cigars a day Alcohol Use Standard Drinks/Week Comments Never 0 (1 standard drink = 0.6 oz pur e alcohol) Housing Stability Answer Date Recorded What is your housing situation today? I have genozandra nicole 04/17/[address] you [...] Description 12/06/2024 10:30 AM EDT Office Visit [address] [phone] Erika Harding MD [address] [place] [address] 01/17/2025 2:00 PM EST Clinical Support [address] [address] Padma Mujica, REMBERTO documented as of this encounter Procedures Procedure Name Priority Date/Time Associated Diagnosis Comments PULMONARY FUNCTION TESTING Routine 06/07/2023 2:09 PM EDT documented in this encounter Results * Pulmonary function testing (06/07/2023 2:09 PM EDT) Erika Harding MD PFT ORDERABLES Final Re sult documented in this encounter Visit Diagnoses Not on filedocumented in this encounter Care Teams Finish Cleaner Relationship Specialty Start Date End Date Erika Harding MD [address] [place] [phone] PCP - General Family Medicine 11/28/15 documented as of this encounter
--- OUTSIDE RECORDS SUMMARY | 2024-11-25 10:20 | XMS_ITS | Encounter Summary ---
Author Organization [employer] Address [address] [facility] 7t [place] [address] Care Team Providers Care [id number] Developer Name Role Phone Erika Harding MD Primary Care Provider + Encounter Details Date Type Department Care Team ([facility] Contact Info) Description 06/13/2022 Orders Only [facility] [address] [place], [place] [phone] Yessi Wayne LPN Social History Tobacco Use [...] Department Care Team (Late Contact Info) Description 12/06/2024 10:30 AM EDT Office Visit [facility] MEDICINE [address] [place], [place] [phone] Erika Harding MD [address] [place], [place] [phone] 01/17/2025 2:00 PM EST Clinical Support [facility] [address] [place] [address] Padma Mujica RN documented as of this encounter Visit Diagnoses Not on filedocumented in this encounter Care Teams As400 Developer Relationship Specialty Start Date End Date Erika Harding MD [address] [place] [address] PCP - General Family Medicine 11/28/15 documented as of this encounter
--- OUTSIDE RECORDS SUMMARY | 2024-11-25 10:20 | XMS_ITS | Clinical Summary ---
Author Organization [employer] Address [address] [facility] 7t [place] [address] Care Team Providers Care Director Of Social Services Name Role Phone Erika Harding MD Primary [...] mouth every 2 (two) hours. 022 Active tamsulosin (Flomax) 0.4 MG 24 hr capsule Take 1 capsule (0.4 mg) by mouth Once per day. 90 capsule 024 Active hydrOXYzine HCl (Atarax) 25 MG tabletIndications :Localized superficial swelling of skin Take 1 tablet (25 mg) by mouth if needed each day for anxiety (for labs) for up to 10 doses. 10 tablet 024 Active Menthol, Topical Analgesic, (Icy Hot) 5 % patch Use 1 patch /d to affected area prn pain 30 patch 024 Active lidocaine (Lidoderm) 5 % patchIndications: Spinal stenosis of lumbar region without neurogenic claudication Apply 1 patch topically Once per day. Remove & discard patch within 12 hours or as directed by . 90 patch 3 024 2024 Active albuterol 108 (90 Base) MCG/ACT inhaler INHALE 2 PUFFS EVERY 4 HOURS IF NEEDED FOR WHEEZING. 18 g 5 024 Active Arnuity Ellipta 100 MCG/ACT inhalerIndication s:Moderate persistent asthma without complication INHALE 1 PUFF IN THE MORNING. RINSE MOUTH WITH WATER AFTER USE TO REDUCE AFTERTASTE AND INCIDENCE OF CANDIDIASIS. DO NOT SWALLOW. 30 each 025 Active acetaminophen (Tylenol) 500 MG tabletIndications :Chronic [...] the same time. 30 patch 025 Active metoprolol succinate XL (Toprol-XL) 100 MG 24 hr tabletIndications :HTN (hypertension), benign TAKE 1 TABLET BY MOUTH EVERY DAY IN THE MORNING 90 tablet 1 025 Active lisinopril-hydroC HLOROthiazide 20-25 MG tablet TAKE 1 TABLET BY MOUTH ONCE PER DAY. (ALONG WITH LISINOPRIL 10MG) 90 tablet 1 025 Active lisinopril 10 MG tabletIndications :Essential hypertension TAKE 1 TABLET BY MOUTH EVERY DAY (ALONG WITH LISINOPRIL/HY DROCHLOROTHIA ZIDE) 90 tablet 1 025 Active pregabalin (Lyrica) 75 MG capsule TAKE 1 CAPSULE BY MOUTH 2 TIMES DAILY. 60 capsule 1 025 Active oxyCODONE (Roxicodone) 5 MG immediate release tabletIndications :Chronic bilateral low back pain with right-sided sciatica Take 1 tablet (5 mg) by mouth every 12 (twelve) hours if needed for severe pain for up to 28 days. 56 tablet 025 2024 Active hydrocortisone (Proctosol HC) 2.5 % rectal creamIndications: BRBPR (bright red blood per rectum) Insert into the rectum 2 times daily. 28 g 025 Active oxyCODONE (Roxicodone) 5 MG immediate release tabletIndications :Chronic bilateral low back pain with right-sided sciatica Take 1 tablet (5 mg) by mouth every 12 (twelve) hours if needed for severe pain for up to 28 days. Do not start before October 14, 2024. 56 tablet 025 2024 Discontinued(R eorder (will not trigger notification to Pharmacy)) Active Problems Problem Noted Date Diagnosed Date BRBPR (bright red blood per rectum) 11/24/2024 Assessment & Plan (11/24/2024 11:22 AM EDT): Likely due to internal hemorrhoids. Most common [...] care physician scheduled for December 06, 2024. Screening for colorectal cancer 04/14/2024 Assessment & [...] life style modifications, diet and referral to accounting specialist. Recommended to decrease soda and sugary [...] use after work and follow up with [facility]. Advised to use Tylenol Q6hrs in [...] many years. 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 Long-term current use of opiate analgesic 2022 Overview (07/18/2022): DC on 2022 Assessment & Plan (05/14/2022 1:12 PM EDT): off narcotics for 3 weeks, self detoxed today's utox is negative there is no contraindiciation to drive at this time, will right a letter for work Allergic conjunctivitis of both eyes 05/14/2022 Assessment & Plan (05/14/2022 1:12 PM EDT): Use ketotifen eye dfrops and loratidine FU with enterprise sales person. Moderate persistent asthma without complication 04/09/2022 Assessment [...] spine/foraminal stenosis: MRI L-spine on 07/01/23 at [facility] Assessment & Plan (05/04/2024 1:11 PM EDT): [...] to have 44. Continue to FU with [facility] nurse. Assessment & Plan (07/01/2023 11:50 AM [...] vigilance U-Tox and he will fu with [facility] nurse for new intake He has been [...] Encounters Date Type Department Care Team Description 11/24/2024 11:00 AM EDT Office Visit [address] [address] Rafat Liu MD BRBPR (bright red blood per rectum) (Primary Dx) 11/24/2024 Travel 11/24/[address] [address] Erika Harding MD Nurse Triage 11/11/[address] [address] Erika Harding MD Chronic bilateral low back pain with right-sided sciatica 10/18/2024 2:00 PM EDT Clinical Support [address] [address] Padma Mujica RN Long-term current use of opiate analgesic (Primary Dx) 10/18/[address] [address] Padma Mujica RN BPI Scoring 10/18/2024 Travel 10/18/[address] [address] Erika Harding MD Appointment Request 10/12/2024 Refill [facility] [address] [place] [address] Erika Harding MD Chronic bilateral low back pain with right-sided sciatica 09/29/2024 Patient Outreach [facility] [address] [place] [address] Erika Harding MD Pre-visit Planning ([facility] screening completed on 03/31/24 ) 09/21/2024 Refill [facility] [address] [place] [address] Erika Harding MD 09/14/2024 Refill [facility] [address] [place] [phone] Erika Harding MD Chronic bilateral low back [...] your housing situation today? I have geno niocle 04/17/[address] you li [...] oz) 11/24/2024 10:48 A M EDT Height 182.9 cm (6') 05/04/2024 10:04 AM EDT Body Mass Index 36.4 05/04/2024 10:04 AM EDT Plan of Treatment Upcoming Encounters Date Type Department Care Team (Late st Contact Info) Description 12/06/2024 10:30 AM EDT Office Visit [facility] [address] [place] [phone] Erika Harding MD [address] [place] [address] 01/17/2025 2:00 PM EST Clinical Support [facility] [address] [place] [address] Padma Mujica, REMBERTO Health Maintenance Due Date Last Done Comments CT Colonography 1970 Colonoscopy 1970 Colorectal Cancer Screening 1970 Dental Prophylaxis 1970 FIT DNA/Cologuard 1970 FIT 1970 FOBT 1970 HIV Screening 1970 Sigmoidoscopy 1970 Disability Screening 1970 Hepatitis C Screening 1988 DTaP/Tdap/Td Vaccines (1 - Tdap) 1989 Hepatitis B Vaccines (1 of 3 - 19+ 3-dose series) 1989 Pneumococcal Vaccine: 50+ Years (1 of 2 - PCV) 1989 Zoster Vaccines (1 of 2) 2020 Dental Oral Exam 09/10/2022 03/12/2022 Dental X-Ray: Bitewings 03/13/2023 03/12/19 23, 02/19/2022 COVID-19 Vaccine (1 - 2023-2 5 season) 2024 Influenza Vaccine (#1) 2024 Dental X-Ray: Full Mouth 03/13/2025 03/12/2022 SDOH Screening 03/31/2025 03/31/2024 Alcohol/Substance Use Screening 04/14/2025 04/14/2024 Depression Screening 04/14/2025 04/14/2024, 04/14/2024 Lung Cancer Screening 06/04/2025 06/04/2024 Tobacco Screening 11/24/2025 11/24/2024 Lipid Panel 04/08/2029 04/08/2024 RSV Patients and [...] Comments POCT MANUEL-14 URINE DRUG SCREEN Routine 10/18/2024 12:38 PM EDT Long-term current use of opiate analgesic LDCT LUNG SCREENING Routine 06/04/2024 9 :15 AM EDT LIPID PANEL WITH REFLEX TO DIRECT LDL Routine 04/08/2024 9:55 AM EST Essential hypertension INTRAORAL - COMPLETE SERIES OF RADIOGRAPHIC IMAGES Routine 03/12/2022 9:30 AM EST Periodontal disease COMPREHENSIVE ORAL EVALUATION - NEW OR ESTABLISHED PATIENT Routine 03/12/2022 9:30 AM EST Periodontal disease from Last 3 Months or Most Recently Relevant to Health Maintenance Results * POCT MANUEL-14 Urine Drug Screen (10/18/2024 12:38 PM EDT) THC Negative Negative Cocaine Screen, Urine Negative Negative Opiate Screen, Urine Negative Negative Methamphetamine Screen Urine Negative Negative Amphetamine Screen, Urine Negative Negative Benzodiazepines Screen, Urine Negative Negative Barbiturate Screen, Urine Negative Negative Methadone Screen, Urine Negative Negative Buprenophine Screen, Urine Negative Negative TCA, Urine Negative Negative MDMA Urine Negative Negative ng/mL Oxycodone Screen, Urine Positive Negative Phencyclidine (PCP), Urine Negative Negative Propoxyphene, Urine Negative Negative Fentanyl, Urine Negative Negative Urine Urine specimen obtained by clean catch procedure / Unknown 10/18/2024 12:38 PM EDT Narrative Padma Mujica RN - 10/18/2024 12:38 PM EDT UTOX cup Lot#[id number] Exp. 11/22/25 Internal Pass Control us Erika Harding MD POINT OF CARE TEST ENTER /EDIT ORDERABLES Final Result * CT Lung Screening Low dose (06/04/2024 9:15 AM EDT) Anatomical Region Laterality Modality Lung Computed Tomogra phy 06/04/2024 9:15 AM EDT Narrative 06/04/2024 9:17 AM EDT [address] [address] [address] Scan Report Signed Patient: Jeremy Barros MR#: [id number] : 1970 Acct:[id number] Age/Sex: 53 / M ADM Date: 06/03/24 Loc: HO.CT Attending Dr: Jennifer Marcum PA-C Ordering Physician: Jennifer Marcum PA-C Date of Service: 06/03/24 Procedure(s): CT lung screening Accession Number(s): [id number] cc: Erika Harding MD; Jennifer Marcum PA-C Report Number: [id number]: Total DLP = 117.00 mGy-cm CLINICAL HISTORY: Z87.891 - Personal history of nicotine dependence CT lung cancer screening (LDCT) Comparison: None Technique: Axial CT images of the chest using low-dose technique. Referring provider counseled the patient on shared decision-making for LDCT screening. Additional counseling was provided on smoking cessation. Effective radiation dose total: DLP 107.7 mGycm, CTDIvol 3.3 mGy. Findings: Lung: Trachea and central bronchi are patent. No dense consolidation, pleural effusion or pneumothorax. Noncalcified oval nodule in the inferior right upper lobe along the fissure measuring 6 mm, possibly an intrapulmonary lymph node. 1 mm right upper lobe pulmonary nodule on image 43 of series 4. Coronary artery calcifications: None appreciated Nonaneurysmal aorta. Mediastinal structures are unremarkable. No adenopathy. No chest wall lesions or thyroid nodules appreciated. Limited upper abdomen: Hepatic steatosis. Other: None Impression: Pulmonary nodules with a benign appearance or behavior. No acute cardiopulmonary disease. Lung rads category 2 Category 1: Normal; continue annual screening Category 2: Benign appearance or behavior, continue annual screening Category 3: Probably benign, [address] recommended Category 4A: Suspicious, [address] recommended; may consider PET/CT Category 4B: Suspicious, Additional diagnostics and/or tissue sampling recommended Category 4X: Suspicious, Additional diagnostics and/or tissue sampling recommended Category 0: Recalls (incomplete screen due to Incomplete coverage, Noise, Respiratory motion, Expiration, Obscured by acute abnormality) This document has been electronically signed by: Connie Gan MD on 06/04/2024 09:15:44 Dictated By: Connie Gan MD Signed By: <Electronically signed by Connie Gan MD in OV> 06/04/24915 DD/ 4 TD/TT: 06/04/24914 Automation Clerk: Procedure Note Donotuseinterpreter, Image - 06/04/[address] [address] [address] Scan Report Signed Patient: Jeremy Barros MMR#: [id number] : 1970Acct:[id number] Age/Sex: 53 / MADM Date: 06/03/24 Loc: .CT Attending Dr: Jennifer Marcum PA-C Ordering Physician: Jennifer Marcum PA-C Date of Service: 06/03/24 Procedure(s): CT lung screening Accession Number(s): [id number] cc: Erika Harding MD; Jennifer Marcum PA-C Report Number: [id number]: Total DLP = 117.00 mGy-cm CLINICAL HISTORY: Z87.891 - Personal history of nicotine dependence CT lung cancer screening (LDCT) Comparison: None Technique: Axial CT images of the chest using low-dose technique. Referring provider counseled the patient on shared decision-making for LDCT screening. Additional counseling was provided on smoking cessation. Effective radiation dose total: DLP 107.7 mGycm, CTDIvol 3.3 mGy. Findings: Lung: Trachea and central bronchi are patent. No dense consolidation, pleural effusion or pneumothorax. Noncalcified oval nodule in the inferior right upper lobe along the fissure measuring 6 mm, possibly an intrapulmonary lymph node. 1 mm right upper lobe pulmonary nodule on image 43 of series 4. Coronary artery calcifications: None appreciated Nonaneurysmal aorta. Mediastinal structures are unremarkable. No adenopathy. No chest wall lesions or thyroid nodules appreciated. Limited upper abdomen: Hepatic steatosis. Other: None Impression: Pulmonary nodules with a benign appearance or behavior. No acute cardiopulmonary disease. Lung rads category 2 Category 1: Normal; continue annual screening Category 2: Benign appearance or behavior, continue annual screening Category 3: Probably benign, [address] recommended Category 4A: Suspicious, [address] recommended; may consider PET/CT Category 4B: Suspicious, Additional diagnostics and/or tissue sampling recommended Category 4X: Suspicious, Additional diagnostics and/or tissue sampling recommended Category 0: Recalls (incomplete screen due to Incomplete coverage, Noise, Respiratory motion, Expiration, Obscured by acute abnormality) This document has been electronically signed by: Connie Gan MD on 06/04/2024 09:15:44 Dictated By: Connie Gan MD Signed By: <Electronically signed by Connie Gan MD in OV> 06/04/24915 DD/ 4 TD/TT: 06/04/24914 Automation Clerk: us [facility] External Provider IMG CT PROCEDURES Final Result * (ABNORMAL) Lipid Panel with Reflex to Direct LDL (04/08/2024 9:55 AM EST) Triglycerides 125 <150 mg/dL [facility] Comment:Desirable Triglyceri de: less than 150 mg/dLBorderline High Triglyceride 150-199 mg/dLHigh Triglyceride: 200-499 mg/dLVery High Triglyceride: greater than or equal to 5OO mg/dL Cholesterol 151 <200 mg/dL [facility] Comment:Desirable Cholestero l: less than 200 mg/dLBorderline High Cholesterol: 200-239 mg/dLHigh Cholesterol: greater than 239 mg/dL LDL Cholesterol Calculated 97 <100 mg/dL [facility] Comment:Desirable LDL: less than 100 mg/dLNear Optimal/Above Optimal LDL: 110- 129 mg/dLBorderline High LDL: 130-159 mg/dLHigh LDL: 160-189 mg/dLVery High LDL: greater than or equal to 190 mg/dL HDL Cholesterol 29(L) >40 mg/dL [facility] Comment:Desirable HDL: great er than 40 mg/dL Note: This HDL assay may give artificially low results in patients with liver disease. Blood 04/08/2024 9:55 AM EST 04/08/2024 9:55 AM EST Erika Harding MD LAB BLOOD ORDERABLES Fin al Result [facility] [address] [place] [address] [phone] from Last 3 Months or Most Recently Relevant to [place] [id number] Care Teams Director Of Social Services Relationship Specialty Start Date End Date Erika Harding MD [address] [facility] [place] [address] PCP - General Family Medicine 11/28/15
--- OUTSIDE RECORDS SUMMARY | 2024-11-25 10:20 | XMS_ITS | Encounter Summary ---
Author Organization [employer] Address [address] [facility] 7t [place] [address] Care Team Providers Care Deputy Director Of Nursing Name Role Phone Erika Harding MD Primary Care Provider + Encounter Details Date Type Department Care Team (Late Contact Info) Description 04/18/2022 Abstract [facility] ADULT DENTAL [address] [place] [address] Heladio Alberts, SANYA [address] [place], [place] [phone] Social History Tobacco Use Types Packs/Day Years [...] Description 12/06/2024 10:30 AM EDT Office Visit [facility] MEDICINE [address] [place] [address] Erika Harding MD [address] [place] [address] 01/17/2025 2:00 PM EST Clinical Support [facility] [address] [place] [phone] Padma Mujica RN documented as of this encounter Visit Diagnoses Not on filedocumented in this encounter Care Teams Deputy Director Of Nursing Relationship Specialty Start Date End Date Erika Harding MD [address] [place] [phone] PCP - General Family Medicine 11/28/15 documented as of this encounter
--- OUTSIDE RECORDS SUMMARY | 2024-11-25 10:20 | XMS_ITS | Clinical Summary ---
Author Organization [address] [facility] Address [address] [place] [address] Phone Care Team Providers Care Manager Bakery Name Role Phone Giovani Tinoco MD Primary Care Provider [phone] Allergies Active Allergy Reactions Criticality Noted Date [...] to 38.9 in adult 02/23/2024 Cocaine abuse ([facility] V24, [facility] V28) 014 Overview (01/06/2024): See uds 02/2013 Degeneration of cervical intervertebral disc Degenerative lumbar disc 07/07/2012 Allergic rhinitis 07/07/2012 HTN (hypertension) 05/12/2012 Hypothyroidism 05/12/2012 Overview (01/06/2024): ? diagnosis correct Asthma 05/12/2012 Surgical History Surgery Date Site/Laterality Comments APPENDECTOMY -1989 PROCEDURE: CO APPENDEC INDICATED PURPOSE OTH MAJOR PX NOT [...] Health Maintenance Due Date Last Done Comments Colorectal Cancer Screening: Colonoscopy 1970 DTaP,Tdap,and Td Vaccines (1 - Tdap) 1989 Hepatitis A Vaccines (1 of 2 - Risk 2-dose series) 1989 Hepatitis B Vaccines (1 of 3 - 19+ 3-dose series) 1989 Pneumococcal Vaccine: 50+ Ye ars (1 of 2 - PCV) 1989 Zoster Vaccines (1 of 2) 2020 Cholesterol Screening (Lipid Panel) 01/19/2022 HIV Screening 01/19/2022 Hepatitis C Screening 01/19/2022 Lung Cancer Screening (Low D ose CT) 01/19/2022 Social Influencers of Health Screening 01/19/2022 Depression Screening 02/17/2024 COVID-19 Vaccine (1 - 2023-2 5 season) 2024 Influenza Vaccine (#1) 2024 Hypertension/CHF/CAD Annual BMP Blood Test 04/08/2025 04/08/2024 RSV Immunization Adult Patie nts (1 - 1-dose 75+ series) 2045 HIB [...] Insurance MEDICARE MEDICAID - [place] Care Teams Manager Bakery Relationship Specialty Start Date End Date Giovani Tinoco MD [address] [place] [phone] PCP - General Internal Medicine 12/28/23
--- OUTSIDE RECORDS SUMMARY | 2024-11-25 10:20 | XMS_ITS | Encounter Summary ---
Author Organization [employer] Address [address] [place] [address] 7t [place] [address] Care Team Providers Care Outreach Assistant Name Role Phone Erika Harding MD Primary Care Provider + Encounter Details Date Type Department Care Team (Late Contact Info) Description 03/27/2022 Abstract [facility] ADULT DENTAL [address] [place], [place] [phone] Jeremy Morse DDS [address] [place], [place] [phone] Social History Tobacco Use Types Packs/Day Years [...] Description 12/06/2024 10:30 AM EDT Office Visit [facility] MED[facility] [address] [place] [address] Erika Harding MD [address] [place], [place] [phone] 01/17/2025 2:00 PM EST Clinical Support [facility] [address] [place], [place] [phone] Padma Mujica, REMBERTO documented as of this encounter Visit Diagnoses Not on filedocumented in this encounter Care Teams Outreach Assistant Relationship Specialty Start Date End Date Erika Harding MD [address] [place] [address] PCP - General Family Medicine 11/28/15 documented as of this encounter
== END 2024-11-25 09:39 | disposition home or self-care (01) ==
LOC: HO.LAB 09:38
PROVIDERS: PCP Internal Medicine; Visit Provider Internal Medicine
DX: Z13.89 Encounter for screening for other disorder (principal)

== ENCOUNTER 2025-01-24 07:34 | Day surgery (SDC) | payer MEDICAID, SELFPAY ==
--- OUTSIDE RECORDS SUMMARY | 2024-12-22 08:13 | XMS_ITS | Encounter Summary ---
Author Organization [employer] Address [address] [facility] [address]t [place] [address] Care Team Providers Care Opener Verifier [employer] Name Role Phone Erika Harding MD Primary Care Provider + Encounter Details Date Type Department Care Team ([facility] st Contact Info) Description 06/25/2023 Orders Only [facility] [address] [place], [place] [phone] Erika Harding MD [address] [place] [address] Social History Tobacco Use Types Packs/Day Years [...] Care Team (Late st Contact Info) Description 01/17/2025 2:00 PM EST Clinical Support [facility] MEDICINE [address] [place], [place] [phone] Padma Mujica RN 04/14/2025 2:00 PM EST Office Visit [facility]OMETRY [address] [place] [address] Flower Chavez, OD [address] [place] [address] documented as of this encounter Procedures Procedure Name Priority Date/Time Associated Diagnosis Comments PULMONARY FUNCTION TESTING Routine 06/07/2023 2:09 PM EDT documented in this encounter Results * Pulmonary function testing (06/07/2023 2:09 PM EDT) Erika Harding MD PFT ORDERABLES Final Re sult documented in this encounter Visit Diagnoses Not on filedocumented in this encounter Care Teams Opener Verifier [employer] Relationship Specialty Start Date End Date Erika Harding MD [address] [place] [address] PCP - General Family Medicine 11/28/15 documented as of this encounter
--- OUTSIDE RECORDS SUMMARY | 2024-12-22 08:13 | XMS_ITS | Encounter Summary ---
Author Organization [employer] Address [address] [facility] [address]t [place] [address] Care Team Providers Care Breast Puller Name Role Phone Erika Harding MD Primary Care Provider + Reason for Visit * Reason Onset Date Comments Call Back Request 12/18/2022 Encounter Details Date Type Department Care Team ([facility] Contact Info) Description 12/18/2022 Telephone [facility] [address] [place], [place] [phone] Erika Harding MD [address] [place], [place] [phone] Call Back Request Social History Tobacco Use [...] Description 01/17/2025 2:00 PM EST Clinical Support [facility] [address] [place] [address] Padma Mujica RN 04/14/2025 2:00 PM EST Office Visit [facility] OPTOMETRY [address] [place] [address] Flower Chavez OD [address] [place] [address] documented as of this encounter Visit Diagnoses Not on filedocumented in this encounter Care Teams Breast Puller Relationship Specialty Start Date End Date Erika Harding MD [address] [place] [address] PCP - General Family Medicine 11/28/15 documented as of this encounter
--- OUTSIDE RECORDS SUMMARY | 2024-12-22 08:14 | XMS_ITS | Encounter Summary ---
Author Organization [employer] Address 75 [facility] 7t [place] [address] Care Team Providers Care Alumni Relations Manager Name Role Phone Erika Harding MD Primary Care Provider + Reason for Visit * Reason Comments Med Refill Encounter Details Date Type Department Care Team (Late st Contact Info) Description 01/04/2024 Refill [facility] MEDICINE [address] [place], [place] [phone] Erika Harding MD 230 [place], [place] [phone] Social History Tobacco Use Types Packs/Day Years [...] Description 01/17/2025 2:00 PM EST Clinical Support [facility] MEDICINE [address] [place] [address] Padma Mujica RN 04/14/2025 2:00 PM EST Office Visit [facility] OPTOMETRY [address] [place] [address] Flower Chavez, OD [address] [place] [address] documented as of this encounter Visit Diagnoses Not on filedocumented in this encounter Care Teams Alumni Relations Manager Relationship Specialty Start Date End Date Erika Harding MD 230 [place] [address] PCP - General Family Medicine 11/28/15 documented as of this encounter
--- OUTSIDE RECORDS SUMMARY | 2024-12-22 08:14 | XMS_ITS | Encounter Summary ---
Author Organization [employer] Address 75 [facility] 7t [place] [address] Care Team Providers Care Commodities Trader Name Role Phone Erika Harding MD Primary Care Provider + Reason for Visit * Reason Comments Med Change Request Encounter Details Date Type Department Care Team ([facility] st Contact Info) Description 03/02/2024 Refill [facility] MEDICINE 230 [place], [place] [phone] Erika Harding MD [address] [place], [place] [phone] Social History Tobacco Use Types Packs/Day Years [...] Support [facility] MEDICINE [address] [place] [address] Padma Mujica RN 04/14/2025 2:00 PM EST Office Visit [facility] OPTOMETRY [address] [place] [address] Flower Chavez, OD 267 [place] [address] documented as of this encounter Visit Diagnoses Not on filedocumented in this encounter Care Teams Commodities Trader Relationship Specialty Start Date End Date Erika Harding MD [address] [place] [address] PCP - General Family Medicine 11/28/15 documented as of this encounter
--- OUTSIDE RECORDS SUMMARY | 2024-12-22 08:15 | XMS_ITS | Clinical Summary ---
Author Organization [employer] Address 75 [facility] 7t [place] [address] Care Team Providers Care Auto Repair Shop Manager Name Role Phone Erika Harding MD [...] to 10 doses. 10 tablet 024 Active Arnuity Ellipta 100 MCG/ACT inhalerIndication s:Moderate persistent asthma without complication INHALE 1 PUFF IN THE MORNING. RINSE MOUTH WITH WATER AFTER USE TO REDUCE AFTERTASTE AND INCIDENCE OF CANDIDIASIS. DO NOT SWALLOW. 30 each 11 025 Active acetaminophen (Tylenol) 500 MG tabletIndications [...] the same time. 30 patch 025 Active lisinopril-hydroC HLOROthiazide 20-25 MG tablet TAKE 1 TABLET BY MOUTH ONCE PER DAY. (ALONG WITH LISINOPRIL 10MG) 90 tablet 1 025 Active albuterol 108 (90 Base) MCG/ACT inhaler Inhale 2 puffs every 6 (six) hours if needed for wheezing. 18 g 5 025 Active lidocaine (Lidoderm) 5 % patchIndications: Spinal stenosis of lumbar region without neurogenic claudication Apply 1 patch topically Once per day. Remove & discard patch within 12 hours or as directed by MD. 90 patch 3 025 2025 Active lisinopril 10 MG tabletIndications :Essential hypertension TAKE 1 TABLET BY MOUTH EVERY DAY (along with lisinopril/hy drochlorothia zide) 90 tablet 1 025 Active Menthol, Topical Analgesic, (Icy Hot) 5 % patch Use 1 patch /d to affected area prn pain 30 patch 025 Active metoprolol succinate XL (Toprol-XL) 100 MG 24 hr tabletIndications :HTN (hypertension), benign Take 1 tablet (100 mg) by mouth in the morning. Do not crush or chew. 90 tablet 1 025 Active oxyCODONE (Roxicodone) 5 MG immediate release tabletIndications :Chronic bilateral low back pain with right-sided sciatica Take 1 tablet (5 mg) by mouth every 12 (twelve) hours if needed for severe pain for up to 28 days. 56 tablet 025 2024 Active pregabalin (Lyrica) 75 MG capsule Take 1 capsule (75 mg) by mouth 2 times daily. 60 capsule 1 025 Active Menthol, Topical Analgesic, (Icy Hot) 5 % patch Use 1 patch /d to affected area prn pain 30 patch 024 2024 Discontinued(R eorder (will not trigger notification to Pharmacy)) lidocaine (Lidoderm) 5 % patchIndications: Spinal stenosis of lumbar region without neurogenic claudication Apply 1 patch topically Once per day. Remove & discard patch within 12 hours or as directed by . 90 patch 3 024 2024 Discontinued(R eorder (will not trigger notification to Pharmacy)) albuterol 108 (90 Base) MCG/ACT inhaler INHALE 2 PUFFS EVERY 4 HOURS IF NEEDED FOR WHEEZING. 18 g 5 024 2024 Discontinued(R eorder (will not trigger notification to Pharmacy)) metoprolol succinate XL (Toprol-XL) 100 MG 24 hr tabletIndications :HTN (hypertension), benign TAKE 1 TABLET BY MOUTH EVERY DAY IN THE MORNING 90 tablet 1 025 2024 Discontinued(R eorder (will not trigger notification to Pharmacy)) lisinopril-hydroC HLOROthiazide 20-25 MG tablet TAKE 1 TABLET BY MOUTH ONCE PER DAY. (ALONG WITH LISINOPRIL 10MG) 90 tablet 1 025 2024 Discontinued lisinopril 10 MG tabletIndications :Essential hypertension TAKE 1 TABLET BY MOUTH EVERY DAY (ALONG WITH LISINOPRIL/HY DROCHLOROTHIA ZIDE) 90 tablet 1 025 2024 Discontinued(R eorder (will not trigger notification to Pharmacy)) pregabalin (Lyrica) 75 MG capsule TAKE 1 CAPSULE BY MOUTH 2 TIMES DAILY. 60 capsule 1 025 2024 Discontinued(R eorder (will not trigger notification to Pharmacy)) oxyCODONE (Roxicodone) 5 MG immediate release tabletIndications :Chronic bilateral low back pain with right-sided sciatica Take 1 tablet (5 mg) by mouth every 12 (twelve) hours if needed for severe pain for up to 28 days. 56 tablet 025 2024 Discontinued(R eorder (will not trigger notification to Pharmacy)) hydrocortisone (Proctosol HC) 2.5 % rectal creamIndications: BRBPR (bright red blood per rectum) Insert into the rectum 2 times daily. 28 g 025 2024 Discontinued(T herapy completed) Active Problems Problem Noted Date Diagnosed Date Lateral epicondylitis of right elbow 12/06/2024 Assessment & Plan (12/06/2024 3:40 PM EDT): Take Tylenol and lidocaine patch as needed Advised to use elbow band Refer to OT BRBPR (bright red blood per rectum) 11/24/2024 [...] life style modifications, diet and referral to maintenance specialist. Recommended to decrease soda and sugary [...] use after work and follow up with CUSTOMER SERVICE REPRESENTATIVE clinic. Advised to use Tylenol Q6hrs in [...] many years. We discussed about short and group home options, he's aware that opiates may not [...] ketotifen eye dfrops and loratidine FU with firmware software verification engineer. Moderate persistent asthma without complication 04/09/2022 Assessment [...] 03/09/19 Primary hypertension 12/06/2015 Assessment & Plan (12/06/2024 3:34 PM EDT): Borderline controlled. Compliant w/meds Continue lisinopril/hctz + amlodipine same dose Counseled re low salt diet/increase moderate physical activity. Advised regarding weight reduction, better pain control. Follow-up with me in 3 months Non smoking patient. Assessment & Plan (04/14/2024 10:27 AM EST): [...] spine/foraminal stenosis: MRI L-spine on 07/01/23 at [facility] Assessment & Plan (12/06/2024 3:36 PM EDT): Exacerbation likely related to weight gain and sedentarism. I discussed with patient use of Opioid medication BID only, avoid extra doses. He will restart Tylenol with Lyrica for low back pain exacerbation especially with radiculopathy. He can also take Cyclobenzaprine PRN for pain exacerbation when Oxycodone is not due. Counseled about quitting smoking, he has prescription of nicotine patches at pharmacy. We discussed about weight reduction, he does not want follow-up with PT or pain clinic at this time Continue to FU with CUSTOMER SERVICE REPRESENTATIVE nurse. Assessment & Plan (05/04/2024 1:11 PM EDT): [...] to have 44. Continue to FU with CUSTOMER SERVICE REPRESENTATIVE nurse. Assessment & Plan (07/01/2023 11:50 AM [...] vigilance U-Tox and he will fu with CUSTOMER SERVICE REPRESENTATIVE nurse for new intake He has been [...] Encounters Date Type Department Care Team Description 12/20/2024 Telephone [facility] MEDIC[facility] [address] [place] [phone] Erika Harding MD Prior Authorization ([facility]: Lidocaine 5% Patch) 12/06/2024 10:30 AM EDT Office Visit [facility] [address] [place] [address] Erika Harding MD Lateral epicondylitis of right elbow (Primary Dx); Chronic bilateral low back pain with right-sided sciatica; Primary hypertension; Spinal stenosis of lumbar region without neurogenic claudication; Blurred vision, bilateral; Essential hypertension; HTN (hypertension), benign 12/06/2024 Travel 12/05/[address] [address] Erika Harding MD Chart Prep 12/01/[address] [address] Erika Harding MD 11/24/2024 11:00 AM EDT Office Visit [address] [address] Rafat Liu MD BRBPR (bright red blood per rectum) (Primary Dx) 11/24/2024 Travel 11/24/[address] [address] Erika Harding MD Nurse Triage 11/11/[address] [address] Erika Harding MD Chronic bilateral low back pain with right-sided sciatica 10/18/2024 2:00 PM EDT Clinical Support [address] [address] Padma Mujica, REMBERTO Long-term current use of opiate analgesic (Primary Dx) 10/18/[address] [address] Padma Mujica, REMBERTO BPI Scoring 10/18/2024 Travel 10/18/[address] [address] Erika Harding MD Appointment Request 10/12/[address] [phone] Erika Harding MD Chronic bilateral low back pain with right-sided sciatica 09/29/2024 Patient Outreach [facility] [address] [place] [address] Erika Harding MD Pre-visit Planning ([facility] screening completed on 03/31/24 ) 09/21/2024 Refill [facility] [address] [place] [address] Erika Harding MD from Last 3 Months Social History Tobacco Use Types Packs/Day Years Used Date Smoking Tobacco: Every Day Cigarettes 0.5 40 Last attempted to quit: 03/28/2024 Cigars Passive Smoke Exposure: Current Smokeless Tobacco: Never Tobacco Cessation:Ready to Q uit: Not Asked; Counseling Given: Not Answered Comments:Smokes a few cigars a day. Smoked 15 cig/d x 39y and 1.5cig x 1y, quit circa 02/2024 Alcohol Use Standard Drinks/Week Comments Never 0 (1 standard drink = 0.6 oz pur e alcohol) Depression Answer Date Recorded Patient Health Questionnaire-9 Score 0 12/06/2024 Patient Health Questionnaire-9 Score 0 12/06/2024 Last PHQ-9: Questionnaire Data Not on file 1 Housing Stability Answer Date Recorded What is [...] Date Recorded Patient Health Questionnaire-2 Score 0 12/06/2024 Internet Access Answer Date Recorded Internet Access [...] Sign Reading Time Taken Comments Blood Pressure 140/85 12/06/2024 10:41 AM EDT Pulse 74 12/06/2024 10:07 AM EDT Temperature 36.4 C (97.6 F) 12/06/2024 10:07 AM EDT Respiratory Rate 20 12/06/2024 10:07 AM EDT Oxygen Saturation 95% 11/24/2024 10:48 AM EDT Inhaled Oxygen Concentration - - Weight 121 kg (266 lb 6 oz) 12/06/2024 10:07 AM EDT Height 182.9 cm (6') 12/06/2024 10:07 AM EDT Body Mass Index 36.13 12/06/2024 10:07 AM EDT Plan of Treatment Upcoming Encounters Date Type Department Care Team (Late st Contact Info) Description 01/17/2025 2:00 PM EST Clinical Support [facility] MEDICINE [address] [place] [address] Padma Mujica, REMBERTO 04/14/2025 2:00 PM EST Office Visit [facility] OPTOMETRY [address] [place] [address] Flower Chavez, OD [address] [place] [address] Health Maintenance Due Date Last Done Comments [...] 03/31/2025 03/31/2024 Alcohol/Substance Use Screening 04/14/2025 04/14/2024 Lung Cancer Screening 06/04/2025 06/04/2024 Depression Screening 12/06/2025 12/06/2024, 12/06/2024 Disability Screening 12/06/2025 12/06/2024 Tobacco Screening 12/06/2025 12/06/2024 Lipid Panel 04/08/2029 04/08/2024 RSV Patients and [...] procedure / Unknown 10/18/2024 12:38 PM EDT Padma Herzog, RN - 10/18/2024 12:38 PM EDT UTOX cup Lot#[id number] Exp. 11/22/25 Internal Pass Control Erika Harding MD POINT OF CARE TEST ENTER /EDIT ORDERABLES Final Result * CT Lung Screening Low dose (06/04/2024 9:15 AM EDT) Anatomical Region Laterality Modality Lung Computed Tomogra phy 06/04/2024 9:15 AM EDT Narrative 06/04/2024 9:17 AM EDT [address] [address] [address] Scan Report Signed Patient: Jeremy Barros MR#: [id number] : 1970 Acct:[id number] Age/Sex: 53 / M ADM Date: 06/03/24 Loc: HO.CT Attending Dr: Jennifer Marcum PA-C Ordering Physician: Jennifer Marcum PA-C Date of Service: 06/03/24 Procedure(s): CT lung screening Accession Number(s): [id number] cc: Erika Harding MD; Jennifer Marcum PA-C Report Number: [id number]: Total DLP = 117.00 mGy-cm CLINICAL HISTORY: [...] signed by Connie Gan MD in OV> 06/04/2416 DD/ 4 TD/TT: 06/04/24 0915 Clinical Pharmacist: Procedure Note Donotuseinterpreter, Image - 06/04/[address] [address] [address] Scan Report Signed Patient: Jeremy Barros MMR#: [id number] : 1970Acct:[id number] Age/Sex: 53 / MADM Date: 06/03/24 Loc: HO.CT Attending Dr: Jennifer Marcum PA-C Ordering Physician: Jennifer Marcum PA-C Date of Service: 06/03/24 Procedure(s): CT lung screening Accession Number(s): [id number] cc: Erika Harding MD; Jennifer Marcum PA-C Report Number: [id number]: Total DLP = 117.00 mGy-cm CLINICAL HISTORY: [...] in OV> 06/04/24915 DD/ 4 TD/TT: 06/04/24914 Clinical Pharmacist: [facility] External Provider IMG CT PROCEDURES Final Result * (ABNORMAL) Lipid Panel with Reflex to Direct LDL (04/08/2024 9:55 AM EST) Triglycerides 125 <150 mg/dL [facility] Comment:Desirable Triglyceri de: less than 150 mg/dLBorderline High Triglyceride 150-199 mg/dLHigh Triglyceride: 200-499 mg/dLVery High Triglyceride: greater than or equal to 5OO mg/dL Cholesterol 151 <200 mg/dL [facility] Comment:Desirable Cholestero l: less than 200 mg/dLBorderline High Cholesterol: 200-239 mg/dLHigh Cholesterol: greater than 239 mg/dL LDL Cholesterol Calculated 97 <100 mg/dL [facility] Comment:Desirable LDL: less than 100 mg/dLNear Optimal/Above Optimal LDL: 110- 129 mg/dLBorderline High LDL: 130-159 mg/dLHigh LDL: 160-189 mg/dLVery High LDL: greater than or equal to 190 mg/dL HDL Cholesterol 29(L) >40 mg/dL [facility] Comment:Desirable HDL: great er than 40 mg/dL Note: This HDL assay may give artificially low results in patients with liver disease. Blood 04/08/2024 9:55 AM EST 04/08/2024 9:55 AM EST Erika Harding MD LAB BLOOD ORDERABLES Fin al Result [facility] [address] [place] [address] [phone] from Last 3 Months or Most Recently Relevant to Health Maintenance Insurance MEDICARE Care Teams Auto Repair Shop Manager Relationship Specialty Start Date End Date Erika Harding MD [address] [place] [phone] PCP - General Family Medicine 11/28/15
--- OUTSIDE RECORDS SUMMARY | 2024-12-22 08:15 | XMS_ITS | Encounter Summary ---
Author Organization [employer] Address 75 [facility] 7t [place] [address] Care Team Providers Care Upset Welding Machine Operator Name Role Phone Erika Harding MD Primary Care Provider + Reason for Visit * Reason Onset Date Comments Med Refill 02/26/2022 Encounter Details Date Type Department Care Team ([facility] st Contact Info) Description 02/26/2022 Telephone [facility] MEDICINE 230 [place], [place] [phone] Erika Harding MD 230 [place], [place] [phone] Med Refill Social History Tobacco Use Types [...] # 1157 * Telephone Encounter - Lew López - 02/26/2022 1:44 PM EST Tc from pt requesting med refill Lisinopril 10 mg ) ( metoprolol xl 100 mg ) documented in this encounter Plan of Treatment Upcoming Encounters Date Type Department Care Team (Late st Contact Info) Description 01/17/2025 2:00 PM EST Clinical Support [facility] MEDICINE [address] [place], [place] [phone] Padma Mujica RN 04/14/2025 2:00 PM EST Office Visit [facility] OPTOMETRY [address] [place], [place] [phone] Flower Chavez, OD [address] [place] [address] documented as of this encounter Visit Diagnoses Not on filedocumented in this encounter Care Teams Upset Welding Machine Operator Relationship Specialty Start Date End Date Erika Harding MD [address] [place] [address] PCP - General Family Medicine 11/28/15 documented as of this encounter
--- OUTSIDE RECORDS SUMMARY | 2024-12-22 08:15 | XMS_ITS | Encounter Summary ---
Author Organization [employer] Address 75 [facility] 7t [place] [address] Care Team Providers Care Medical Radiation Dosimetrist Name Role Phone Erika Harding MD Primary Care Provider + Reason for Visit * Reason Onset Date Comments Prior Authorization 12/20/2024 [facility]: Lidocaine 5% Patch Encounter Details Date Type Department Care Team ([facility] st Contact Info) Description 12/20/2024 Telephone [facility] MEDICINE [address] [place], [place] [phone] Erika Harding MD [address] [place], [place] [phone] Prior Authorization ([facility]: Lidocaine 5% Patch) Social History Tobacco Use Types Packs/Day Years [...] the past 12 months, has t he [employer], gas, oil or water [employer] threatened to shut off services in your [...] encounter Miscellaneous Notes * Telephone Encounter - Deepa Mendoza - 12/20/2024 3:02 PM EST AMANDA initiated on Covermymeds for Lidicaine 5% Patch. Approval/denial pending. (Hicks: [id number]) AMANDA Rx #: [id number] documented in this encounter Plan of Treatment Upcoming Encounters Date Type Department Care Team (Late st Contact Info) Description 01/17/2025 2:00 PM EST Clinical Support [facility] MEDICINE [address] [place] [address] Padma Mujica RN 04/14/2025 2:00 PM EST Office Visit [facility] OPTOMETRY [address] [place] [address] Flower Chavez, OD [address] [place] [address] documented as of this encounter Visit Diagnoses Not on filedocumented in this encounter Additional Health Concerns Assessment Noted Time PHQ-9 Depression Total Score: 0 12/07/19 25 10:09 AM EDT documented as of this encounter Care Teams Medical Radiation Dosimetrist Relationship Specialty Start Date End Date Erika Harding MD [address] [place] [address] PCP - General Family Medicine 11/28/15 documented as of this encounter
--- OUTSIDE RECORDS SUMMARY | 2024-12-22 08:15 | XMS_ITS | Encounter Summary ---
Author Organization [employer] Address [address] [place] [address] 7t [place] [address] Care Team Providers Care Gill Tender Name Role Phone Erika Harding MD Primary Care Provider + Encounter Details Date Type Department Care Team (Late Contact Info) Description 03/27/2022 Abstract [facility]ULT D[facility]AL [address] [place], [place] [phone] Jeremy Morse DDS [address] [place], [place] [phone] Social History Tobacco Use Types Packs/Day Years [...] Department Care Team (Late Contact Info) Description 01/17/2025 2:00 PM EST Clinical Support [facility] MEDICINE [address] [place] [address] Padma Mujica RN 04/14/2025 2:00 PM EST Office Visit [facility] OPTOMETRY [address] [place], [place] [phone] Flower Chavez, OD [address] [place] [address] documented as of this encounter Visit Diagnoses Not on filedocumented in this encounter Care Teams Gill Tender Relationship Specialty Start Date End Date Erika Harding MD [address] [place] [phone] PCP - General Family Medicine 11/28/15 documented as of this encounter
--- OUTSIDE RECORDS SUMMARY | 2024-12-22 08:16 | XMS_ITS | Clinical Summary ---
Author Organization [facility] Address [address] [place] [address] Phone Care Team Providers Care Nursing Specialist Name Role Phone Giovani Tinoco MD Primary Care Provider [phone] Allergies Active Allergy Reactions Criticality Noted Date [...] to 38.9 in adult 02/23/2024 Cocaine abuse ([facility] V24, [facility] V28) 014 Overview (01/06/2024): See uds 02/2013 [...] ars (1 of 2 - PCV) 1989 RSV Immunization Adult Patie nts (1 - Risk 50-74 years 1-dose series) 2020 Zoster Vaccines (1 of 2) 2020 Cholesterol Screening (Lipid Panel) 01/19/2022 HIV Screening 01/19/2022 Hepatitis C Screening 01/19/2022 Lung Cancer Screening (Low D ose CT) 01/19/2022 Social Influencers of Health Screening 01/19/2022 Depression Screening 02/17/2024 COVID-19 Vaccine ( - 2023-2 5 season) 2024 Influenza Vaccine (#1) 2024 Hypertension/CHF/CAD Annual BMP Blood Test 04/08/2025 04/08/2024 HIB Vaccines Aged Out No longer eligi [...] Insurance MEDICARE MEDICAID - [place] Care Teams Nursing Specialist Relationship Specialty Start Date End Date Giovani Tinoco MD [address] [place] [phone] PCP - General Internal Medicine 12/28/23
--- OUTSIDE RECORDS SUMMARY | 2024-12-22 08:16 | XMS_ITS | Encounter Summary ---
Author Organization [employer] Address 75 [facility] 7t [place] [address] Care Team Providers Care Car Washer Name Role Phone Erika Harding MD Primary Care Provider + Encounter Details Date Type Department Care Team (Late Contact Info) Description 06/13/2022 Orders Only [facility] [address] [place], [place] [phone] Yessi Wayne LPN Social History Tobacco Use [...] Description 01/17/2025 2:00 PM EST Clinical Support [facility] MEDICINE 230 [place], [place] [phone] Padma Mujica RN 04/14/2025 2:00 PM EST Office Visit [facility] OPTOMETRY [address] [place] [address] Yeseniapanfilo Flower, OD [address] [place] [address] documented as of this encounter Visit Diagnoses Not on filedocumented in this encounter Care Teams Car Washer Relationship Specialty Start Date End Date Erika Harding MD [address] [place] [address] PCP - General Family Medicine 11/28/15 documented as of this encounter
--- OUTSIDE RECORDS SUMMARY | 2024-12-22 08:16 | XMS_ITS | Encounter Summary ---
Author Organization [employer] Address 75 [facility] 7t [place] [address] Care Team Providers Care Chief Estimator Name Role Phone Erika Harding MD Primary Care Provider + Encounter Details Date Type Department Care Team (Late Contact Info) Description 04/18/2022 Abstract [facility]ULT D[facility] [address] [place], [place] [phone] Heladio Alberts, SANYA [address] [place], [place] [phone] Social History Tobacco Use Types Packs/Day Years [...] Description 01/17/2025 2:00 PM EST Clinical Support [facility] [address] [place] [address] Padma Mujica RN 04/14/2025 2:00 PM EST Office Visit [facility] OPTOMETRY [address] [place] [address] Flower Chavez, OD [address] [place] [address] documented as of this encounter Visit Diagnoses Not on filedocumented in this encounter Care Teams Chief Estimator Relationship Specialty Start Date End Date Erika Hardnig MD [address] [place] [address] PCP - General Family Medicine 11/28/15 documented as of this encounter
--- NOTE | 2025-01-20 10:21 | HO.ANESPROP2 ---
Documented by User: Chanel Morales NP 01/20/25 10:22 HPI - Anesthesia Eval Consult details Narrative: 54 yr old male for colonoscopy ?quit smoking PMF Active Problems Active Problems: All Active Problems Personal history of nicotine dependence (Acute) Past Medical History Medical History Hypertension Personal history of nicotine dependence Obesity Surgical History Surgical History History of right knee surgery History of appendectomy Social History Social History Patient Tobacco Use Status: Former Tobacco user Years Smoked: (onset 16yo, 1/2-1ppd x 37yrs, 27pyh - quit 01/2024) Advance Directives: No Advance Directives Information Provided: Yes Meds Allergies Allergy/AdvReac Type Severity Reaction Status Date / Time aspirin (ASA) Allergy Unknown SWELLING Verified 01/24/25 07:39 Home Medications ?Medication ?Instructions ?Recorded ?Confirmed ?Last Taken ?Type albuterol sulfate 90 mcg/actuation 2 puff inhalation Q6H PRN 08/24/24 01/24/25 Unknown History aerosol inhaler (Ventolin HFA) respiratory lisinopril 20 1 tab PO DAILY 08/24/24 01/24/25 Unknown History mg-hydrochlorothiazide 25 mg tablet metoprolol succinate 100 mg 100 mg PO QAM 08/24/24 01/24/25 01/24/25 History tablet,extended release 24 hr oxycodone 5 mg tablet mg PO 08/24/24 Unknown History pregabalin 75 mg capsule 75 mg PO BID 08/24/24 01/24/25 Unknown History Documented by User: Keith Dickerson MD 01/24/25 07:51 PMFSH Past Medical History Medical History Hypertension Personal history of nicotine dependence Obesity Family History Family history of problems with anesthesia: No Surgical History Surgical History History of right knee surgery History of appendectomy History of Problems with Anesthesia: No Social History Social History Patient Tobacco Use Status: Former Tobacco user Years Smoked: (onset 16yo, 1/2-1ppd x 37yrs, 27pyh - quit 01/2024) Advance Directives: No Advance Directives Information Provided: Yes Meds Allergies Allergy/AdvReac Type Severity Reaction Status Date / Time aspirin (ASA) Allergy Unknown SWELLING Verified 01/24/25 07:39 Home Medications ?Medication ?Instructions ?Recorded ?Confirmed ?Last Taken ?Type albuterol sulfate 90 mcg/actuation 2 puff inhalation Q6H PRN 08/24/24 01/24/25 Unknown History aerosol inhaler (Ventolin HFA) respiratory lisinopril 20 1 tab PO DAILY 08/24/24 01/24/25 Unknown History mg-hydrochlorothiazide 25 mg tablet metoprolol succinate 100 mg 100 mg PO QAM 08/24/24 01/24/25 01/24/25 History tablet,extended release 24 hr oxycodone 5 mg tablet mg PO 08/24/24 Unknown History pregabalin 75 mg capsule 75 mg PO BID 08/24/24 01/24/25 Unknown History Exam Exam Date and Time: 01/24/25 Airway Mallampati Class: II TM Dist: >3cm Neck ROM: Full Heart: rrr Lungs: crab vesicular Assessment and Plan Assessment Anesthesia Assessment: Anesthesia Plan Discussed and Chart Reviewed Final Anesthetic Review Family History of Problems with Anesthesia: No History of Problems with Anesthesia: No NPO: Yes ASA Class: II Final Preanesthetic Review: No Changes in Pt Med Stat, Meds/Allgs Chart Reviewed, Consent Obtained/Reviewed and Anes Risks/Benef Reviewed Patient Risk: Low Procedure Risk: Low Anesthetic Plan Anesthetic Plan: MAC: Disposition: Standard PACU
[2025-01-24] MEDS: Lactated Ringers 1,000 ML 100 ML IVCONT (07:44)
--- NOTE | 2025-01-24 07:44 | MHC.SHP ---
Pre-Procedural Eval Section A - 24 Hr Update-Section A only Date of Service: 01/24/25 Section B - Complete if H&P > 30 days Chief Complaint: screening Relevant Family History (Specify if Yes): No Relevant Social History: None Present Medications: see Short Stay Collaborative assessment Medical History: Significant History (Hypertension Personal history of nicotine dependence Obesity) History of Previous Operations: Relevant previous surgery/procedure and date(s) (History of right knee surgery History of appendectomy) Allergies: Allergies Allergy/AdvReac Type Severity Reaction Status Date / Time aspirin (ASA) Allergy Unknown SWELLING Verified 01/24/25 07:39 Review of Systems Sugical H&P ROS: Negative: Constitution, Cardiovascular, Respiratory, Neurological, Psychiatric, Hem-Onc, Allergic/Immunologic, Gastrointestinal, Genitourinary, Musculoskeletal, Integumentary, Endocrine and Eyes/Ears/Nose/Throat Exam Surgical H&P Exam: Normal: HEENT, Normal: Heart, Normal: Lungs, Normal: Extremities, Normal: Abdomen, Normal: Skin and Normal: Neurological Plan Diagnosis/Plan: Unchanged I have reviewed the history and physical and performed a pertinent physical examination on my patient. No changes have occurred unless specified. Time Spent With Patient Time: Total time managing care of this patient today ____ minutes.
[2025-01-24 07:45] VITALS: BP 140/97; PULSE 79; RESP 18; TEMP 36.7; O2SAT 98
[2025-01-24 08:11] VITALS: BMI 35.9
--- NOTE | 2025-01-24 09:16 | P.OPN-COLO_ITS ---
Colonoscopy Operative Note Operative Note Date of Service: 01/24/25 Narrative: Operative Information Procedure Description: Colonoscopy Indication: screening Anesthesia: MAC COLONOSCOPY Instrument: Olympus variable stiffness pediatric scope 190L Colonoscopy Monitoring: Vital signs and clinical assessment, continuous EKG monitoring, Pulse oximetry, Carbon Dioxide monitoring and blood pressure monitoring were done throughout the procedure. Colon withdrawal time was 8 minutes. Procedure: The patient was placed in the left lateral decubitis position and pre-procedure medications were administered. After a digital rectal examination of the ano-rectum, the video colonoscope was inserted into the rectum and advanced through the colon to the cecum/TI. The colonoscope was slowly withdrawn in a retrograde panoramic fashion and the colon mucosa was carefully examined including a retroflexed view of the rectum. Findings and interventions are described below. Procedure Difficulty: easy Findings: Terminal Ileum-normal Cecum:normal Right sided retroflexion- normal Ascending Colon: normal Transverse Colon -normal Descending Colon:normal Sigmoid Colon: moderate severe diverticulosis, 8-10 mm sessile polyp noted in proximal sigmoid, removed with cold snare Rectum: Retroflexion with small to medium internal hemorrhoids seen, grade I Anorectum - normal Intervention: cold snare Colon preparation: [place] Bowel Preparation Scale Right colon; 1-2 Transverse colon: 2 Left colon; 2 (0 = Unprepared colon segment with mucosa not seen due to solid stool that cannot be cleared. 1 = Portion of mucosa of the colon segment seen, but other areas of the colon segment not well seen due to staining, residual stool and/or opaque liquid. 2 = Minor amount of residual staining, small fragments of stool and/or opaque liquid, but mucosa of colon segment seen well. 3 = Entire mucosa of colon segment seen well with no residual staining, small fragments of stool or opaque liquid) Impression and Post Procedure Diagnosis: diverticulosis colon polyp internal hemorrhoids Plan: High fiber diet leaflet Avoid straining at stool, epsom salts and sitz bath, anusol supps or cream Repeat Colonoscopy in 5 years due to fair prep on right or earlier if clinically indicated Above findings were reviewed with the patient and relevant handouts were provided if indicated.
[2025-01-24 09:20] VITALS: BP 98/66; PULSE 64; RESP 10; TEMP 36.1; O2SAT 96
[2025-01-24 09:35] VITALS: BP 113/72; PULSE 62; RESP 16; TEMP 36.2; O2SAT 98
== END 2025-01-24 10:12 | disposition home or self-care (01) ==
PROVIDERS: PCP Internal Medicine; Visit Provider Internal Medicine Gastroenterology
PROC: 0DJD8ZZ Inspection of Lower Intestinal Tract, Via Natural or Artificial Opening Endoscopic (ICD-10-PCS; CPT 45378; principal; 2025-01-24 09:10)
DX: Z12.11 Encounter for screening for malignant neoplasm of colon (principal); K57.30 Diverticulosis of large intestine without perforation or abscess without bleeding; K64.0 First degree hemorrhoids; D12.5 Benign neoplasm of sigmoid colon
CPT/HCPCS: 45385; 88305; J0168; J2003; J2704

== ENCOUNTER → 2025-01-24 07:34 | Outpatient (BNV) | payer MEDICAID, SELFPAY | PROVIDERS: PCP Internal Medicine; Visit Provider Internal Medicine Gastroenterology | DX: Z12.11 Encounter for screening for malignant neoplasm of colon (principal); K63.5 Polyp of colon; K57.30 Diverticulosis of large intestine without perforation or abscess without bleeding; K64.0 First degree hemorrhoids | CPT/HCPCS: 45385 ==